=== PATIENT | male | born 1965 ===

== ENCOUNTER 2017-02-21 12:18 | Day surgery (SDC) | payer BC ==
[2017-02-21 12:41] VITALS: BMI 34.0
[2017-02-21 12:57] LABS: BASO # 0.1 K/uL (0.0-0.2); BASO % 1.1 % (0.0-2.0); EOS # 0.3 K/uL (0.0-0.7); EOS % 5.1 % (0.0-4.0); LYMPH # 1.9 K/uL (1.0-4.3); LYMPH % 37.2 % (20.0-40.0); MEAN CELL VOLUME 90.5 fL (80.0-94.0); MEAN CORPUSCULAR HEMOGLOBIN 31.1 pg (27.0-31.0); MEAN CORPUSCULAR HGB CONC 34.4 g/dL (33.0-37.0); MEAN PLATELET VOLUME 7.9 fL (7.2-11.7); MONO # 0.5 K/uL (0.0-0.8); MONO % 10.2 % (0.0-10.0); NEUT # 2.4 K/uL (1.8-7.0); NEUT % 46.4 % (50.0-75.0); RBC 5.19 Mil/uL (4.40-5.90); RED CELL DISTRIBUTION WIDTH 13.6 % (11.5-14.5); WHITE BLOOD COUNT 5.2 K/uL (4.8-10.8)
[2017-02-21 12:59] LABS: HEMOGLOBIN 16.2 g/dL (12.0-18.0)
[2017-02-21 13:31] LABS: BLOOD UREA NITROGEN 13 mg/dL (9-20); CALCIUM 8.2 mg/dl (8.6-10.4); GFR AFRICAN-AMERICAN > 60; GFR NON-AFRICAN AMERICAN > 60
[2017-02-21] MEDS ORDERED: Bupivacaine HCl 0.5% PF (10 ml) Inj ONE (15:14)
[2017-02-21] MEDS ORDERED: Lactated Ringer's 1,000 ML IV ONE ×2 (15:20→17:45)
[2017-02-21] MEDS ORDERED: Propofol 10 mg/ml Inj (20 ML) ONE (15:24)
[2017-02-21] MEDS ORDERED: Midazolam 2 MG/2 ML VIAL ONE (15:24)
[2017-02-21] MEDS: ceFAZolin IV 2 gm in Dextrose 2 GM/50 ML BAG IVPB ONE ×2 (15:30→15:35)
[2017-02-21] MEDS ORDERED: Oxycodone/Acetaminophen 5/325 mg Tab PO PRN (16:47)
[2017-02-21 17:09] VITALS: O2SAT 100
[2017-02-21 18:13] VITALS: BP 138/68; PULSE 67; RESP 18; TEMP 98
--- NOTE | 2017-02-22 03:25 | HP ---
REASON FOR ADMISSION: Right hydrocelectomy. HISTORY OF PRESENT ILLNESS: Mr. Chino is a very pleasant gentleman. He is a 61 years old. He has scrotal discomfort and pain. He has a large right hydrocele, detected by ultrasound. We discussed the options and he would actually like it removed. We discussed drainage. We discussed surgical removal, which is what he is here for. We discussed observation, we discussed no treatment. But he is very uncomfortable with it, as it gets in his way. He does not like the way it looks, and it is just uncomfortable for him when he spends too much time walking and it is a fairly large hydrocele fat. PAST MEDICAL AND SURGICAL HISTORY: Significant. He has underlying . No history of an IL. His previous surgery is noted to be . MEDICATIONS: See the chart. ALLERGIES: NONE. 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 REVIEW OF SYSTEMS: As listed above. No weight loss, chest pain, shortness of breath or the like. The patient has minimal voiding complaints. PHYSICAL EXAMINATION: GENERAL: A well-nourished male, in no apparent distress. HEENT: Sclera nonicteric, noninjected, normocephalic, atraumatic. LUNGS: Clear. HEART: Normal S1 and S2. ABDOMEN: Overall, soft. The incisional scar is noted. He has a normal male phallus, not circumcised, foreskin retracts very easily. His left hemiscrotum within normal limits. May be some fluid, otherwise hemiscrotum has a large hydrocele noted. See the pictures that are included. IMPRESSION: The diagnosis then is a right hydrocele (actually bilateral). PLAN: We discussed the options. We discussed observation versus surgery versus drainage. I did not put a drain, as just draining the water out would not be helpful. Discussing the options to the patient, he was given the offer today for a hydrocelectomy on the right side. I explained to the patient details, risks and benefits including the risks for recurrence. Discussing all of the options, we will plan to proceed: 1. Antibiotic prophylaxis. 2. Hydrocelectomy. Then further plans will follow. I did explain the risk of recurrence. I discussed also that initially there will be some good swelling to be expected. Further plans to follow. Henry Hurtado MD [facility] # [id number]
--- NOTE | 2017-02-22 13:11 | OP ---
PROCEDURE DATE: PREOPERATIVE DIAGNOSIS: Right hydrocele. POSTOPERATIVE DIAGNOSIS: Right hydrocele. PROCEDURE: Right hydrocelectomy. SURGEON: Henry Hurtado MD COMPLICATIONS: No complications. BLOOD LOSS: Less than 10 mL. DRAIN: A [place] drain. FINDINGS: There is about 300 mL to 400 mL of clear yellow fluid. Otherwise, unremarkable hydrocele sac. The testicle itself was within normal limits. Appearance, white testicle. Normal size. It is a simple cyst. There were no complications. At the termination of the procedure, we had the testicle in proper anatomic position. We gave the patient Marcaine for postop analgesia. We provided scrotal support and a [place], which was secured in with sutures. INDICATION: See history and physical. This is a very pleasant gentleman, and he is here for the above procedure. We discussed risks, benefits, and alternatives. DESCRIPTION OF PROCEDURE: After obtaining informed consent, the patient was placed on the table. Routine monitors were placed. Time-out was called to confirm the patient, positioning. The patient was given antibiotic prophylactics. We now made a transverse incision in the portion of the scrotum. We went down slowly, carefully, meticulously until we dissected off the hydrocele sac. We delivered the sac intact. Now, at this point, once we had . We opened up the sac. Drained the fluid, clear yellow fluid about 300 mL to 400 mL. We everted the edges of the sac. We sent a little specimen just to confirm the pathology. We examined the testicle and it looked a nice white color. We now everted the edges and repaired in Lord technique. I actually took the pictures afterwards to demonstrate. We had obliterated the space nicely and not too tight. We examined the testicle. It had good color. We returned it to its anatomical position. We placed the [place] in below. We delivered it through the wound and secured it into place. We now closed the wound. We had injected the cord with Marcaine. We injected the skin with Marcaine. We closed with a mattress suture. We applied scrotal support. The patient tolerated these without complications. Further plans will follow. Henry Hurtado MD
--- NOTE | 2017-02-23 23:13 | CARD ---
APPROVED REPORT EKG Measurement Heart [id number] <Conclusion> Normal sinus rhythm Anterior infarct, age undetermined Abnormal ECG
== END 2017-02-21 18:35 | disposition home or self-care (01) ==
LOC: C.SDS 12:18
PROVIDERS: ATTEND Urology
DX: N43.3 Hydrocele, unspecified (principal); N43.2 Other hydrocele
CPT/HCPCS: 36415; 55040; 80048; 85025; 88302; 93005; J0690; J2250; J2704; J3010; J7120

== ENCOUNTER 2017-06-13 05:42 | Inpatient (IN) | payer BC ==
[2017-06-06 09:11] VITALS: BMI 32.5
[2017-06-13] MEDS ORDERED: Midazolam 2 MG/2 ML VIAL ONE (07:28)
[2017-06-13] MEDS ORDERED: Rocuronium 10 mg/ml (10 ml) ONE (07:28)
[2017-06-13] MEDS ORDERED: Propofol 10 mg/ml Inj (20 ML) ONE ×2 (07:28→08:36)
[2017-06-13] MEDS ORDERED: Succinylcholine Chloride 20 mg/ml Syr (5 ml) IV ONE (07:28)
[2017-06-13] MEDS: ceFAZolin 1 gm in NS 2 GM/200 ML BAG IVPB ONE ×2 (08:15→08:17)
[2017-06-13] MEDS ORDERED: Rocuronium 10 mg/ml (5 ml) ONE (09:44)
--- NOTE | 2017-06-13 11:42 | PCM.SURG1 ---
Surgeon's Initial Post Op Note - Surgeon's Notes Surgeon: Dr. Coronado Skoog Operator: Dr. Rodriguez PGY-3, Martín Mccloud MS3 Type of Anesthesia: General Endo Anesthesia Administered By: Dr. Prieto Pre-Operative Diagnosis: Incisional Hernia Operative Findings: See operative report Post-Operative Diagnosis: Same Operation Performed: 1) Incisional Hernia repair with mesh. 2) Extensive lysis of dense adhesions. 3) Repair of enterotomy & SB resection with anastomosis x 2 Specimen/Specimens Removed: Old mesh, part of small bowel Estimated Blood Loss: EBL {In ML}: 250 Blood Products Given: N/A Drains Used: No Drains Post-Op Condition: Good Date of Surgery/Procedure: 06/13/17 Time of Surgery/Procedure: 11:42
[2017-06-13] MEDS: HYDROmorphone 0.5 mg/0.5 ml ISec IVP PRN ×2 (12:15→12:35)
[2017-06-13] MEDS: cefOXitin IV 1 gm in Dextrose 1 GM/50 ML BAG IVPB SCH ×2 (12:36→19:12)
[2017-06-13] MEDS: metroNIDAZOLE IV 500 mg/100 ml 500 MG/100 ML BAG IVPB SCH ×2 (14:00→21:07)
[2017-06-13] MEDS: Lactated Ringer's 1,000 ML IV SCH ×2 (15:06→20:45)
--- NOTE | 2017-06-13 22:25 | OP ---
PROCEDURE DATE: 06/13/2017 PREOPERATIVE DIAGNOSIS: Incisional hernia, recurrent. PROCEDURE: Repair of incisional hernia with mesh and small bowel resection with anastomosis x3. SURGEON: Crow Coronado Jr., MD COUNT TEAM MEMBER: Dr. Rodriguez. ANESTHESIOLOGIST: Dr. Prieto. INDICATIONS: The patient is an older middle aged man who has history of diverticulitis, repair of an incisional hernia, multiple problems like this in the past. He is since having increasing pain related to hernia, just the left of the umbilicus. OPERATIVE FINDINGS: The previous mesh three times again to the small bowel, three times the small bowel had to be repaired. After the repair had been carried out, we completely irrigated out the abdomen, and we completely changed our gowns etc., and then we repaired. There was no large biological mesh. Instead we repaired with a Ventrio mesh, measuring approximately 8 x 11. The defect itself was approximately 4 inches long. Subsequent to this, we then closed the abdomen with running sutures of Novafil and filled the mesh into place. Blood loss was 250 mL or less, and the operation carried out was repair of recurrent incisional hernia with mesh and small bowel resection with anastomoses x3. The operation was much more difficult than usual that any dense intraabdominal adhesions required resection of some previously placed mesh, resection of small bowel, and dense adhesions which made the operation more difficult and quite long. Operation carried out, repair of recurrent incisional hernia with mesh and small bowel resection with anastomosis x3. The bowel was thoroughly searched before and after we repaired the enterotomies and before resecting the small bowel multiple times and checked again to make sure that there was no other injury. The visible portions of the colon were also checked the same way to make sure that there was no other injury or occult injury to the bowel and none was identified. The abdomen w as washed out again with solution. Crow Coronado Jr., MD
[2017-06-14] MEDS: cefOXitin IV 1 gm in Dextrose 1 GM/50 ML BAG IVPB SCH ×3 (03:30→19:23)
[2017-06-14] MEDS: metroNIDAZOLE IV 500 mg/100 ml 500 MG/100 ML BAG IVPB SCH ×3 (05:30→21:25)
[2017-06-14 08:10] LABS: BASO % 0.6 % (0.0-2.0); EOS # 0.2 K/uL (0.0-0.7); LYMPH % 13.7 % (20.0-40.0); MEAN CELL VOLUME 90.9 fL (80.0-94.0); MEAN CORPUSCULAR HEMOGLOBIN 31.4 pg (27.0-31.0); MEAN CORPUSCULAR HGB CONC 34.5 g/dL (33.0-37.0); MEAN PLATELET VOLUME 8.2 fL (7.2-11.7); MONO # 0.7 K/uL (0.0-0.8); MONO % 10.1 % (0.0-10.0); NEUT # 5.3 K/uL (1.8-7.0); NEUT % 72.6 % (50.0-75.0); NRBC % 0.1 % (0.0-2.0); RBC 4.77 Mil/uL (4.40-5.90); RED CELL DISTRIBUTION WIDTH 13.9 % (11.5-14.5); WHITE BLOOD COUNT 7.3 K/uL (4.8-10.8)
[2017-06-14 08:31] LABS: ALBUMIN 3.3 g/dL (3.5-5.0); ALT/SGPT 47 U/L (21-72); AST/SGOT 26 U/L (17-59); BLOOD UREA NITROGEN 16 mg/dL (9-20); CALCIUM 7.7 mg/dl (8.6-10.4); GFR AFRICAN-AMERICAN > 60; GFR NON-AFRICAN AMERICAN > 60
--- NOTE | 2017-06-14 08:58 | CP.PCM.PN ---
Subjective - Date & Time of Evaluation Date of Evaluation: 06/14/17 Time of Evaluation: 06:40 - Subjective Subjective: General Surgery- Dr. Coronado Patient seen and examined at bedside this AM. No acute events overnight. Denies currnt BM or Flatus. Fernandez w/ good urine output. NGT minimal bilious fluid. Dressing C/D/I. Pain controlled on PERSONNEL COORDINATOR. Objective - Vital Signs/Intake and Output Vital Signs (last 24 hours): Temp Pulse Resp BP Pulse Ox 98.4 F 90 20 126/76 97 06/14/17 08:16 06/14/17 08:16 06/14/17 08:16 06/14/17 08:16 06/14/17 08:16 Intake and Output: 06/14/17 06/14/17 06:59 18:59 Intake Total 1600 Output Total 1330 Balance 270 - Medications Medications: Current Medications Enoxaparin Sodium (Lovenox) 40 mg SC DAILY [facility] Ergocalciferol (Drisdol 50,000 Intl Units Cap) 1 cap PO DAILY [facility] Hydrochlorothiazide (Microzide) 12.5 mg PO DAILY [facility] Hydromorphone/Sodium Chloride (Dilaudid Internet Marketing Consultant) 6 mg IV Q4H PRN; Protocol PRN Reason: Pain, moderate (4-7) Last Admin: 06/14/17 06:30 Dose: 6 mg Cefoxitin Sodium (Mefoxin Iv 1 Gm Duplex) 1 gm in 50 mls @ 50 mls/hr IVPB Q8H [facility] PRN Reason: Protocol Stop: 06/16/17 12:01 Last Admin: 06/14/17 03:30 Dose: 50 mls/hr Metronidazole (Flagyl) 500 mg in 100 mls @ 100 mls/hr IVPB Q8 [facility] PRN Reason: Protocol Stop: 06/16/17 14:01 Last Admin: 06/14/17 05:30 Dose: 100 mls/hr Lactated Ringer's (Lactated Ringer's) 1,000 mls @ 100 mls/hr IV .Q10H [facility] Last Admin: 06/13/17 20:45 Dose: 100 mls/hr Losartan Potassium (Cozaar) 100 mg PO DAILY [facility] Multivitamins (Hexavitamin) 1 tab PO DAILY [facility] Ondansetron HCl (Zofran Inj) 4 mg IVP Q6 PRN PRN Reason: Nausea/Vomiting Pantoprazole Sodium (Protonix Inj) 40 mg IVP DAILY [facility] Last Admin: 06/14/17 02:27 Dose: 40 mg - Labs Labs: 06/14/17 07:56 06/14/17 07:56 - Constitutional Appears: Non-toxic, No Acute Distress - Head Exam Head Exam: ATRAUMATIC - Eye Exam Eye Exam: EOMI - ENT Exam ENT Exam: Mucous Membranes Moist - Respiratory Exam Respiratory Exam: NORMAL BREATHING PATTERN. absent: Accessory Muscle Use, Respiratory Distress - Cardiovascular Exam Cardiovascular Exam: +S1, +S2. absent: Bradycardia, Tachycardia - GI/Abdominal Exam GI & Abdominal Exam: Distended, Soft, Tenderness (appropriately tender around incision). absent: Firm, Guarding, Rigid - Exam Additional comments: fernandez in place w/ clear output - Extremities Exam Extremities Exam: Normal Inspection. absent: Calf Tenderness - Neurological Exam Neurological Exam: Alert, Awake, Oriented x3 - Psychiatric Exam Psychiatric exam: Normal Affect - Skin Skin Exam: Normal Color, Warm Assessment and Plan - Assessment and Plan (Free Text) Assessment: 51M s/p Incisional Hernia repair with mesh, Extensive lysis of dense adhesions , Repair of enterotomy & SB resection with anastomosis x 2, POD#1 Plan: - d/c Fernandez - pain control on PERSONNEL COORDINATOR prn - NGT in place - strict I/O - OOB and ambulate & IC use - NPO - Discussed w/ Dr. Coronado surgical attending PGY1
[2017-06-14] MEDS: Multiple Vitamins Tab PO SCH (09:08)
[2017-06-14] MEDS: Ergocalciferol 50,000 Intl Units Cap PO SCH (09:09)
--- NOTE | 2017-06-14 09:24 | CP.PCM.CON ---
History of Present Illness - History of Present Illness History of Present Illness: CC: pre Op management 51 y/o male HTN, & former smoker. Patient had perforated Diverticulitis on 2011 , Had emergent surgery. He develop prolong ileus and abdominal hernia. For a year was advise c/o surgery for repair of hernia but got busy. Yesterday has surgery, adhelysis and ileostomy. Patient presently on NGT/ no flatus. Review of Systems - Review of Systems Systems not reviewed;Unavailable: Acuity of Condition - Constitutional Constitutional: Fever, Malaise. absent: Headache, Night Sweats, Sleep Apnea, Weight Loss, Weakness - EENT Eyes: absent: Discharge, Sees Flashes, Spots in Vision Ears: absent: Decreased Hearing, Ear Discharge, Dizziness Nose/Mouth/Throat: absent: Nasal Congestion, Sinus Pressure, Bleeding Gums, Dry Mouth, Mouth Pain - Cardiovascular Cardiovascular: absent: Chest Pain, Diaphoresis, Irregular Heart Rhythm, Leg Edema, Leg Ulcers, Orthopnea, Pedal Edema, Slow Heart Rate - Respiratory Respiratory: absent: Cough, Hemoptysis, Dyspnea on Exertion, Change in Mucous Color - Gastrointestinal Gastrointestinal: absent: Coffee Ground Emesis, Constipation, Diarrhea, Heartburn, Loose Stools, Nausea, Vomiting - Genitourinary Genitourinary: absent: Flank Pain, Nocturia, Urinary Incontinence, Urinary Urgency - Musculoskeletal Musculoskeletal: absent: Abnormal Gait, Myalgias, Neck Pain, Numbness, Stiffness , Tingling - Integumentary Integumentary: absent: Rash, Skin Ulcer, Sores, Swelling - Neurological Neurological: absent: Burning Sensations, Confusion, Focal Weakness, Headaches, Radicular Pain - Psychiatric Psychiatric: absent: Anxiety, Behavioral Changes, Depression, Difficulty Concentrating - Endocrine Endocrine: absent: Change in Libido, Fatigue, Palpitations, Polydipsia, Polyphagia, Polyuria Past Patient History - Infectious Disease Hx of Infectious Diseases: None - Past Medical History & Family History Past Medical History?: Yes - Past Social History Smoking Status: Never Smoked - CARDIAC Hx Cardiac Disorders: Yes (abn ekg dr esther oliver notified abn ekg) Hx Hypertension: Yes - PULMONARY Hx Respiratory Disorders: No - NEUROLOGICAL Hx Neurological Disorder: No - HEENT Hx HEENT Problems: Yes (glasses) - RENAL Hx Chronic Kidney Disease: Yes Hx Kidney Stones: Yes - ENDOCRINE/METABOLIC Hx Endocrine Disorders: Yes Hx Hypothyroidism: Yes (no longer needs meds) - HEMATOLOGICAL/ONCOLOGICAL Hx Blood Disorders: No - INTEGUMENTARY Hx Dermatological Problems: No - MUSCULOSKELETAL/RHEUMATOLOGICAL Hx Musculoskeletal Disorders: No Hx Falls: No - GASTROINTESTINAL Hx Gastrointestinal Disorders: Yes Hx Colostomy: Yes (due to ruptured diverticulosis then reversal) Hx Diverticulitis: Yes Hx Gall Bladder Disease: Yes Other/Comment: UMBILICAL HERNIA - GENITOURINARY/GYNECOLOGICAL Hx Genitourinary Disorders: Yes Other/Comment: hydrocelectomy - PSYCHIATRIC Hx Psychophysiologic Disorder: No Hx Substance Use: No - SURGICAL HISTORY Hx Surgeries: Yes Hx Cholecystectomy: Yes Hx Herniorrhaphy: Yes (VENTRAL/INCISIONAL) Other/Comment: lithotripsy - ANESTHESIA Hx Anesthesia: Yes Hx Anesthesia Reactions: No Hx Malignant Hyperthermia: No Has any member of the family had a problem w/ anesthesia?: No Meds Allergies/Adverse Reactions: Allergies Allergy/AdvReac Type Severity Reaction Status Date / Time No Known Allergies Allergy Verified 06/06/17 09:10 - Medications Medications: Current Medications Enoxaparin Sodium (Lovenox) 40 mg SC DAILY [facility] Ergocalciferol (Drisdol 50,000 Intl Units Cap) 1 cap PO DAILY [facility] Last Admin: 06/14/17 09:09 Dose: Not Given Hydromorphone/Sodium Chloride (Dilaudid Icu Nurse) 6 mg IV Q4H PRN; Protocol PRN Reason: Pain, moderate (4-7) Last Admin: 06/14/17 06:30 Dose: 6 mg Cefoxitin Sodium (Mefoxin Iv 1 Gm Duplex) 1 gm in 50 mls @ 50 mls/hr IVPB Q8H [facility] PRN Reason: Protocol Stop: 06/16/17 12:01 Last Admin: 06/14/17 03:30 Dose: 50 mls/hr Metronidazole (Flagyl) 500 mg in 100 mls @ 100 mls/hr IVPB Q8 [facility] PRN Reason: Protocol Stop: 06/16/17 14:01 Last Admin: 06/14/17 05:30 Dose: 100 mls/hr Potassium Chloride/Dextrose/Sod Cl (Potassium Chl 20 Meq In D5-1/2ns) 1,000 mls @ 120 mls/hr IV .Q8H20M [facility] Multivitamins (Hexavitamin) 1 tab PO DAILY [facility] Last Admin: 06/14/17 09:08 Dose: Not Given Nitroglycerin (Nitro-Bid 2% Oint) 0.5 ea TOP Q12 [facility] Ondansetron HCl (Zofran Inj) 4 mg IVP Q6 PRN PRN Reason: Nausea/Vomiting Pantoprazole Sodium (Protonix Inj) 40 mg IVP DAILY [facility] Physical Exam - Constitutional Appears: Well - Head Exam Head Exam: NORMAL INSPECTION - Eye Exam Eye Exam: absent: Normal appearance Pupil Exam: absent: Unequal - ENT Exam ENT Exam: absent: Mucous Membranes Moist - Neck Exam Neck exam: Positive for: Full Rom. Negative for: Lymphadenopathy, Thyromegaly - Respiratory Exam Respiratory Exam: Decreased Breath Sounds. absent: Rales, Rhonchi, Wheezes - Cardiovascular Exam Cardiovascular Exam: REGULAR RHYTHM, +S1, +S2. absent: Gallop, JVD, Systolic Murmur - GI/Abdominal Exam GI & Abdominal Exam: Distended, Soft. absent: Guarding - Extremities Exam Extremities exam: Positive for: full ROM, normal capillary refill. Negative for : calf tenderness, joint swelling, pedal edema Results - Vital Signs Recent Vital Signs: Last Vital Signs Temp 98.4 F 06/14/17 08:16 Pulse 90 06/14/17 08:16 Resp 20 06/14/17 08:16 BP 126/76 06/14/17 08:16 Pulse Ox 97 06/14/17 08:16 - Labs Result Diagrams: 06/14/17 07:56 06/14/17 07:56 Labs: Laboratory Results - last 24 hr 06/14/17 06/14/17 07:56 07:56 WBC 7.3 RBC 4.77 Hgb 15.0 Hct 43.4 MCV 90.9 MCH 31.4 H MCHC 34.5 RDW 13.9 Plt Count 242 MPV 8.2 Neut % (Auto) 72.6 Lymph % (Auto) 13.7 L [place] % (Auto) 10.1 H Eos % (Auto) 3.0 Baso % (Auto) 0.6 Neut # (Auto) 5.3 Lymph # (Auto) 1.0 [place] # (Auto) 0.7 Eos # (Auto) 0.2 Baso # (Auto) 0.0 Sodium 139 Potassium 4.3 Chloride 101 Carbon Dioxide 27 Anion Gap 15 BUN 16 Creatinine 1.1 Est GFR ( Amer) > 60 Est GFR (Non-Af Amer) > 60 Random Glucose 124 H Calcium 7.7 L Total Bilirubin 1.1 AST 26 ALT 47 Alkaline Phosphatase 53 Total Protein 6.5 Albumin 3.3 L Globulin 3.2 Albumin/Globulin Ratio 1.0 Assessment & Plan - Assessment and Plan (Free Text) Assessment: s/p Abdominal Surgery' HTN Cont supportive care Change BP meds topical
[2017-06-14] MEDS: Nitroglycerin 2% Ointment Foilpak UD TOP SCH ×2 (10:00→21:28)
[2017-06-14] MEDS: Enoxaparin 40 mg Syringe SC SCH (10:00)
[2017-06-14] MEDS: Potassium Ch 20mEq in D5-1/2NS 1,000 ML IV SCH ×3 (10:30→20:52)
[2017-06-14] MEDS: Lactated Ringer's 1,000 ML IV SCH (13:51)
[2017-06-15] MEDS: Potassium Ch 20mEq in D5-1/2NS 1,000 ML IV SCH ×4 (02:14→18:43)
[2017-06-15] MEDS: cefOXitin IV 1 gm in Dextrose 1 GM/50 ML BAG IVPB SCH ×3 (03:35→19:45)
[2017-06-15] MEDS: metroNIDAZOLE IV 500 mg/100 ml 500 MG/100 ML BAG IVPB SCH ×3 (05:55→21:33)
[2017-06-15 07:18] LABS: MEAN CELL VOLUME 90.7 fL (80.0-94.0); MEAN CORPUSCULAR HEMOGLOBIN 30.7 pg (27.0-31.0); MEAN CORPUSCULAR HGB CONC 33.9 g/dL (33.0-37.0); MEAN PLATELET VOLUME 8.1 fL (7.2-11.7); RBC 4.17 Mil/uL (4.40-5.90); RED CELL DISTRIBUTION WIDTH 14.2 % (11.5-14.5); WHITE BLOOD COUNT 8.5 K/uL (4.8-10.8)
[2017-06-15 07:20] LABS: BLOOD UREA NITROGEN 13 mg/dL (9-20); CALCIUM 8.2 mg/dl (8.6-10.4); GFR AFRICAN-AMERICAN > 60; GFR NON-AFRICAN AMERICAN > 60
[2017-06-15 07:25] LABS: HEMOGLOBIN 12.8 g/dL (12.0-18.0)
--- NOTE | 2017-06-15 08:35 | CP.PCM.PN ---
Subjective - Date & Time of Evaluation Date of Evaluation: 06/15/17 Time of Evaluation: 08:15 - Subjective Subjective: Pt no flatus; no CP, no SOB, no palpitation Walk a little yesterday Objective - Vital Signs/Intake and Output Vital Signs (last 24 hours): Temp Pulse Resp BP Pulse Ox 97.8 F 87 18 105/65 97 06/15/17 07:45 06/15/17 07:45 06/15/17 07:45 06/15/17 07:45 06/15/17 07:45 Intake and Output: 06/15/17 06/15/17 06:59 18:59 Intake Total 1920 Output Total 1050 Balance 870 - Medications Medications: Current Medications Enoxaparin Sodium (Lovenox) 40 mg SC DAILY [facility] Last Admin: 06/14/17 10:00 Dose: 40 mg Ergocalciferol (Drisdol 50,000 Intl Units Cap) 1 cap PO DAILY [facility] Last Admin: 06/14/17 09:09 Dose: Not Given Hydromorphone/Sodium Chloride (Dilaudid Devil Tender) 6 mg IV Q4H PRN; Protocol PRN Reason: Pain, moderate (4-7) Last Admin: 06/14/17 20:46 Dose: 6 mg Cefoxitin Sodium (Mefoxin Iv 1 Gm Duplex) 1 gm in 50 mls @ 50 mls/hr IVPB Q8H [facility] PRN Reason: Protocol Stop: 06/16/17 12:01 Last Admin: 06/15/17 03:35 Dose: 50 mls/hr Metronidazole (Flagyl) 500 mg in 100 mls @ 100 mls/hr IVPB Q8 [facility] PRN Reason: Protocol Stop: 06/16/17 14:01 Last Admin: 06/15/17 05:55 Dose: 100 mls/hr Potassium Chloride/Dextrose/Sod Cl (Potassium Chl 20 Meq In D5-1/2ns) 1,000 mls @ 120 mls/hr IV .Q8H20M [facility] Last Admin: 06/15/17 02:14 Dose: Not Given Multivitamins (Hexavitamin) 1 tab PO DAILY [facility] Last Admin: 06/14/17 09:08 Dose: Not Given Nitroglycerin (Nitro-Bid 2% Oint) 0.5 ea TOP Q12 [facility] Last Admin: 06/14/17 21:28 Dose: 0.5 ea Ondansetron HCl (Zofran Inj) 4 mg IVP Q6 PRN PRN Reason: Nausea/Vomiting Pantoprazole Sodium (Protonix Inj) 40 mg IVP DAILY [facility] - Labs Labs: 06/15/17 06:56 06/15/17 06:56 - Constitutional Appears: No Acute Distress - Eye Exam Eye Exam: Normal appearance - ENT Exam ENT Exam: Mucous Membranes Moist - Neck Exam Neck Exam: Full ROM. absent: Lymphadenopathy, Tenderness - Respiratory Exam Respiratory Exam: Decreased Breath Sounds. absent: Rales, Rhonchi, Wheezes - Cardiovascular Exam Cardiovascular Exam: REGULAR RHYTHM, +S1, +S2. absent: Gallop, JVD, Murmur - GI/Abdominal Exam GI & Abdominal Exam: Soft, Tenderness. absent: Guarding (no bowel sounds) - Extremities Exam Extremities Exam: Full ROM, Normal Capillary Refill. absent: Calf Tenderness, Joint Swelling, Pedal Edema Assessment and Plan - Assessment and Plan (Free Text) Assessment: s/p Abd surgery HTN Cont supportive care
[2017-06-15] MEDS: Multiple Vitamins Tab PO SCH (09:06)
[2017-06-15] MEDS: Ergocalciferol 50,000 Intl Units Cap PO SCH (09:06)
[2017-06-15] MEDS: Enoxaparin 40 mg Syringe SC SCH (09:13)
[2017-06-15] MEDS: Nitroglycerin 2% Ointment Foilpak UD TOP SCH ×2 (09:13→21:33)
--- NOTE | 2017-06-15 10:51 | CP.PCM.PN ---
Subjective - Date & Time of Evaluation Date of Evaluation: 06/15/17 Time of Evaluation: 10:47 - Subjective Subjective: Surgery: Dr. Coronado Patient doing well today. He reports pain controlled. Patient was OOB today. He denies n/v/f/c. Per nursing NGT put out 100cc overnight. He denies bowel function. Objective - Vital Signs/Intake and Output Vital Signs (last 24 hours): Temp Pulse Resp BP Pulse Ox 97.8 F 87 18 105/65 97 06/15/17 07:45 06/15/17 07:45 06/15/17 07:45 06/15/17 07:45 06/15/17 07:45 Intake and Output: 06/15/17 06/15/17 06:59 18:59 Intake Total 1920 Output Total 1050 Balance 870 - Medications Medications: Current Medications Enoxaparin Sodium (Lovenox) 40 mg SC DAILY [facility] Last Admin: 06/15/17 09:13 Dose: 40 mg Ergocalciferol (Drisdol 50,000 Intl Units Cap) 1 cap PO DAILY [facility] Last Admin: 06/15/17 09:06 Dose: Not Given Hydromorphone/Sodium Chloride (Dilaudid Wire Bender) 6 mg IV Q4H PRN; Protocol PRN Reason: Pain, moderate (4-7) Last Admin: 06/14/17 20:46 Dose: 6 mg Cefoxitin Sodium (Mefoxin Iv 1 Gm Duplex) 1 gm in 50 mls @ 50 mls/hr IVPB Q8H [facility] PRN Reason: Protocol Stop: 06/16/17 12:01 Last Admin: 06/15/17 03:35 Dose: 50 mls/hr Metronidazole (Flagyl) 500 mg in 100 mls @ 100 mls/hr IVPB Q8 [facility] PRN Reason: Protocol Stop: 06/16/17 14:01 Last Admin: 06/15/17 05:55 Dose: 100 mls/hr Potassium Chloride/Dextrose/Sod Cl (Potassium Chl 20 Meq In D5-1/2ns) 1,000 mls @ 120 mls/hr IV .Q8H20M [facility] Last Admin: 06/15/17 10:44 Dose: Not Given Multivitamins (Hexavitamin) 1 tab PO DAILY [facility] Last Admin: 06/15/17 09:06 Dose: Not Given Nitroglycerin (Nitro-Bid 2% Oint) 0.5 ea TOP Q12 [facility] Last Admin: 06/15/17 09:13 Dose: 0.5 ea Ondansetron HCl (Zofran Inj) 4 mg IVP Q6 PRN PRN Reason: Nausea/Vomiting Pantoprazole Sodium (Protonix Inj) 40 mg IVP DAILY [facility] Last Admin: 06/15/17 09:13 Dose: 40 mg - Labs Labs: 06/15/17 06:56 06/15/17 06:56 - Constitutional Appears: Non-toxic, No Acute Distress - Head Exam Head Exam: ATRAUMATIC, NORMOCEPHALIC - Eye Exam Eye Exam: EOMI, Normal appearance - ENT Exam ENT Exam: Mucous Membranes Moist - Respiratory Exam Respiratory Exam: NORMAL BREATHING PATTERN. absent: Respiratory Distress - Cardiovascular Exam Cardiovascular Exam: REGULAR RHYTHM. absent: Tachycardia - GI/Abdominal Exam GI & Abdominal Exam: Soft. absent: Distended, Guarding, Tenderness, Rebound Additional comments: dressing CDI - Extremities Exam Extremities Exam: Normal Inspection. absent: Calf Tenderness - Neurological Exam Neurological Exam: Alert, Awake, Oriented x3 Assessment and Plan - Assessment and Plan (Free Text) Assessment: 51 y/o male s/p incisional hernia repair w/ mesh, SB resection and anastomosis POD2 Plan: -d/c NGT -de-escalate pain medications -OOB -IS use -ok for ice chips -monitor for bowel function -further recs per Dr. Ivonne Ojeda PGY3
--- NOTE | 2017-06-15 11:16 | CP.PCM.PN ---
Subjective - Date & Time of Evaluation Date of Evaluation: 06/15/17 Time of Evaluation: 11:13 - Subjective Subjective: PGY-1 surgery progress note for Dr Coronado. No acute events overnight. Patient denied passing flatus. He is utilizing ice chips. Stated he ambulated yesterday. Stated he is doing okay with the pain. NGT still in place. Objective - Vital Signs/Intake and Output Vital Signs (last 24 hours): Temp Pulse Resp BP Pulse Ox 97.8 F 87 18 105/65 97 06/15/17 07:45 06/15/17 07:45 06/15/17 07:45 06/15/17 07:45 06/15/17 07:45 Intake and Output: 06/15/17 06/15/17 06:59 18:59 Intake Total 1920 Output Total 1050 Balance 870 - Medications Medications: Current Medications Enoxaparin Sodium (Lovenox) 40 mg SC DAILY [facility] Last Admin: 06/15/17 09:13 Dose: 40 mg Ergocalciferol (Drisdol 50,000 Intl Units Cap) 1 cap PO DAILY [facility] Last Admin: 06/15/17 09:06 Dose: Not Given Hydromorphone/Sodium Chloride (Dilaudid Cigar Brander) 6 mg IV Q4H PRN; Protocol PRN Reason: Pain, moderate (4-7) Last Admin: 06/14/17 20:46 Dose: 6 mg Cefoxitin Sodium (Mefoxin Iv 1 Gm Duplex) 1 gm in 50 mls @ 50 mls/hr IVPB Q8H [facility] PRN Reason: Protocol Stop: 06/16/17 12:01 Last Admin: 06/15/17 03:35 Dose: 50 mls/hr Metronidazole (Flagyl) 500 mg in 100 mls @ 100 mls/hr IVPB Q8 [facility] PRN Reason: Protocol Stop: 06/16/17 14:01 Last Admin: 06/15/17 05:55 Dose: 100 mls/hr Potassium Chloride/Dextrose/Sod Cl (Potassium Chl 20 Meq In D5-1/2ns) 1,000 mls @ 120 mls/hr IV .Q8H20M [facility] Last Admin: 06/15/17 10:44 Dose: Not Given Multivitamins (Hexavitamin) 1 tab PO DAILY [facility] Last Admin: 06/15/17 09:06 Dose: Not Given Nitroglycerin (Nitro-Bid 2% Oint) 0.5 ea TOP Q12 [facility] Last Admin: 06/15/17 09:13 Dose: 0.5 ea Ondansetron HCl (Zofran Inj) 4 mg IVP Q6 PRN PRN Reason: Nausea/Vomiting Pantoprazole Sodium (Protonix Inj) 40 mg IVP DAILY [facility] Last Admin: 06/15/17 09:13 Dose: 40 mg - Labs Labs: 06/15/17 06:56 06/15/17 06:56 - Additional Findings Additional findings: - Constitutional Appears: Non-toxic, No Acute Distress - Head Exam Head Exam: ATRAUMATIC, NORMOCEPHALIC - Eye Exam Eye Exam: EOMI, Normal appearance - ENT Exam ENT Exam: Mucous Membranes Moist - Respiratory Exam Respiratory Exam: NORMAL BREATHING PATTERN. absent: Respiratory Distress - Cardiovascular Exam Cardiovascular Exam: REGULAR RHYTHM. absent: Tachycardia - GI/Abdominal Exam GI & Abdominal Exam: Soft. absent: Distended, Guarding, Tenderness, Rebound Additional comments: dressing CDI - Extremities Exam Extremities Exam: Normal Inspection. 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 Coronado
[2017-06-15] MEDS ORDERED: Oxycodone/Acetaminophen 5/325 mg Tab PO PRN ×2 (14:24→16:24)
[2017-06-16] MEDS: cefOXitin IV 1 gm in Dextrose 1 GM/50 ML BAG IVPB SCH ×2 (03:12→12:26)
[2017-06-16] MEDS: metroNIDAZOLE IV 500 mg/100 ml 500 MG/100 ML BAG IVPB SCH ×2 (05:28→13:32)
--- NOTE | 2017-06-16 07:45 | CP.PCM.PN ---
Subjective - Date & Time of Evaluation Date of Evaluation: 06/16/17 Time of Evaluation: 07:43 - Subjective Subjective: PGY-[address] surgery progress note for Dr Coronado. No acute events overnight. Patient denied passing flatus. He is utilizing ice chips. Stated he ambulated yesterday. Stated he is doing okay with the pain. NGT removed yesterday. Objective - Vital Signs/Intake and Output Vital Signs (last 24 hours): Temp Pulse Resp BP Pulse Ox 98.3 F 68 20 118/76 97 06/16/17 04:26 06/16/17 04:26 06/16/17 04:26 06/16/17 04:26 06/15/17 23:35 Intake and Output: 06/16/17 06/16/17 06:59 18:59 Intake Total 720 Balance 720 - Medications Medications: Current Medications Acetaminophen (Tylenol 325mg Tab) 650 mg PO Q6 PRN PRN Reason: Pain, moderate (4-7) Last Admin: 06/15/17 20:11 Dose: 650 mg Enoxaparin Sodium (Lovenox) 40 mg SC DAILY [facility] Last Admin: 06/15/17 09:13 Dose: 40 mg Ergocalciferol (Drisdol 50,000 Intl Units Cap) 1 cap PO DAILY [facility] Last Admin: 06/15/17 09:06 Dose: Not Given Cefoxitin Sodium (Mefoxin Iv 1 Gm Duplex) 1 gm in 50 mls @ 50 mls/hr IVPB Q8H [facility] PRN Reason: Protocol Stop: 06/16/17 12:01 Last Admin: 06/16/17 03:12 Dose: 50 mls/hr Metronidazole (Flagyl) 500 mg in 100 mls @ 100 mls/hr IVPB Q8 [facility] PRN Reason: Protocol Stop: 06/16/17 14:01 Last Admin: 06/16/17 05:28 Dose: 100 mls/hr Potassium Chloride/Dextrose/Sod Cl (Potassium Chl 20 Meq In D5-1/2ns) 1,000 mls @ 120 mls/hr IV .Q8H20M [facility] Last Admin: 06/15/17 18:43 Dose: 120 mls/hr Multivitamins (Hexavitamin) 1 tab PO DAILY [facility] Last Admin: 06/15/17 09:06 Dose: Not Given Nitroglycerin (Nitro-Bid 2% Oint) 0.5 ea TOP Q12 [facility] Last Admin: 06/15/17 21:33 Dose: Not Given Ondansetron HCl (Zofran Inj) 4 mg IVP Q6 PRN PRN Reason: Nausea/Vomiting Pantoprazole Sodium (Protonix Inj) 40 mg IVP DAILY [facility] Last Admin: 06/15/17 09:13 Dose: 40 mg Tramadol HCl (Ultram) 50 mg PO TID PRN PRN Reason: Pain, moderate (4-7) - Labs Labs: 06/15/17 06:56 06/15/17 06:56 - Additional Findings Additional findings: - Constitutional Appears: Non-toxic, No Acute Distress - Head Exam Head Exam: ATRAUMATIC, NORMOCEPHALIC - Eye Exam Eye Exam: EOMI, Normal appearance - ENT Exam ENT Exam: Mucous Membranes Moist - Respiratory Exam Respiratory Exam: NORMAL BREATHING PATTERN. absent: Respiratory Distress - Cardiovascular Exam Cardiovascular Exam: REGULAR RHYTHM. absent: Tachycardia - GI/Abdominal Exam GI & Abdominal Exam: Soft. absent: Distended, Guarding, Tenderness, Rebound Additional comments: dressing CDI - Extremities Exam Extremities Exam: Normal Inspection. absent: Calf Tenderness - Neurological Exam Neurological Exam: Alert, Awake, Oriented x3 Assessment and Plan - Assessment and Plan (Free Text) Assessment: 51 y/o male s/p incisional hernia repair w/ mesh, SB resection and anastomosis POD3 Plan: -NGT discontinued yesterday -on oral pain medications - patient only wants tylenol for pain -dressing replaced today with new island dressing -OOB -IS use -ok for ice chips -monitor for bowel function -further recs per Dr. Coronado
[2017-06-16 08:07] LABS: MEAN CELL VOLUME 91.2 fL (80.0-94.0); MEAN CORPUSCULAR HEMOGLOBIN 31.8 pg (27.0-31.0); MEAN CORPUSCULAR HGB CONC 34.8 g/dL (33.0-37.0); MEAN PLATELET VOLUME 8.2 fL (7.2-11.7); RBC 3.79 Mil/uL (4.40-5.90); RED CELL DISTRIBUTION WIDTH 13.9 % (11.5-14.5); WHITE BLOOD COUNT 5.9 K/uL (4.8-10.8)
[2017-06-16 08:25] LABS: BLOOD UREA NITROGEN 13 mg/dL (9-20); CALCIUM 7.8 mg/dl (8.6-10.4); GFR AFRICAN-AMERICAN > 60; GFR NON-AFRICAN AMERICAN > 60
[2017-06-16] MEDS: Multiple Vitamins Tab PO SCH (09:45)
[2017-06-16] MEDS: Nitroglycerin 2% Ointment Foilpak UD TOP SCH (09:45)
[2017-06-16] MEDS: Enoxaparin 40 mg Syringe SC SCH (09:45)
[2017-06-16] MEDS: Ergocalciferol 50,000 Intl Units Cap PO SCH (09:46)
[2017-06-17 02:09] VITALS: RESP 20
[2017-06-17 07:53] VITALS: BP 131/84; PULSE 65; TEMP 98.4; O2SAT 98
--- NOTE | 2017-06-17 08:07 | CP.PCM.PN ---
Subjective - Date & Time of Evaluation Date of Evaluation: 06/17/17 Time of Evaluation: 07:55 - Subjective Subjective: Pt no complain. No CP, no SOB, no palpitation, no cough (+) Bowel movement yesterday Objective - Vital Signs/Intake and Output Vital Signs (last 24 hours): Temp Pulse Resp BP Pulse Ox 98.4 F 65 20 131/84 98 06/17/17 07:15 06/17/17 07:15 06/17/17 07:15 06/17/17 07:15 06/17/17 07:15 Intake and Output: 06/17/17 06/17/17 06:59 18:59 Intake Total 245 Balance 245 - Medications Medications: Current Medications Acetaminophen (Tylenol 325mg Tab) 650 mg PO Q6 PRN PRN Reason: Pain, moderate (4-7) Last Admin: 06/16/17 12:23 Dose: 650 mg Enoxaparin Sodium (Lovenox) 40 mg SC DAILY [facility] Last Admin: 06/16/17 09:45 Dose: 40 mg Ergocalciferol (Drisdol 50,000 Intl Units Cap) 1 cap PO DAILY [facility] Last Admin: 06/16/17 09:46 Dose: 1 cap Multivitamins (Hexavitamin) 1 tab PO DAILY [facility] Last Admin: 06/16/17 09:45 Dose: 1 tab Ondansetron HCl (Zofran Inj) 4 mg IVP Q6 PRN PRN Reason: Nausea/Vomiting Pantoprazole Sodium (Protonix Inj) 40 mg IVP DAILY [facility] Last Admin: 06/16/17 09:47 Dose: 40 mg Tramadol HCl (Ultram) 50 mg PO TID PRN PRN Reason: Pain, moderate (4-7) - Labs Labs: 06/16/17 07:53 06/16/17 07:53 - Constitutional Appears: No Acute Distress - Eye Exam Eye Exam: Normal appearance - ENT Exam ENT Exam: Mucous Membranes Dry - Neck Exam Neck Exam: Full ROM. absent: Lymphadenopathy, Meningismus - Respiratory Exam Respiratory Exam: Clear to Ausculation Bilateral. absent: Rales, Rhonchi, Wheezes - Cardiovascular Exam Cardiovascular Exam: REGULAR RHYTHM, +S1, +S2, Murmur. absent: Gallop, JVD - GI/Abdominal Exam GI & Abdominal Exam: Soft, Hypoactive Bowel Sounds. absent: Tenderness - Extremities Exam Extremities Exam: Normal Capillary Refill. absent: Calf Tenderness, Joint Swelling, Pedal Edema Assessment and Plan - Assessment and Plan (Free Text) Assessment: s/p abd wall surgery w/ resection HTN Cont meds Can be discharge on medical stand point
--- NOTE | 2017-06-17 09:20 | CP.PCM.DIS ---
Provider - Provider Date of Admission: 06/13/17 11:43 Attending physician: Crow Coronado Jr, MD Time Spent in preparation of Discharge (in minutes): 43 Diagnosis - Discharge Diagnosis (1) Incisional hernia Status: Resolved (2) S/P hernia repair Status: Acute Hospital Course - Lab Results Lab Results: Most Recent Lab Values WBC 5.9 K/uL (4.8-10.8) 06/16/17 07:53 RBC 3.79 Mil/uL (4.40-5.90) L 06/16/17 07:53 Hgb 12.0 g/dL (12.0-18.0) 06/16/17 07:53 Hct 34.5 % (35.0-51.0) L 06/16/17 07:53 MCV 91.2 fL (80.0-94.0) 06/16/17 07:53 MCH 31.8 pg (27.0-31.0) H 06/16/17 07:53 MCHC 34.8 g/dL (33.0-37.0) 06/16/17 07:53 RDW 13.9 % (11.5-14.5) 06/16/17 07:53 Plt Count 195 K/uL (130-400) 06/16/17 07:53 MPV 8.2 fL (7.2-11.7) 06/16/17 07:53 Neut % (Auto) 72.6 % (50.0-75.0) 06/14/17 07:56 Lymph % (Auto) 13.7 % (20.0-40.0) L 06/14/17 07:56 [place] % (Auto) 10.1 % (0.0-10.0) H 06/14/17 07:56 Eos % (Auto) 3.0 % (0.0-4.0) 06/14/17 07:56 Baso % (Auto) 0.6 % (0.0-2.0) 06/14/17 07:56 Neut # (Auto) 5.3 K/uL (1.8-7.0) 06/14/17 07:56 Lymph # (Auto) 1.0 K/uL (1.0-4.3) 06/14/17 07:56 [place] # (Auto) 0.7 K/uL (0.0-0.8) 06/14/17 07:56 Eos # (Auto) 0.2 K/uL (0.0-0.7) 06/14/17 07:56 Baso # (Auto) 0.0 K/uL (0.0-0.2) 06/14/17 07:56 Sodium 139 mmol/L (132-148) 06/16/17 07:53 Potassium 4.2 mmol/L (3.6-5.2) 06/16/17 07:53 Chloride 104 mmol/L (98-107) 06/16/17 07:53 Carbon Dioxide 27 mmol/L (22-30) 06/16/17 07:53 Anion Gap 12 (10-20) 06/16/17 07:53 BUN 13 mg/dL (9-20) 06/16/17 07:53 Creatinine 0.9 mg/dL (0.8-1.5) 06/16/17 07:53 Est GFR ( Amer) > 60 06/16/17 07:53 Est GFR (Non-Af Amer) > 60 06/16/17 07:53 Random Glucose 93 mg/dL (75-110) 06/16/17 07:53 Calcium 7.8 mg/dl (8.6-10.4) L 06/16/17 07:53 Total Bilirubin 1.1 mg/dL (0.2-1.3) 06/14/17 07:56 AST 26 U/L (17-59) 06/14/17 07:56 ALT 47 U/L (21-72) 06/14/17 07:56 Alkaline Phosphatase 53 U/L (38-126) 06/14/17 07:56 Total Protein 6.5 g/dL (6.3-8.3) 06/14/17 07:56 Albumin 3.3 g/dL (3.5-5.0) L 06/14/17 07:56 Globulin 3.2 gm/dL (2.2-3.9) 06/14/17 07:56 Albumin/Globulin Ratio 1.0 (1.0-2.1) 06/14/17 07:56 - Hospital Course Hospital Course: Patient was admitted on 06/13 for an elective incisional hernia repair with mesh , he had an extensive lysis of adhesion and a small bowel resection for repair of enterotomy. Patients early post operative course was unevenfull aside from pain. 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 POD 3 patient passing gas tolerating diet, moved bowels. Patient is now POD4 tolerating diet with pain controlled no need for inpatient care Discharge Exam - Head Exam Head Exam: ATRAUMATIC, NORMOCEPHALIC - Eye Exam Eye Exam: EOMI - Respiratory Exam Respiratory Exam: NORMAL BREATHING PATTERN - Cardiovascular Exam Cardiovascular Exam: +S1, +S2 - GI/Abdominal Exam GI & Abdominal Exam: Soft. absent: Distended, Firm, Guarding Additional comments: Dressing clear dry and intact - Neurological Exam Neurological exam: Alert, Oriented x3 - Psychiatric Exam Psychiatric exam: Normal Affect, Normal Mood - Skin Skin Exam: Dry, Intact Discharge Plan - Follow Up Plan Condition: GOOD Disposition: HOME/ ROUTINE Patient education suggested?: Yes Instructions: Abdominal Hernia (DC), Abdominal Wall Hernias, Open Herniorrhaphy (DC) Additional Instructions: OK to shower when you get home. No lifting over 20lbs for 3 weeks and no lifting over 40 for 6weeks. If you develop any concerning symptgoms such as fever chills chest pain please call Dr. Butler office or go to the ER if you feel like you are in distress. Otherwise take tylenol for pain, follow up with Dr. Coronado in office in 7-10 days at which time he will evaluate and possibly remove your aneudy.
[2017-06-17] MEDS: Ergocalciferol 50,000 Intl Units Cap PO SCH (09:21)
[2017-06-17] MEDS: Enoxaparin 40 mg Syringe SC SCH (09:21)
[2017-06-17] MEDS: Multiple Vitamins Tab PO SCH (09:21)
== END 2017-06-17 11:10 | disposition home or self-care (01) | DRG 330 ==
LOC: C.SDS 05:42 → C.9S 11:43 → C.6T 12:51
PROVIDERS: ADMIT Surgery Vascular Surgery; ATTEND Surgery Vascular Surgery
PROC: 0DT80ZZ Resection of Small Intestine, Open Approach (ICD-10-PCS; 2017-06-13)
PROC: 0DN80ZZ Release Small Intestine, Open Approach (ICD-10-PCS; 2017-06-13)
PROC: 0WUF0JZ Supplement Abdominal Wall with Synthetic Substitute, Open Approach (ICD-10-PCS; principal; 2017-06-13 07:45)
DX: K43.2 Incisional hernia without obstruction or gangrene (principal); K56.7 Ileus, unspecified; K66.0 Peritoneal adhesions (postprocedural) (postinfection); I12.9 Hypertensive chronic kidney disease with stage 1 through stage 4 chronic kidney disease, or unspecified chronic kidney disease; N18.9 Chronic kidney disease, unspecified

== ENCOUNTER 2017-06-21 06:28 | Inpatient (IN) | payer BC ==
[2017-06-21 06:28] VITALS: BMI 32.5
[2017-06-21] MEDS ORDERED: Sodium Chloride 0.9% 1,000 ML IV ONE (07:14)
[2017-06-21] MEDS ORDERED: Sodium Chloride 0.9% 1,000 ML ONE (07:28)
[2017-06-21 07:50] LABS: BASO % 0.6 % (0.0-2.0); EOS # 0.3 K/uL (0.0-0.7); EOS % 3.8 % (0.0-4.0); LYMPH # 1.4 K/uL (1.0-4.3); LYMPH % 18.2 % (20.0-40.0); MEAN CELL VOLUME 89.6 fL (80.0-94.0); MEAN CORPUSCULAR HEMOGLOBIN 31.2 pg (27.0-31.0); MEAN CORPUSCULAR HGB CONC 34.8 g/dL (33.0-37.0); MEAN PLATELET VOLUME 8.2 fL (7.2-11.7); MONO # 0.6 K/uL (0.0-0.8); MONO % 7.7 % (0.0-10.0); NEUT # 5.5 K/uL (1.8-7.0); NEUT % 69.7 % (50.0-75.0); RBC 4.64 Mil/uL (4.40-5.90); RED CELL DISTRIBUTION WIDTH 13.5 % (11.5-14.5); WHITE BLOOD COUNT 7.9 K/uL (4.8-10.8)
[2017-06-21 07:53] LABS: HEMOGLOBIN 14.5 g/dL (12.0-18.0)
[2017-06-21] MEDS ORDERED: Iohexol 240 (50 ml) PO STA (07:56)
[2017-06-21 08:18] LABS: ALBUMIN 3.7 g/dL (3.5-5.0); ALT/SGPT 46 U/L (21-72); AST/SGOT 32 U/L (17-59); BLOOD UREA NITROGEN 23 mg/dL (9-20); CALCIUM 8.6 mg/dl (8.6-10.4); GFR AFRICAN-AMERICAN > 60; GFR NON-AFRICAN AMERICAN > 60; LIPASE 514 U/L (23-300)
[2017-06-21] MEDS ORDERED: Iohexol 240 (50 ml) ONE (08:31)
--- NOTE | 2017-06-21 09:02 | C.PDOC ---
History Of Present Illness 51-year-old male, presents to the emergency department with complaints of abdominal distention, nausea and episodes of non-bloody/non-bilious vomiting that started yesterday. Patient is having normal bowel movements. He is s/p hernia repair and bowel resection on 06/[address] Coronado. Denies fever, chest pain or shortness of breath. PMD Richard Garcia MD. Surgeon Crow Coronado MD. Time Seen by Provider: 06/21/17 07:00 Chief Complaint (Nursing): Abdominal Pain History Per: Patient History/Exam Limitations: no limitations Onset/Duration Of Symptoms: Days Past Medical History Reviewed: Historical Data, Nursing Documentation, Vital Signs Vital Signs: Last Vital Signs Temp 98.3 F 06/21/17 06:42 Pulse 81 06/21/17 06:42 Resp 18 06/21/17 06:42 BP 132/88 06/21/17 06:42 Pulse Ox 96 06/21/17 06:42 - Medical History PMH: Anxiety, Diverticulitis, Gall Bladder Disease, HTN, Hypothyroidism (no longer needs meds), Kidney Stones (PASSED ON OWN), Chronic Kidney Disease Surgical History: Cholecystectomy, Endoscopy - [facility] Procedures LG BOWEL STOMA CLOSURE (12/18/12) OTH LYSIS-PERITONEAL ADHES (12/06/13) OTHER OPEN INCISIONAL HERNIA REPAIR WITH GRAFT OR PROSTHESIS (12/06/13) RELEASE SMALL INTESTINE, OPEN APPROACH (06/13/17) REPAIR OF INTESTINE NEC (12/06/13) RESECTION OF SMALL INTESTINE, OPEN APPROACH (06/13/17) SUPPLEMENT ABDOMINAL WALL WITH SYNTH SUB, OPEN APPROACH (06/13/17) Family History: States: No Known Family Hx - Social History Hx Alcohol Use: No Hx Substance Use: No Review Of Systems Constitutional: Negative for: Fever Cardiovascular: Negative for: Chest Pain Respiratory: Negative for: Shortness of Breath Gastrointestinal: Positive for: Nausea, Vomiting, Abdominal Pain Physical Exam - Physical Exam Appears: Non-toxic, No Acute Distress Skin: Normal Color, Warm, Dry, No Rash Head: Normacephalic Eye(s): bilateral: PERRL Nose: Normal Oral Mucosa: Moist Lips: Normal Appearing Neck: Normal ROM Chest: Symmetrical Cardiovascular: Rhythm Regular, No Murmur Respiratory: Normal Breath Sounds, No Accessory Muscle Use Gastrointestinal/Abdominal: Soft, Tenderness (mild, diffuse), Distention (mild) , No Guarding, No Rebound, Other (Midline surgical wound with aneudy. No erythema.) Extremity: Normal ROM, No Deformity, No Swelling Neurological/Psych: Oriented x3, Normal Speech ED Course And Treatment - Laboratory Results Result Diagrams: 06/21/17 07:42 06/21/17 07:42 O2 Sat by Pulse Oximetry: 96 (RA) Pulse Ox Interpretation: Normal Progress Note: CT Abd/Pel w/ contrast, Bloodwork ordered and reviewed. Patient treated with IVFs. Disposition - Disposition - Scribe Statement The provider has reviewed the documentation as recorded by the Scribe (Pooja Gonzales) All medical record entries made by the Scribe were at my direction and personally dictated by me. I have reviewed the chart and agree that the record accurately reflects my personal performance of the history, physical exam, medical decision making, and the department course for this patient. I have also personally directed, reviewed, and agree with the discharge instructions and disposition.
[2017-06-21] MEDS ORDERED: Iodixanol 320 MG/ML 100 ML BOTTLE IV ONE (09:58)
--- NOTE | 2017-06-21 11:18 | CT ---
PROCEDURE: CT Abdomen and Pelvis with contrast HISTORY: recent surgery, distension, r/o SBO COMPARISON: None. TECHNIQUE: Contrast dose: 100 mL Visipaque 320 Radiation dose: Total exam DLP = 1118.49 mGy-cm. This CT exam was performed using one or more of the following dose reduction techniques: Automated exposure control, adjustment of the mA and/or kV according to patient size, and/or use of iterative reconstruction technique. FINDINGS: LOWER THORAX: Unremarkable. LIVER: Unremarkable. No gross lesion or ductal dilatation. GALLBLADDER AND BILE DUCTS: Status post cholecystectomy PANCREAS: Unremarkable. No gross lesion or ductal dilatation. SPLEEN: Unremarkable. ADRENALS: Unremarkable. No mass. KIDNEYS AND URETERS: Right upper pole cortical cyst, 2.8 centimeters. Right lower pole cortical cyst, 1.6 centimeters. No renal calculus. No hydronephrosis. VASCULATURE: Unremarkable. No aortic aneurysm. BOWEL: Multiple bowel anastomoses are noted involving both large and small bowel. There is no evidence of bowel obstruction. APPENDIX: Normal appendix. PERITONEUM: Minimal fluid and edema within the mesentery of the small bowel. There is a fluid collection along the anterior abdominal wall posterior to the rectus sheath, measuring roughly 2.4 by 17.9 x 22.9 centimeters. This may be in communication with a small para umbilical fluid collection measuring 2.5 x 4.6 by 2.3 centimeters, containing a very small amount of gas. There is no gas seen within the larger fluid collection along the anterior abdominal wall. Postoperative hematoma/ seroma versus abscess. LYMPH NODES: Unremarkable. No enlarged lymph nodes. BLADDER: Unremarkable. REPRODUCTIVE: Normal prostate BONES: No acute fracture. OTHER FINDINGS: None. IMPRESSION: Large fluid collection along the anterior abdominal wall posterior to the rectus sheath. Small paraumbilical fluid collection possibly in communication with the larger collection. Multiple large and small bowel anastomoses. Additional minor findings as above.
[2017-06-21] MEDS ORDERED: Benzocaine/Menthol (Cepacol) Lozenge MT PRN (11:21)
--- NOTE | 2017-06-21 11:21 | CP.PCM.HP ---
History of Present Illness - History of Present Illness History of Present Illness: Pt is a 51 y/o male who is POD#8 s/p ventral hernia repair. He presents to the ED with a 2 day history of nausea and self induced vomiting which he has found relieves his abdominal discomfort. His last episode was last night. These episodes began after he reintroduced solid food into his diet on Tuesday following an incisional hernia at [facility] on 06/13/17. He also complains of a dry cough. He is moving his bowels and has flatus. He denies chest pain, hematemesis, hematochezia, melena, constipation, diarrhea, abdominal pain. PMH: HTN, diverticulitis, hypothyroidism, anxiety, kidney stones, CKD Surg Hx:Incisional hernia 06/13/17 at [facility], right hydrocelectomy in February 2017 at [facility], partial colectomy for diverticulitis in May 2015, cholecyctectomy Home Meds: Telmisartan/Hydrochlorothiazide 1 tab daily PO Social Hx: Denies use of tobacco, alcohol, drugs (indicated prior use of tobacco with cessation earlier this year) FMH: Denies Allgeries: NKDA, shellfish (produces rash) Present on Admission - Present on Admission Any Indicators Present on Admission: No Review of Systems - Review of Systems All systems: reviewed and no additional remarkable complaints except - Constitutional Constitutional: absent: Anorexia, Chills, Fever - Cardiovascular Cardiovascular: absent: Chest Pain, Dyspnea - Respiratory Respiratory: Cough - Gastrointestinal Gastrointestinal: Abdominal Pain, Bloating, Nausea Past Patient History - Infectious Disease Hx of Infectious Diseases: None - Past Medical History & Family History Past Medical History?: Yes - Past Social History Smoking Status: Never Smoked - CARDIAC Hx Hypertension: Yes - PULMONARY Hx Respiratory Disorders: No - NEUROLOGICAL Hx Neurological Disorder: No - HEENT Hx HEENT Problems: No - RENAL Hx Chronic Kidney Disease: Yes Hx Kidney Stones: Yes (PASSED ON OWN) - ENDOCRINE/METABOLIC Hx Hypothyroidism: Yes (no longer needs meds) - HEMATOLOGICAL/ONCOLOGICAL Hx Blood Disorders: No - INTEGUMENTARY Hx Dermatological Problems: No - MUSCULOSKELETAL/RHEUMATOLOGICAL Other/Comment: HX:plantar fasciitis-(RIGHT)NO LONGER A PROBLEM(06/06/17) - GASTROINTESTINAL Hx Diverticulitis: Yes Hx Gall Bladder Disease: Yes - GENITOURINARY/GYNECOLOGICAL Hx Genitourinary Disorders: Yes Other/Comment: hydrocelectomy - PSYCHIATRIC Hx Anxiety: Yes Hx Substance Use: No - SURGICAL HISTORY Hx Cholecystectomy: Yes - ANESTHESIA Hx Anesthesia: Yes Hx Anesthesia Reactions: No Hx Malignant Hyperthermia: No Meds Allergies/Adverse Reactions: Allergies Allergy/AdvReac Type Severity Reaction Status Date / Time No Known Allergies Allergy Verified 06/06/17 09:10 Physical Exam - Constitutional Appears: Non-toxic, No Acute Distress - Head Exam Head Exam: ATRAUMATIC, NORMOCEPHALIC - Eye Exam Eye Exam: EOMI - ENT Exam ENT Exam: Mucous Membranes Moist - Respiratory Exam Respiratory Exam: NORMAL BREATHING PATTERN - Cardiovascular Exam Cardiovascular Exam: +S1, +S2 - GI/Abdominal Exam GI & Abdominal Exam: Normal Bowel Sounds, Soft. absent: Distended, Guarding, Hernia, Rigid, Tenderness Additional comments: Protuberant abdomen, with incision well approximated non tender non erythematous non draining with aneudy in place. - Neurological Exam Neurological exam: Alert, Oriented x3 - Skin Skin Exam: Dry, Intact Results - Vital Signs Recent Vital Signs: Last Vital Signs Temp 98.3 F 06/21/17 06:42 Pulse 81 06/21/17 06:42 Resp 18 06/21/17 06:42 BP 132/88 06/21/17 06:42 Pulse Ox 96 06/21/17 09:27 - Labs Result Diagrams: 06/21/17 07:42 06/21/17 07:42 Labs: Laboratory Results - last 24 hr 06/21/17 06/21/17 07:42 07:42 WBC 7.9 RBC 4.64 Hgb 14.5 D Hct 41.6 MCV 89.6 MCH 31.2 H MCHC 34.8 RDW 13.5 Plt Count 396 D MPV 8.2 Neut % (Auto) 69.7 Lymph % (Auto) 18.2 L [place] % (Auto) 7.7 Eos % (Auto) 3.8 Baso % (Auto) 0.6 Neut # (Auto) 5.5 Lymph # (Auto) 1.4 [place] # (Auto) 0.6 Eos # (Auto) 0.3 Baso # (Auto) 0.0 Sodium 140 Potassium 4.4 Chloride 99 Carbon Dioxide 28 Anion Gap 17 BUN 23 H Creatinine 1.0 Est GFR ( Amer) > 60 Est GFR (Non-Af Amer) > 60 Random Glucose 114 H Calcium 8.6 Total Bilirubin 0.7 AST 32 ALT 46 Alkaline Phosphatase 87 Total Protein 7.4 Albumin 3.7 Globulin 3.7 Albumin/Globulin Ratio 1.0 Lipase 514 H Assessment & Plan - Assessment and Plan (Free Text) Assessment: 51M POD#8 S/P ventral hernia repair with mesh CT showes elva mesh fluid collection zofran for nausea Tylenol / motrin for pain OOB SCD Regular diet 23 hour obsv D/W Dr. Ivonne Aragon PGY2
[2017-06-21 13:55] VITALS: RESP 20
[2017-06-21] MEDS: Dextrose 5%/0.45% NS 1,000 ML IV SCH (15:15)
[2017-06-21] MEDS ORDERED: Lactated Ringer's 1,000 ML IV SCH (15:30)
[2017-06-22] MEDS: Dextrose 5%/0.45% NS 1,000 ML IV SCH ×3 (01:40→21:00)
[2017-06-22 08:13] LABS: AMYLASE 69 U/L (30-110); LIPASE 516 U/L (23-300)
[2017-06-22] MEDS ORDERED: Pneumococcal 23-Valent Vaccine IM ONE (10:00)
--- NOTE | 2017-06-22 13:10 | CP.PCM.PN ---
Subjective - Date & Time of Evaluation Date of Evaluation: 06/22/17 Time of Evaluation: 09:00 - Subjective Subjective: Surgery: Dr. Coronado Patient reports feelings very well however did have one episode of emesis last night. He reports flatus. Denies abdominal pain or nausea. Objective - Vital Signs/Intake and Output Vital Signs (last 24 hours): Temp Pulse Resp BP Pulse Ox 98.2 F 59 L 20 112/60 97 06/22/17 07:49 06/22/17 07:49 06/22/17 07:49 06/22/17 07:49 06/22/17 07:49 - Medications Medications: Current Medications Acetaminophen (Tylenol 325mg Tab) 650 mg PO Q6 PRN PRN Reason: Pain, Mild (1-3) Benzocaine/Menthol (Cepacol Sore Throat) 1 jonathan MT Q2 PRN PRN Reason: Sore Throat Famotidine (Pepcid) 20 mg PO DAILY [facility] Last Admin: 06/22/17 11:03 Dose: 20 mg Dextrose/Sodium Chloride (Dextrose 5%/0.45% Ns 1000 Ml) 1,000 mls @ 100 mls/hr IV .Q10H [facility] Last Admin: 06/22/17 11:06 Dose: Not Given Ibuprofen (Motrin Tab) 600 mg PO Q6 PRN PRN Reason: Pain, moderate (4-7) Ondansetron HCl (Zofran Odt) 4 mg PO Q4 PRN PRN Reason: Nausea/Vomiting Last Admin: 06/22/17 00:02 Dose: 4 mg - Labs Labs: 06/21/17 07:42 06/21/17 07:42 - Constitutional Appears: Non-toxic, No Acute Distress - Head Exam Head Exam: ATRAUMATIC, NORMOCEPHALIC - Eye Exam Eye Exam: EOMI, Normal appearance - ENT Exam ENT Exam: Mucous Membranes Moist - Respiratory Exam Respiratory Exam: NORMAL BREATHING PATTERN. absent: Respiratory Distress - Cardiovascular Exam Cardiovascular Exam: REGULAR RHYTHM. absent: Tachycardia - GI/Abdominal Exam GI & Abdominal Exam: Soft. absent: Distended, Guarding, Tenderness, Rebound - Neurological Exam Neurological Exam: Alert, Awake - Psychiatric Exam Psychiatric exam: Normal Affect, Normal Mood Assessment and Plan - Assessment and Plan (Free Text) Assessment: 51 y/o male s/p VHR POD9 w/ vomiting Plan: -emesis less -will add reflux medication -trial of liquid diet -encourage ambulation -will monitor -further recs per Dr. Ivonne Ojeda PGY3
[2017-06-23] MEDS: Dextrose 5%/0.45% NS 1,000 ML IV SCH (03:41)
[2017-06-23 07:46] VITALS: BP 118/81; PULSE 60; TEMP 98.1; O2SAT 96
--- NOTE | 2017-06-23 09:46 | CP.PCM.DIS ---
Provider - Provider Date of Admission: 06/22/17 13:36 Attending physician: Crow Coronado Jr, MD Time Spent in preparation of Discharge (in minutes): 35 Diagnosis - Discharge Diagnosis (1) Nausea Status: Resolved (2) Vomiting Status: Acute Hospital Course - Lab Results Lab Results: Most Recent Lab Values WBC 7.9 K/uL (4.8-10.8) 06/21/17 07:42 RBC 4.64 Mil/uL (4.40-5.90) 06/21/17 07:42 Hgb 14.5 g/dL (12.0-18.0) D 06/21/17 07:42 Hct 41.6 % (35.0-51.0) 06/21/17 07:42 MCV 89.6 fL (80.0-94.0) 06/21/17 07:42 MCH 31.2 pg (27.0-31.0) H 06/21/17 07:42 MCHC 34.8 g/dL (33.0-37.0) 06/21/17 07:42 RDW 13.5 % (11.5-14.5) 06/21/17 07:42 Plt Count 396 K/uL (130-400) D 06/21/17 07:42 MPV 8.2 fL (7.2-11.7) 06/21/17 07:42 Neut % (Auto) 69.7 % (50.0-75.0) 06/21/17 07:42 Lymph % (Auto) 18.2 % (20.0-40.0) L 06/21/17 07:42 [place] % (Auto) 7.7 % (0.0-10.0) 06/21/17 07:42 Eos % (Auto) 3.8 % (0.0-4.0) 06/21/17 07:42 Baso % (Auto) 0.6 % (0.0-2.0) 06/21/17 07:42 Neut # (Auto) 5.5 K/uL (1.8-7.0) 06/21/17 07:42 Lymph # (Auto) 1.4 K/uL (1.0-4.3) 06/21/17 07:42 [place] # (Auto) 0.6 K/uL (0.0-0.8) 06/21/17 07:42 Eos # (Auto) 0.3 K/uL (0.0-0.7) 06/21/17 07:42 Baso # (Auto) 0.0 K/uL (0.0-0.2) 06/21/17 07:42 Sodium 140 mmol/L (132-148) 06/21/17 07:42 Potassium 4.4 mmol/L (3.6-5.2) 06/21/17 07:42 Chloride 99 mmol/L (98-107) 06/21/17 07:42 Carbon Dioxide 28 mmol/L (22-30) 06/21/17 07:42 Anion Gap 17 (10-20) 06/21/17 07:42 BUN 23 mg/dL (9-20) H 06/21/17 07:42 Creatinine 1.0 mg/dL (0.8-1.5) 06/21/17 07:42 Est GFR ( Amer) > 60 06/21/17 07:42 Est GFR (Non-Af Amer) > 60 06/21/17 07:42 Random Glucose 114 mg/dL (75-110) H 06/21/17 07:42 Calcium 8.6 mg/dl (8.6-10.4) 06/21/17 07:42 Total Bilirubin 0.7 mg/dL (0.2-1.3) 06/21/17 07:42 AST 32 U/L (17-59) 06/21/17 07:42 ALT 46 U/L (21-72) 06/21/17 07:42 Alkaline Phosphatase 87 U/L (38-126) 06/21/17 07:42 Total Protein 7.4 g/dL (6.3-8.3) 06/21/17 07:42 Albumin 3.7 g/dL (3.5-5.0) 06/21/17 07:42 Globulin 3.7 gm/dL (2.2-3.9) 06/21/17 07:42 Albumin/Globulin Ratio 1.0 (1.0-2.1) 06/21/17 07:42 Amylase 69 U/L (30-110) 06/22/17 07:43 Lipase 516 U/L (23-300) H 06/22/17 07:43 - Hospital Course Hospital Course: This 51M presented on POD8 a day after he was discharged due to nausea and vomiting. He was admitted for nausea that improved with self induced emesis. He was admitted made npo with IVF. His diet was gradually advanced. He is now tolerating diet and ambulating and no longer needs inpatient care. Discharge Exam - Head Exam Head Exam: ATRAUMATIC, NORMOCEPHALIC - Eye Exam Eye Exam: EOMI, Normal appearance - Respiratory Exam Respiratory Exam: NORMAL BREATHING PATTERN - Cardiovascular Exam Cardiovascular Exam: +S1, +S2 - GI/Abdominal Exam Additional comments: Meghna in place incision well approximated none tender non erythematous non draining - Neurological Exam Neurological exam: Alert, Oriented x3 - Psychiatric Exam Psychiatric exam: Normal Affect, Normal Mood - Skin Skin Exam: Dry, Intact Discharge Plan - Discharge Medications Prescriptions: Famotidine [Pepcid] 20 mg PO DAILY #30 tab - Follow Up Plan Condition: GOOD Disposition: HOME/ ROUTINE Patient education suggested?: Yes Instructions: Nausea and Vomiting, Adult (DC), Famotidine Referrals: Crow Coronado Jr., MD [Staff Provider] -
== END 2017-06-23 12:50 | disposition home or self-care (01) | DRG 392 ==
LOC: C.ER 06:28 → C.9E 11:17 → C.3T 13:12 → OBSVTOIN 06-22 13:36
PROVIDERS: ADMIT Surgery Vascular Surgery; ATTEND Surgery Vascular Surgery
DX: R11.2 Nausea with vomiting, unspecified (principal); I12.9 Hypertensive chronic kidney disease with stage 1 through stage 4 chronic kidney disease, or unspecified chronic kidney disease; N18.9 Chronic kidney disease, unspecified; Z90.49 Acquired absence of other specified parts of digestive tract; F41.9 Anxiety disorder, unspecified; Z98.890 Other specified postprocedural states

== ENCOUNTER 2017-07-05 15:03 | Inpatient (IN) | payer BC ==
[2017-07-05 15:04] VITALS: BMI 32.5
--- NOTE | 2017-07-05 15:13 | C.PDOC ---
History Of Present Illness WORSENING ABD PAIN, SUBJ FEVER SINCE 06/13 1) Incisional Hernia repair with mesh. 2) Extensive lysis of dense adhesions. 3) Repair of enterotomy & SB resection with anastomosis x [address] MATOS. S/P OUTPT CT 07/05 +INTRAABD ABSCESS. CO PAIN TO SITE, GEN ABD BLOATING/DISTENTION, NV. NO PRIOR ABX SINCE SURGERY. EXAM MILD DIST NONTOXIC HEENT ANICTERIC ABD DISTENDED DIFF TEND ALONG INCISION SITE. SKIN HEALING POST OP WOUND MID ABD NO CELLULITIS, DC REMAINDER NEG Time Seen by Provider: 07/05/17 15:11 History Per: Patient History/Exam Limitations: no limitations Current Symptoms Are (Timing): Still Present Location Of Pain/Discomfort: Diffuse Associated Symptoms: Nausea, Vomiting Past Medical History Reviewed: Historical Data, Nursing Documentation, Vital Signs Vital Signs: Last Vital Signs Temp 99.5 F 07/05/17 15:06 Pulse 85 07/05/17 15:06 Resp 16 07/05/17 15:06 BP 112/77 07/05/17 15:06 Pulse Ox 99 07/05/17 15:41 - Medical History PMH: Anxiety, Diverticulitis, Gall Bladder Disease, HTN, Hypothyroidism (no longer needs meds), Kidney Stones (PASSED ON OWN), Chronic Kidney Disease Surgical History: Cholecystectomy, Endoscopy - [facility] Procedures LG BOWEL STOMA CLOSURE (12/18/12) OTH LYSIS-PERITONEAL ADHES (12/06/13) OTHER OPEN INCISIONAL HERNIA REPAIR WITH GRAFT OR PROSTHESIS (12/06/13) RELEASE SMALL INTESTINE, OPEN APPROACH (06/13/17) REPAIR OF INTESTINE NEC (12/06/13) RESECTION OF SMALL INTESTINE, OPEN APPROACH (06/13/17) SUPPLEMENT ABDOMINAL WALL WITH SYNTH SUB, OPEN APPROACH (06/13/17) Family History: States: No Known Family Hx - Social History Hx Alcohol Use: No Hx Substance Use: No Review Of Systems Except As Marked, All Systems Reviewed And Found Negative. Constitutional: Negative for: Fever, Chills Cardiovascular: Negative for: Chest Pain Respiratory: Negative for: Shortness of Breath Gastrointestinal: Positive for: Nausea, Vomiting, Abdominal Pain Musculoskeletal: Negative for: Back Pain Skin: Negative for: Rash Physical Exam - Physical Exam Appears: Non-toxic, In Acute Distress (mild) Skin: Warm, Dry, No Jaundice, Other (healing post-op wound to mid abdomen, no cellulitis) Head: Atraumatic, Normacephalic Eye(s): bilateral: Normal Inspection Oral Mucosa: Moist Neck: Normal ROM, Supple Chest: Symmetrical Cardiovascular: Rhythm Regular Respiratory: Normal Breath Sounds, No Rales, No Rhonchi, No Wheezing Gastrointestinal/Abdominal: Tenderness (diffuse tenderness along incision site) , Distention Back: Normal Inspection Extremity: Normal ROM, No Pedal Edema Neurological/Psych: Oriented x3 ED Course And Treatment - Laboratory Results Result Diagrams: 07/05/17 15:39 07/05/17 15:39 ECG: Interpreted By Me ECG Rhythm: Sinus Rhythm ECG Interpretation: Normal Rate From EC O2 Sat by Pulse Oximetry: 99 (RA) Pulse Ox Interpretation: Normal - Physician Consult Information Time Consulting Physician Contacted: 15:15 Physician Contacted: Crow Matos Jr. Outcome Of Conversation: WILL ADMIT Disposition Counseled Patient/Family Regarding: Studies Performed, Diagnosis, Need For Followup - Disposition Disposition: HOSPITALIZED Disposition Time: 15:15 Condition: STABLE - POA Present On Arrival: None - Clinical Impression Clinical Impression: Intra-abdominal abscess - Scribe Statement The provider has reviewed the documentation as recorded by the Scribe (Zina Clark) Provider Attestation: All medical record entries made by the Scribe were at my direction and personally dictated by me. I have reviewed the chart and agree that the record accurately reflects my personal performance of the history, physical exam, medical decision making, and the department course for this patient. I have also personally directed, reviewed, and agree with the discharge instructions and disposition.
[2017-07-05] MEDS ORDERED: Sodium Chloride 0.9% 1,000 ML IV ONE (15:30)
[2017-07-05] MEDS ORDERED: Piperacillin/Tazobact 3.375 gm 100 ML IVPB ONE (15:41)
[2017-07-05 15:43] LABS: BASO % 0.6 % (0.0-2.0); EOS # 0.1 K/uL (0.0-0.7); EOS % 1.2 % (0.0-4.0); LYMPH # 0.8 K/uL (1.0-4.3); LYMPH % 10.8 % (20.0-40.0); MEAN CELL VOLUME 88.3 fL (80.0-94.0); MEAN CORPUSCULAR HEMOGLOBIN 30.6 pg (27.0-31.0); MEAN CORPUSCULAR HGB CONC 34.7 g/dL (33.0-37.0); MEAN PLATELET VOLUME 8.1 fL (7.2-11.7); MONO # 0.6 K/uL (0.0-0.8); MONO % 8.3 % (0.0-10.0); NEUT % 79.1 % (50.0-75.0); NRBC % 0.1 % (0.0-2.0); RBC 3.87 Mil/uL (4.40-5.90); RED CELL DISTRIBUTION WIDTH 13.7 % (11.5-14.5); WHITE BLOOD COUNT 7.6 K/uL (4.8-10.8)
[2017-07-05 15:47] LABS: HEMOGLOBIN 11.8 g/dL (12.0-18.0)
--- NOTE | 2017-07-05 15:48 | RAD ---
PROCEDURE: CHEST RADIOGRAPH, 1 VIEW HISTORY: MED CLEAR COMPARISON: None available. FINDINGS: LUNGS: The lungs are well inflated and clear. PLEURA: No pneumothorax or pleural fluid seen. CARDIOVASCULAR: Normal. OSSEOUS STRUCTURES: No significant abnormalities. VISUALIZED UPPER ABDOMEN: Normal. OTHER FINDINGS: None. IMPRESSION: No active pulmonary disease.
[2017-07-05 15:54] LABS: INR 1.5; PROTHROMBIN TIME 16.1 SECONDS (9.7-12.2)
[2017-07-05 15:57] LABS: ALBUMIN 3.7 g/dL (3.5-5.0); ALT/SGPT 32 U/L (21-72); AST/SGOT 31 U/L (17-59); BLOOD UREA NITROGEN 12 mg/dL (9-20); CALCIUM 8.4 mg/dl (8.6-10.4); GFR AFRICAN-AMERICAN > 60; GFR NON-AFRICAN AMERICAN > 60
[2017-07-05] MEDS ORDERED: Vancomycin 1 gm/NS 200 ml 1 GM/200 ML BAG IVPB ONE (16:00)
--- NOTE | 2017-07-05 16:43 | CP.PCM.HP ---
History of Present Illness - History of Present Illness History of Present Illness: Surgery H&P- Dr. Coronado 51M s/p Ventral hernia repair was seen in clinic today and presents to the ED with multiple subjective fevers, periumbilical abdominal pain, nausea. Workup shows intra-abdominal abscess on CT scan. He has been unable to eat solid foods. Patient was initially admitted for incisional hernia repair on 06/13/17. Denies current: vomiting, diarrhea, chest pain, shortness of breath PMH: HTN, diverticulitis, hypothyroidism, anxiety, kidney stones, CKD Surg Hx:Incisional hernia 06/13/17 at [facility], right hydrocelectomy in February 2017 at [facility], partial colectomy for diverticulitis in May 2015, cholecyctectomy Home Meds: Telmisartan/Hydrochlorothiazide 1 tab daily PO Social Hx: Denies use of tobacco, alcohol, drugs (indicated prior use of tobacco with cessation earlier this year) FMH: Denies Allgeries: NKDA, shellfish (produces rash) 14pt review of systems negative except those mentioned above Present on Admission - Present on Admission Any Indicators Present on Admission: No Review of Systems - Review of Systems All systems: reviewed and no additional remarkable complaints except - Constitutional Constitutional: As Per HPI Past Patient History - Infectious Disease Hx of Infectious Diseases: None - Past Medical History & Family History Past Medical History?: Yes - Past Social History Smoking Status: Former Smoker - CARDIAC Hx Hypertension: Yes - PULMONARY Hx Respiratory Disorders: No - NEUROLOGICAL Hx Neurological Disorder: No - HEENT Hx HEENT Problems: No - RENAL Hx Chronic Kidney Disease: Yes Hx Kidney Stones: Yes (PASSED ON OWN) - ENDOCRINE/METABOLIC Hx Hypothyroidism: Yes (no longer needs meds) - HEMATOLOGICAL/ONCOLOGICAL Hx Blood Disorders: No - INTEGUMENTARY Hx Dermatological Problems: No - MUSCULOSKELETAL/RHEUMATOLOGICAL Hx Falls: No - GASTROINTESTINAL Hx Diverticulitis: Yes Hx Gall Bladder Disease: Yes - GENITOURINARY/GYNECOLOGICAL Hx Genitourinary Disorders: Yes Other/Comment: hydrocelectomy - PSYCHIATRIC Hx Anxiety: Yes Hx Substance Use: No - SURGICAL HISTORY Hx Cholecystectomy: Yes - ANESTHESIA Hx Anesthesia: Yes Hx Anesthesia Reactions: No Hx Malignant Hyperthermia: No Meds Allergies/Adverse Reactions: Allergies Allergy/AdvReac Type Severity Reaction Status Date / Time No Known Allergies Allergy Verified 06/21/17 11:59 Physical Exam - Constitutional Appears: Non-toxic, No Acute Distress - Head Exam Head Exam: ATRAUMATIC - Eye Exam Eye Exam: EOMI. absent: Scleral icterus - ENT Exam ENT Exam: Mucous Membranes Moist - Respiratory Exam Respiratory Exam: NORMAL BREATHING PATTERN. absent: Accessory Muscle Use, Respiratory Distress - Cardiovascular Exam Cardiovascular Exam: +S1, +S2. absent: Bradycardia, Tachycardia - GI/Abdominal Exam GI & Abdominal Exam: Distended, Guarding (voluntary guarding), Soft. absent: Firm, Hernia Additional comments: abd distended midline incision well healed abd elva-umbilical mild-discoloration - Extremities Exam Extremities exam: Positive for: normal inspection. Negative for: calf tenderness - Neurological Exam Neurological exam: Alert, Oriented x3 - Skin Skin Exam: Intact, Warm Results - Vital Signs Recent Vital Signs: Last Vital Signs Temp 99.5 F 07/05/17 15:06 Pulse 85 07/05/17 15:06 Resp 16 07/05/17 15:06 BP 112/77 07/05/17 15:06 Pulse Ox 99 07/05/17 15:41 - Labs Result Diagrams: 07/05/17 15:39 07/05/17 15:39 Labs: Laboratory Results - last 24 hr 07/05/17 07/05/17 07/05/17 15:39 15:39 15:39 WBC 7.6 RBC 3.87 L Hgb 11.8 L D Hct 34.2 L MCV 88.3 MCH 30.6 MCHC 34.7 RDW 13.7 Plt Count 269 D MPV 8.1 Neut % (Auto) 79.1 H Lymph % (Auto) 10.8 L [place] % (Auto) 8.3 Eos % (Auto) 1.2 Baso % (Auto) 0.6 Neut # (Auto) 6.0 Lymph # (Auto) 0.8 L [place] # (Auto) 0.6 Eos # (Auto) 0.1 Baso # (Auto) 0.0 PT 16.1 H INR 1.5 APTT 29 Sodium 133 Potassium 4.1 Chloride 98 Carbon Dioxide 26 Anion Gap 14 BUN 12 Creatinine 1.0 Est GFR ( Amer) > 60 Est GFR (Non-Af Amer) > 60 Random Glucose 106 Calcium 8.4 L Total Bilirubin 1.2 AST 31 ALT 32 Alkaline Phosphatase 160 H D Total Protein 7.7 Albumin 3.7 Globulin 3.9 Albumin/Globulin Ratio 1.0 Assessment & Plan - Assessment and Plan (Free Text) Assessment: 51M s/p ventral hernia repair with mesh on 06/13/17; w/ intra-abdominal abscess vs fluid collection Plan: - IVAbx - IVF - NPO @ [facility] - plan for OR tomorrow AM - pain control & anti-emetic PRN - strict I/O - d/w Dr. Coronado surgical attending PGY1
[2017-07-05 17:44] LABS: SQUAMOUS EPITHIAL < 1 /hpf (0-5); URINE BILIRUBIN NEGATIVE (NEGATIVE); URINE BLOOD NEGATIVE (NEGATIVE); URINE CLARITY Clear (Clear); URINE COLOR Amber (YELLOW); URINE GLUCOSE (UA) NORMAL (Normal); URINE LEUKOCYTE ESTERASE NEG Leu/uL (Negative); URINE PROTEIN 1+ mg/dL (NEGATIVE)
[2017-07-05] MEDS ORDERED: HYDROmorphone 1 mg/ml ISec IVP STA (17:49)
[2017-07-05] MEDS ORDERED: Piperacillin/Tazobact 3.375 GM in Sodium Chloride 0.9% 100 ML IVPB ONE (18:00)
[2017-07-05] MEDS: HYDROmorphone 0.5 mg/0.5 ml ISec IVP PRN ×2 (19:22→23:44)
[2017-07-06] MEDS ORDERED: Piperacill/Tazo 3.375gm in Dex 3.375 GM/50 ML BAG IVPB SCH
[2017-07-06] MEDS: Piperacillin/Tazobact 3.375 GM in Sodium Chloride 0.9% 100 ML IVPB SCH ×4 (00:11→19:27)
[2017-07-06] MEDS: HYDROmorphone 0.5 mg/0.5 ml ISec IVP PRN ×8 (03:43→20:00)
[2017-07-06] MEDS: Vancomycin 1 gm/NS 200 ml 1 GM/200 ML BAG IVPB SCH ×2 (03:44→16:59)
[2017-07-06 08:00] LABS: BASO % 0.5 % (0.0-2.0); EOS # 0.3 K/uL (0.0-0.7); EOS % 4.9 % (0.0-4.0); HEMOGLOBIN 10.7 g/dL (12.0-18.0); LYMPH # 0.9 K/uL (1.0-4.3); LYMPH % 15.4 % (20.0-40.0); MEAN CELL VOLUME 88.5 fL (80.0-94.0); MEAN CORPUSCULAR HEMOGLOBIN 30.6 pg (27.0-31.0); MEAN CORPUSCULAR HGB CONC 34.6 g/dL (33.0-37.0); MEAN PLATELET VOLUME 7.8 fL (7.2-11.7); MONO # 0.5 K/uL (0.0-0.8); MONO % 9.2 % (0.0-10.0); NEUT # 4.1 K/uL (1.8-7.0); NRBC % 0.1 % (0.0-2.0); RBC 3.51 Mil/uL (4.40-5.90); RED CELL DISTRIBUTION WIDTH 13.8 % (11.5-14.5); WHITE BLOOD COUNT 5.9 K/uL (4.8-10.8)
[2017-07-06 08:13] LABS: ALB/GLOB RATIO 0.8 (1.0-2.1); ALBUMIN 2.8 g/dL (3.5-5.0); ALT/SGPT 36 U/L (21-72); AST/SGOT 22 U/L (17-59); BLOOD UREA NITROGEN 14 mg/dL (9-20); CALCIUM 8.3 mg/dl (8.6-10.4); GFR AFRICAN-AMERICAN > 60; GFR NON-AFRICAN AMERICAN > 60
--- NOTE | 2017-07-06 08:43 | CP.PCM.CON ---
History of Present Illness - History of Present Illness History of Present Illness: CC: Fever Patient had surgery on 05/2017. He felt feverish 2nf d day post operatively and went to ER on . A cT showed ? seroma or abscess. Patient h noted pain and continued to have feverish feeling. He had repeat CT and noted increase in size. Patient readmiitted. Review of Systems - Review of Systems Systems not reviewed;Unavailable: Acuity of Condition - Constitutional Constitutional: absent: Headache, Night Sweats, Sleep Apnea - EENT Eyes: absent: Change in Vision, Irritation, Sees Flashes Nose/Mouth/Throat: absent: Nasal Congestion, Bleeding Gums, Dysphagia, Hoarsness - Cardiovascular Cardiovascular: absent: Chest Pain, Diaphoresis, Leg Edema, Leg Ulcers, Palpitations - Respiratory Respiratory: absent: Cough, Pain on Inspiration, Chest Congestion, Excessive Mucous Production - Gastrointestinal Gastrointestinal: Abdominal Pain. absent: Diarrhea, Excessive Flatus, Hematochezia, Melena, Nausea, Vomiting - Musculoskeletal Musculoskeletal: absent: Abnormal Gait, Limited Range of Motion, Myalgias Past Patient History - Infectious Disease Hx of Infectious Diseases: None - Past Medical History & Family History Past Medical History?: Yes - Past Social History Smoking Status: Former Smoker - CARDIAC Hx Hypertension: Yes - PULMONARY Hx Respiratory Disorders: No - NEUROLOGICAL Hx Neurological Disorder: No - HEENT Hx HEENT Problems: No - RENAL Hx Chronic Kidney Disease: Yes Hx Kidney Stones: Yes (PASSED ON OWN) - ENDOCRINE/METABOLIC Hx Hypothyroidism: Yes (no longer needs meds) - HEMATOLOGICAL/ONCOLOGICAL Hx Blood Disorders: No - INTEGUMENTARY Hx Dermatological Problems: No - MUSCULOSKELETAL/RHEUMATOLOGICAL Hx Falls: No - GASTROINTESTINAL Hx Diverticulitis: Yes Hx Gall Bladder Disease: Yes - GENITOURINARY/GYNECOLOGICAL Hx Genitourinary Disorders: Yes Other/Comment: hydrocelectomy - PSYCHIATRIC Hx Substance Use: No - SURGICAL HISTORY Hx Cholecystectomy: Yes Other/Comment: incisional hernia repair,lysis of dense adhesions,repair of enterotomy SB resection w/ anastomosis x2 - ANESTHESIA Hx Anesthesia: Yes Hx Anesthesia Reactions: No Hx Malignant Hyperthermia: No Meds Allergies/Adverse Reactions: Allergies Allergy/AdvReac Type Severity Reaction Status Date / Time No Known Allergies Allergy Verified 06/21/17 11:59 - Medications Medications: Current Medications Acetaminophen (Tylenol 325mg Tab) 650 mg PO Q6 PRN PRN Reason: Fever >100.4 F Heparin Sodium (Porcine) (Heparin) 5,000 units SC Q8 [facility] Last Admin: 07/06/17 06:00 Dose: Not Given Hydrochlorothiazide (Microzide) 12.5 mg PO DAILY [facility] Hydromorphone HCl (Dilaudid) 0.5 mg IVP Q4H PRN PRN Reason: Pain, moderate (4-7) Last Admin: 07/06/17 07:56 Dose: 0.5 mg Vancomycin/Sodium Chloride (Vancomycin 1 Gm/Ns 200 Ml) 1 gm in 200 mls @ 133 mls/hr IVPB Q12H JUJU PRN Reason: Protocol Stop: 07/11/17 04:01 Last Admin: 07/06/17 03:44 Dose: 133 mls/hr Piperacillin Sod/Tazobactam (Sod 3.375 gm/ Sodium Chloride) 100 mls @ 100 mls/ hr IVPB Q6H JUJU PRN Reason: Protocol Last Admin: 07/06/17 05:39 Dose: 100 mls/hr Losartan Potassium (Cozaar) 100 mg PO DAILY [facility] Ondansetron HCl (Zofran Inj) 4 mg IVP Q6 PRN PRN Reason: Nausea/Vomiting Pneumococcal Polyvalent Vaccine (Pneumovax 23 Vaccine) 0.5 ml IM .ONCE ONE Stop: 07/06/17 10:01 Physical Exam - Constitutional Appears: Well - Eye Exam Eye Exam: absent: Normal appearance - ENT Exam ENT Exam: absent: Mucous Membranes Moist - Neck Exam Neck exam: Positive for: Full Rom. Negative for: Lymphadenopathy, Normal Inspection - Respiratory Exam Respiratory Exam: Decreased Breath Sounds, Clear to Auscultation Bilateral. absent: Rales, Rhonchi, Wheezes - Cardiovascular Exam Cardiovascular Exam: Gallop, REGULAR RHYTHM, +S1, +S2, Systolic Murmur. absent : Diastolic murmur, JVD - GI/Abdominal Exam GI & Abdominal Exam: Soft. absent: Mass - Extremities Exam Extremities exam: Positive for: full ROM, normal capillary refill. Negative for : calf tenderness, joint swelling, pedal edema Results - Vital Signs Recent Vital Signs: Last Vital Signs Temp 99.5 F 07/05/17 23:09 Pulse 75 07/05/17 23:09 Resp 20 07/05/17 23:09 BP 109/71 07/05/17 23:09 Pulse Ox 97 07/05/17 23:09 - Labs Result Diagrams: 07/06/17 07:49 07/06/17 07:49 Labs: Laboratory Results - last 24 hr 07/05/17 07/05/17 07/05/17 15:39 15:39 15:39 WBC 7.6 RBC 3.87 L Hgb 11.8 L D Hct 34.2 L MCV 88.3 MCH 30.6 MCHC 34.7 RDW 13.7 Plt Count 269 D MPV 8.1 Neut % (Auto) 79.1 H Lymph % (Auto) 10.8 L [place] % (Auto) 8.3 Eos % (Auto) 1.2 Baso % (Auto) 0.6 Neut # (Auto) 6.0 Lymph # (Auto) 0.8 L [place] # (Auto) 0.6 Eos # (Auto) 0.1 Baso # (Auto) 0.0 PT 16.1 H INR 1.5 APTT 29 Sodium 133 Potassium 4.1 Chloride 98 Carbon Dioxide 26 Anion Gap 14 BUN 12 Creatinine 1.0 Est GFR ( Amer) > 60 Est GFR (Non-Af Amer) > 60 Random Glucose 106 Calcium 8.4 L Total Bilirubin 1.2 AST 31 ALT 32 Alkaline Phosphatase 160 H D Total Protein 7.7 Albumin 3.7 Globulin 3.9 Albumin/Globulin Ratio 1.0 Urine Color Urine Clarity Urine pH Ur Specific [place] Urine Protein Urine Glucose (UA) Urine Ketones Urine Blood Urine Nitrate Urine Bilirubin Urine Urobilinogen Ur Leukocyte Esterase Urine WBC (Auto) Urine RBC (Auto) Ur Squamous Epith Cells Blood Type Antibody Screen 07/05/17 07/05/17 07/06/17 15:39 17:36 07:49 WBC 5.9 RBC 3.51 L Hgb 10.7 L Hct 31.0 L MCV 88.5 MCH 30.6 MCHC 34.6 RDW 13.8 Plt Count 253 MPV 7.8 Neut % (Auto) 70.0 Lymph % (Auto) 15.4 L [place] % (Auto) 9.2 Eos % (Auto) 4.9 H Baso % (Auto) 0.5 Neut # (Auto) 4.1 Lymph # (Auto) 0.9 L [place] # (Auto) 0.5 Eos # (Auto) 0.3 Baso # (Auto) 0.0 PT INR APTT Sodium Potassium Chloride Carbon Dioxide Anion Gap BUN Creatinine Est GFR ( Amer) Est GFR (Non-Af Amer) Random Glucose Calcium Total Bilirubin AST ALT Alkaline Phosphatase Total Protein Albumin Globulin Albumin/Globulin Ratio Urine Color [place] Urine Clarity Clear Urine pH 5.0 Ur Specific [place] 1.024 Urine Protein 1+ H Urine Glucose (UA) Normal Urine Ketones Negative Urine Blood Negative Urine Nitrate Negative Urine Bilirubin Negative Urine Urobilinogen 4.0 Ur Leukocyte Esterase Neg Urine WBC (Auto) 1 Urine RBC (Auto) < 1 Ur Squamous Epith Cells < 1 Blood Type A POSITIVE Antibody Screen Negative 07/06/17 07:49 WBC RBC Hgb Hct MCV MCH MCHC RDW Plt Count MPV Neut % (Auto) Lymph % (Auto) [place] % (Auto) Eos % (Auto) Baso % (Auto) Neut # (Auto) Lymph # (Auto) [place] # (Auto) Eos # (Auto) Baso # (Auto) PT INR APTT Sodium 138 Potassium 4.5 Chloride 103 Carbon Dioxide 29 Anion Gap 10 BUN 14 Creatinine 1.0 Est GFR ( Amer) > 60 Est GFR (Non-Af Amer) > 60 Random Glucose 110 Calcium 8.3 L Total Bilirubin 0.7 AST 22 ALT 36 Alkaline Phosphatase 132 H Total Protein 6.1 L Albumin 2.8 L D Globulin 3.3 Albumin/Globulin Ratio 0.8 L Urine Color Urine Clarity Urine pH Ur Specific [place] Urine Protein Urine Glucose (UA) Urine Ketones Urine Blood Urine Nitrate Urine Bilirubin Urine Urobilinogen Ur Leukocyte Esterase Urine WBC (Auto) Urine RBC (Auto) Ur Squamous Epith Cells Blood Type Antibody Screen - EKG Data EKG Interpreted by: Myself EKG shows normal: Sinus rhythm Rate: Normal Assessment & Plan - Assessment and Plan (Free Text) Assessment: Intraabo Abscess; HTN On IV antibiotic/ and for drainage procedure
[2017-07-06] MEDS ORDERED: Pneumococcal 23-Valent Vaccine IM ONE (10:00)
[2017-07-06] MEDS: Nitroglycerin 0.1 mg/hr Top Patch TD SCH (10:15)
[2017-07-06] MEDS ORDERED: Propofol 10 mg/ml Inj (20 ML) ONE (10:59)
[2017-07-06] MEDS ORDERED: Midazolam 2 MG/2 ML VIAL ONE (11:00)
[2017-07-06] MEDS ORDERED: Rocuronium 10 mg/ml (5 ml) ONE (11:45)
[2017-07-06] MEDS ORDERED: Morphine Monoject Barrel PCA 1mg/ml IV PRN (12:21)
--- NOTE | 2017-07-06 13:07 | PCM.SURG1 ---
Surgeon's Initial Post Op Note - Surgeon's Notes Surgeon: Dr. Coronado Chief Power Dispatcher: Dr. Brock PGY2, PGY1, Aj OMS3 Type of Anesthesia: General Endo Pre-Operative Diagnosis: Infected Mesh. abdominal abscess Operative Findings: Abdominal abscess, 500cc purulent abdominal fluid. Mesh adhered to posterior abdominal wall. Post-Operative Diagnosis: as above Operation Performed: Exploratory laparotomy; removal of infected mesh, evacuation of abodminal abscess Specimen/Specimens Removed: infected mesh; peritoneal fluid culture x2 Estimated Blood Loss: EBL {In ML}: 100 Blood Products Given: N/A Drains Used: No Drains Post-Op Condition: Fair Date of Surgery/Procedure: 07/06/17 Time of Surgery/Procedure: 13:08
--- NOTE | 2017-07-06 14:35 | CARD ---
APPROVED REPORT EKG Measurement Heart [id number] <Conclusion> Normal sinus rhythm Possible Anterior infarct, age undetermined Abnormal ECG
[2017-07-06] MEDS: Lactated Ringer's 1,000 ML IV SCH ×2 (14:37→20:05)
--- NOTE | 2017-07-06 16:28 | CP.PCM.CON ---
History of Present Illness - History of Present Illness History of Present Illness: 51M s/p Ventral hernia repair presents to the ED with multiple subjective fevers , periumbilical abdominal pain, nausea. Workup shows intra-abdominal abscess on CT scan. He has been unable to eat solid foods. Patient was initially admitted for incisional hernia repair on 06/13/17. went to OR for drainage / revision IV antibiotics in progress PMH: HTN, diverticulitis, hypothyroidism, anxiety, kidney stones, CKD Surg Hx:Incisional hernia 06/13/17 at [facility], right hydrocelectomy in February 2017 at [facility], partial colectomy for diverticulitis in May 2015, cholecyctectomy Home Meds: Telmisartan/Hydrochlorothiazide 1 tab daily PO Social Hx: Denies use of tobacco, alcohol, drugs (indicated prior use of tobacco with cessation earlier this year) FMH: Denies Allgeries: NKDA, shellfish (produces rash) Review of Systems - Review of Systems Systems not reviewed;Unavailable: Acuity of Condition - Constitutional Constitutional: absent: Headache, Night Sweats, Sleep Apnea - EENT Eyes: absent: Change in Vision, Irritation, Sees Flashes Nose/Mouth/Throat: absent: Nasal Congestion, Bleeding Gums, Dysphagia, Hoarsness - Cardiovascular Cardiovascular: absent: Chest Pain, Diaphoresis, Leg Edema, Leg Ulcers, Palpitations - Respiratory Respiratory: absent: Cough, Pain on Inspiration, Chest Congestion, Excessive Mucous Production - Gastrointestinal Gastrointestinal: Abdominal Pain. absent: Diarrhea, Excessive Flatus, Hematochezia, Melena, Nausea, Vomiting - Musculoskeletal Musculoskeletal: absent: Abnormal Gait, Limited Range of Motion, Myalgias Past Patient History - Infectious Disease Hx of Infectious Diseases: None - Past Medical History & Family History Past Medical History?: Yes - Past Social History Smoking Status: Former Smoker - CARDIAC Hx Hypertension: Yes - PULMONARY Hx Respiratory Disorders: No - NEUROLOGICAL Hx Neurological Disorder: No - HEENT Hx HEENT Problems: No - RENAL Hx Chronic Kidney Disease: Yes Hx Kidney Stones: Yes (PASSED ON OWN) - ENDOCRINE/METABOLIC Hx Hypothyroidism: Yes (no longer needs meds) - HEMATOLOGICAL/ONCOLOGICAL Hx Blood Disorders: No - INTEGUMENTARY Hx Dermatological Problems: No - MUSCULOSKELETAL/RHEUMATOLOGICAL Hx Falls: No - GASTROINTESTINAL Hx Diverticulitis: Yes Hx Gall Bladder Disease: Yes - GENITOURINARY/GYNECOLOGICAL Hx Genitourinary Disorders: Yes Other/Comment: hydrocelectomy - PSYCHIATRIC Hx Substance Use: No - SURGICAL HISTORY Hx Cholecystectomy: Yes Other/Comment: incisional hernia repair,lysis of dense adhesions,repair of enterotomy SB resection w/ anastomosis x2 - ANESTHESIA Hx Anesthesia: Yes Hx Anesthesia Reactions: No Hx Malignant Hyperthermia: No Meds Allergies/Adverse Reactions: Allergies Allergy/AdvReac Type Severity Reaction Status Date / Time No Known Allergies Allergy Verified 06/21/17 11:59 - Medications Medications: Current Medications Acetaminophen (Tylenol 325mg Tab) 650 mg PO Q6 PRN PRN Reason: Fever >100.4 F Heparin Sodium (Porcine) (Heparin) 5,000 units SC Q8 [facility] Last Admin: 07/06/17 06:00 Dose: Not Given Hydromorphone HCl (Dilaudid) 0.5 mg IVP Q4H PRN PRN Reason: Pain, moderate (4-7) Last Admin: 07/06/17 14:44 Dose: 0.5 mg Hydromorphone/Sodium Chloride (Dilaudid Delivery Consultant) 6 mg IV Q4H PRN; Protocol PRN Reason: Pain, moderate (4-7) Vancomycin/Sodium Chloride (Vancomycin 1 Gm/Ns 200 Ml) 1 gm in 200 mls @ 133 mls/hr IVPB Q12H [facility] PRN Reason: Protocol Stop: 07/11/17 04:01 Last Admin: 07/06/17 03:44 Dose: 133 mls/hr Piperacillin Sod/Tazobactam (Sod 3.375 gm/ Sodium Chloride) 100 mls @ 100 mls/ hr IVPB Q6H [facility] PRN Reason: Protocol Last Admin: 07/06/17 11:54 Dose: Not Given Acetaminophen (Ofirmev) 100 mls @ 400 mls/hr IV Q6 [facility] Stop: 07/07/17 18:14 Last Admin: 07/06/17 15:41 Dose: 400 mls/hr Lactated Ringer's (Lactated Ringer's) 1,000 mls @ 150 mls/hr IV .Q6H40M [facility] Last Admin: 07/06/17 14:37 Dose: 150 mls/hr Nitroglycerin (Nitro-Dur 0.1 Mg/Hr Patch) 1 patch TD DAILY [facility] Last Admin: 07/06/17 10:15 Dose: Not Given Ondansetron HCl (Zofran Inj) 4 mg IVP Q6 PRN PRN Reason: Nausea/Vomiting Pantoprazole Sodium (Protonix Inj) 40 mg IVP DAILY [facility] Physical Exam - Constitutional Appears: Chronically Ill - Head Exam Head Exam: NORMOCEPHALIC - Eye Exam Eye Exam: PERRL - ENT Exam ENT Exam: Mucous Membranes Dry - Neck Exam Neck exam: Negative for: Lymphadenopathy - Respiratory Exam Respiratory Exam: Decreased Breath Sounds - Cardiovascular Exam Cardiovascular Exam: REGULAR RHYTHM - GI/Abdominal Exam GI & Abdominal Exam: Diminished Bowel Sounds, Guarding, Tenderness - Rectal Exam Rectal Exam: Deferred - Exam Exam: NORMAL INSPECTION - Extremities Exam Extremities exam: Negative for: pedal edema - Back Exam Back exam: absent: CVA tenderness (L), CVA tenderness (R) - Neurological Exam Neurological exam: Alert, CN II-XII Intact, Oriented x3, Reflexes Normal - Psychiatric Exam Psychiatric exam: Depressed - Skin Skin Exam: Dry Results - Vital Signs Recent Vital Signs: Last Vital Signs Temp 98.9 F 07/06/17 14:00 Pulse 74 07/06/17 14:00 Resp 10 L 07/06/17 14:00 BP 105/62 07/06/17 14:00 Pulse Ox 100 07/06/17 14:00 - Labs Result Diagrams: 07/07/17 06:28 07/07/17 06:28 Labs: Laboratory Results - last 24 hr 07/05/17 07/05/17 07/06/17 15:39 17:36 07:49 WBC 5.9 RBC 3.51 L Hgb 10.7 L Hct 31.0 L MCV 88.5 MCH 30.6 MCHC 34.6 RDW 13.8 Plt Count 253 MPV 7.8 Neut % (Auto) 70.0 Lymph % (Auto) 15.4 L [place] % (Auto) 9.2 Eos % (Auto) 4.9 H Baso % (Auto) 0.5 Neut # (Auto) 4.1 Lymph # (Auto) 0.9 L [place] # (Auto) 0.5 Eos # (Auto) 0.3 Baso # (Auto) 0.0 Sodium Potassium Chloride Carbon Dioxide Anion Gap BUN Creatinine Est GFR ( Amer) Est GFR (Non-Af Amer) Random Glucose Calcium Total Bilirubin AST ALT Alkaline Phosphatase Total Protein Albumin Globulin Albumin/Globulin Ratio Urine Color Caty Urine Clarity Clear Urine pH 5.0 Ur Specific [place] 1.024 Urine Protein 1+ H Urine Glucose (UA) Normal Urine Ketones Negative Urine Blood Negative Urine Nitrate Negative Urine Bilirubin Negative Urine Urobilinogen 4.0 Ur Leukocyte Esterase Neg Urine WBC (Auto) 1 Urine RBC (Auto) < 1 Ur Squamous Epith Cells < 1 Blood Type A POSITIVE Antibody Screen Negative 07/06/17 07:49 WBC RBC Hgb Hct MCV MCH MCHC RDW Plt Count MPV Neut % (Auto) Lymph % (Auto) [place] % (Auto) Eos % (Auto) Baso % (Auto) Neut # (Auto) Lymph # (Auto) [place] # (Auto) Eos # (Auto) Baso # (Auto) Sodium 138 Potassium 4.5 Chloride 103 Carbon Dioxide 29 Anion Gap 10 BUN 14 Creatinine 1.0 Est GFR ( Amer) > 60 Est GFR (Non-Af Amer) > 60 Random Glucose 110 Calcium 8.3 L Total Bilirubin 0.7 AST 22 ALT 36 Alkaline Phosphatase 132 H Total Protein 6.1 L Albumin 2.8 L D Globulin 3.3 Albumin/Globulin Ratio 0.8 L Urine Color Urine Clarity Urine pH Ur Specific [place] Urine Protein Urine Glucose (UA) Urine Ketones Urine Blood Urine Nitrate Urine Bilirubin Urine Urobilinogen Ur Leukocyte Esterase Urine WBC (Auto) Urine RBC (Auto) Ur Squamous Epith Cells Blood Type Antibody Screen Assessment & Plan (1) Intra-abdominal abscess Status: Acute (2) S/P hernia repair Status: Acute - Assessment and Plan (Free Text) Assessment: await OR cultures will review imaging cont iv antibiotics and wound care
--- NOTE | 2017-07-06 17:05 | CP.PCM.CON ---
<IshaJolantanikkie - Last Filed: 07/06/17 18:29> History of Present Illness - History of Present Illness History of Present Illness: 51M s/p Ventral hernia repair presented to the ED with multiple subjective fevers, periumbilical abdominal pain, nausea. Workup shows intra-abdominal abscess on CT scan. He has been unable to eat solid foods. Patient was initially admitted for incisional hernia repair on 06/13/17. Patient is s/p Exploratory laparotomy; removal of infected mesh, and evacuation of abdominal abscess. Admitted to ICU for close monitoring ROS POSITIVES: Abdominal Pain at surgical Site NEGATIVES: Fever, chills, chest pain, SOB, nausea, vomiting, changes in bowel habits, urinary symptoms. PMH: HTN, diverticulitis, hypothyroidism, anxiety, kidney stones, CKD Surg Hx: Incisional hernia 06/13/17 at [facility], right hydrocelectomy in February 2017 at [facility], partial colectomy for diverticulitis in May 2015, cholecyctectomy Home Meds: Telmisartan/Hydrochlorothiazide 1 tab daily PO Social Hx: Denies use of tobacco, alcohol, drugs (indicated prior use of tobacco with cessation earlier this year) FMH: Denies Allergies: NKDA, shellfish (produces rash) Review of Systems - Review of Systems All systems: reviewed and no additional remarkable complaints except (As per HPI ) Review of Systems: As per HPI Past Patient History - Infectious Disease Hx of Infectious Diseases: None - Past Medical History & Family History Past Medical History?: Yes - Past Social History Smoking Status: Former Smoker - CARDIAC Hx Hypertension: Yes - PULMONARY Hx Respiratory Disorders: No - NEUROLOGICAL Hx Neurological Disorder: No - HEENT Hx HEENT Problems: No - RENAL Hx Chronic Kidney Disease: Yes Hx Kidney Stones: Yes (PASSED ON OWN) - ENDOCRINE/METABOLIC Hx Hypothyroidism: Yes (no longer needs meds) - HEMATOLOGICAL/ONCOLOGICAL Hx Blood Disorders: No - INTEGUMENTARY Hx Dermatological Problems: No - MUSCULOSKELETAL/RHEUMATOLOGICAL Hx Falls: No - GASTROINTESTINAL Hx Diverticulitis: Yes Hx Gall Bladder Disease: Yes - GENITOURINARY/GYNECOLOGICAL Hx Genitourinary Disorders: Yes Other/Comment: hydrocelectomy - PSYCHIATRIC Hx Substance Use: No - SURGICAL HISTORY Hx Cholecystectomy: Yes Other/Comment: incisional hernia repair,lysis of dense adhesions,repair of enterotomy SB resection w/ anastomosis x2 - ANESTHESIA Hx Anesthesia: Yes Hx Anesthesia Reactions: No Hx Malignant Hyperthermia: No Meds Allergies/Adverse Reactions: Allergies Allergy/AdvReac Type Severity Reaction Status Date / Time No Known Allergies Allergy Verified 06/21/17 11:59 - Medications Medications: Current Medications Acetaminophen (Tylenol 325mg Tab) 650 mg PO Q6 PRN PRN Reason: Fever >100.4 F Heparin Sodium (Porcine) (Heparin) 5,000 units SC Q8 [facility] Last Admin: 07/06/17 06:00 Dose: Not Given Hydromorphone HCl (Dilaudid) 0.5 mg IVP Q4H PRN PRN Reason: Pain, moderate (4-7) Last Admin: 07/06/17 14:44 Dose: 0.5 mg Hydromorphone/Sodium Chloride (Dilaudid Hydroelectric Mechanic) 6 mg IV Q4H PRN; Protocol PRN Reason: Pain, moderate (4-7) Last Admin: 07/06/17 16:47 Dose: 6 mg Vancomycin/Sodium Chloride (Vancomycin 1 Gm/Ns 200 Ml) 1 gm in 200 mls @ 133 mls/hr IVPB Q12H [facility] PRN Reason: Protocol Stop: 07/11/17 04:01 Last Admin: 07/06/17 16:59 Dose: 133 mls/hr Piperacillin Sod/Tazobactam (Sod 3.375 gm/ Sodium Chloride) 100 mls @ 100 mls/ hr IVPB Q6H [facility] PRN Reason: Protocol Last Admin: 07/06/17 11:54 Dose: Not Given Acetaminophen (Ofirmev) 100 mls @ 400 mls/hr IV Q6 [facility] Stop: 07/07/17 18:14 Last Admin: 07/06/17 15:41 Dose: 400 mls/hr Lactated Ringer's (Lactated Ringer's) 1,000 mls @ 150 mls/hr IV .Q6H40M [facility] Last Admin: 07/06/17 14:37 Dose: 150 mls/hr Nitroglycerin (Nitro-Dur 0.1 Mg/Hr Patch) 1 patch TD DAILY [facility] Last Admin: 07/06/17 10:15 Dose: Not Given Ondansetron HCl (Zofran Inj) 4 mg IVP Q6 PRN PRN Reason: Nausea/Vomiting Pantoprazole Sodium (Protonix Inj) 40 mg IVP DAILY [facility] Physical Exam - Constitutional Appears: Well, Non-toxic, No Acute Distress - Head Exam Head Exam: ATRAUMATIC, NORMAL INSPECTION, NORMOCEPHALIC - Eye Exam Eye Exam: Normal appearance - ENT Exam ENT Exam: Mucous Membranes Moist Additional comments: NG Tube - Respiratory Exam Respiratory Exam: Clear to Auscultation Bilateral, NORMAL BREATHING PATTERN - Cardiovascular Exam Cardiovascular Exam: RRR, +S1, +S2 - GI/Abdominal Exam GI & Abdominal Exam: Hypoactive Bowel Sounds, Soft, Tenderness (Surgical Site ) . absent: Distended, Firm Additional comments: Abdominal Dressing. Dressing Clean, dry, and intact. - Extremities Exam Extremities exam: Negative for: pedal edema - Neurological Exam Neurological exam: Alert, Oriented x3 - Psychiatric Exam Psychiatric exam: Normal Affect, Normal Mood - Skin Skin Exam: Dry, Intact, Normal Color, Warm Results - Vital Signs Recent Vital Signs: Last Vital Signs Temp 98.9 F 07/06/17 14:00 Pulse 74 07/06/17 14:00 Resp 10 L 07/06/17 14:00 BP 105/62 07/06/17 14:00 Pulse Ox 100 07/06/17 14:00 - Labs Result Diagrams: 07/06/17 07:49 07/06/17 07:49 Labs: Laboratory Results - last 24 hr 07/05/17 07/06/17 07/06/17 17:36 07:49 07:49 WBC 5.9 RBC 3.51 L Hgb 10.7 L Hct 31.0 L MCV 88.5 MCH 30.6 MCHC 34.6 RDW 13.8 Plt Count 253 MPV 7.8 Neut % (Auto) 70.0 Lymph % (Auto) 15.4 L [place] % (Auto) 9.2 Eos % (Auto) 4.9 H Baso % (Auto) 0.5 Neut # (Auto) 4.1 Lymph # (Auto) 0.9 L [place] # (Auto) 0.5 Eos # (Auto) 0.3 Baso # (Auto) 0.0 Sodium 138 Potassium 4.5 Chloride 103 Carbon Dioxide 29 Anion Gap 10 BUN 14 Creatinine 1.0 Est GFR ( Amer) > 60 Est GFR (Non-Af Amer) > 60 Random Glucose 110 Calcium 8.3 L Total Bilirubin 0.7 AST 22 ALT 36 Alkaline Phosphatase 132 H Total Protein 6.1 L Albumin 2.8 L D Globulin 3.3 Albumin/Globulin Ratio 0.8 L Urine Color Caty Urine Clarity Clear Urine pH 5.0 Ur Specific [place] 1.024 Urine Protein 1+ H Urine Glucose (UA) Normal Urine Ketones Negative Urine Blood Negative Urine Nitrate Negative Urine Bilirubin Negative Urine Urobilinogen 4.0 Ur Leukocyte Esterase Neg Urine WBC (Auto) 1 Urine RBC (Auto) < 1 Ur Squamous Epith Cells < 1 Assessment & Plan - Assessment and Plan (Free Text) Assessment: 51M with PMHx of HTN, diverticulitis, hypothyroidism, anxiety, kidney stones, and CKD s/p Ventral hernia repair, presented to the ED with multiple subjective fevers, periumbilical abdominal pain, nausea. Workup shows intra-abdominal abscess on CT scan. He has been unable to eat solid foods. Patient was initially admitted for incisional hernia repair on 06/13/17. Patient is s/p Exploratory laparotomy; removal of infected mesh, and evacuation of abdominal abscess. Admitted to ICU for close monitoring Plan: Neuro GCS: 15 Sedation: None Cardio: A: Hx of HTN Patient is normotensive Hold Home Anti-Hypertensives Nitroglycerin Patch daily Pulm: A: No Acute Issues Incentive Spirometry Q1 GI A: S/P Abdominal Surgery POD#0 Zofran PRN Dialudid 0.5 PRN Renal/Uro A: CKD, Hx of Nephrolithiais. GFR >60, Cr. 1.0 ID A: Intraabdominal Abcess (evacuated) Afebrile, No Leukocytosis Cont. Vanc/Zosyn per Surgery PRN Tylenol ID Consulted, Recs Appreciated F/U Cultures Proph Protonix SCD's Heparin Diet: NPO Fluids: LR @ 150 Patient seen and discussed with ICU Attending Merry Vieira, PGY-1 <Bill Stratton S - Last Filed: 07/06/17 19:04> Meds - Medications Medications: Current Medications Acetaminophen (Tylenol 325mg Tab) 650 mg PO Q6 PRN PRN Reason: Fever >100.4 F Heparin Sodium (Porcine) (Heparin) 5,000 units SC Q8 [facility] Last Admin: 07/06/17 14:00 Dose: Not Given Hydromorphone HCl (Dilaudid) 0.5 mg IVP Q4H PRN PRN Reason: Pain, moderate (4-7) Last Admin: 07/06/17 14:44 Dose: 0.5 mg Vancomycin/Sodium Chloride (Vancomycin 1 Gm/Ns 200 Ml) 1 gm in 200 mls @ 133 mls/hr IVPB Q12H [facility] PRN Reason: Protocol Stop: 07/11/17 04:01 Last Admin: 07/06/17 16:59 Dose: 133 mls/hr Piperacillin Sod/Tazobactam (Sod 3.375 gm/ Sodium Chloride) 100 mls @ 100 mls/ hr IVPB Q6H [facility] PRN Reason: Protocol Last Admin: 07/06/17 11:54 Dose: Not Given Acetaminophen (Ofirmev) 100 mls @ 400 mls/hr IV Q6 [facility] Stop: 07/07/17 18:14 Last Admin: 07/06/17 15:41 Dose: 400 mls/hr Lactated Ringer's (Lactated Ringer's) 1,000 mls @ 150 mls/hr IV .Q6H40M [facility] Last Admin: 07/06/17 14:37 Dose: 150 mls/hr Nitroglycerin (Nitro-Dur 0.1 Mg/Hr Patch) 1 patch TD DAILY [facility] Last Admin: 07/06/17 10:15 Dose: Not Given Ondansetron HCl (Zofran Inj) 4 mg IVP Q6 PRN PRN Reason: Nausea/Vomiting Pantoprazole Sodium (Protonix Inj) 40 mg IVP DAILY [facility] Results - Vital Signs Recent Vital Signs: Last Vital Signs Temp 98.2 F 07/06/17 17:00 Pulse 86 07/06/17 18:20 Resp 16 07/06/17 18:20 BP 114/75 07/06/17 18:20 Pulse Ox 98 07/06/17 18:20 - Labs Result Diagrams: 07/06/17 07:49 07/06/17 07:49 Labs: Laboratory Results - last 24 hr 07/06/17 07/06/17 07:49 07:49 WBC 5.9 RBC 3.51 L Hgb 10.7 L Hct 31.0 L MCV 88.5 MCH 30.6 MCHC 34.6 RDW 13.8 Plt Count 253 MPV 7.8 Neut % (Auto) 70.0 Lymph % (Auto) 15.4 L [place] % (Auto) 9.2 Eos % (Auto) 4.9 H Baso % (Auto) 0.5 Neut # (Auto) 4.1 Lymph # (Auto) 0.9 L [place] # (Auto) 0.5 Eos # (Auto) 0.3 Baso # (Auto) 0.0 Sodium 138 Potassium 4.5 Chloride 103 Carbon Dioxide 29 Anion Gap 10 BUN 14 Creatinine 1.0 Est GFR ( Amer) > 60 Est GFR (Non-Af Amer) > 60 Random Glucose 110 Calcium 8.3 L Total Bilirubin 0.7 AST 22 ALT 36 Alkaline Phosphatase 132 H Total Protein 6.1 L Albumin 2.8 L D Globulin 3.3 Albumin/Globulin Ratio 0.8 L Attending/Attestation - Attestation I have personally seen and examined this patient.: Yes I have fully participated in the care of the patient.: Yes I have reviewed all pertinent clinical information: Yes Notes (Text): 07/06/17 19:03 patient seen and examined in the intensive care unit. 51-year-old male status post exploratory laparotomy; removal of infected mesh, evacuation of abodminal abscess IV fluids ICU observation overnight Hemodynamically stable
--- NOTE | 2017-07-06 23:10 | OP ---
PROCEDURE DATE: 07/06/2017 PREOPERATIVE DIAGNOSIS: Intraabdominal abscess, infected mesh. PROCEDURE CARRIED OUT: Exploratory laparotomy, removal of infected mesh, drainage of intraabdominal abscess. SURGEON: Crow Coronado Jr., MD PROMOTIONS SPECIALIST: Dr. Yifan Brock and Dr. Vega ANESTHESIOLOGIST: Ana Savage CRNA DESCRIPTION OF PROCEDURE: The patient is a middle-aged man with history of multiple abdominal surgeries who recently had recurrent abdominal hernia and underwent repair. At that time, there were multiple enterotomies. The mesh was placed. Subsequently, the patient developed a mesh infection which was seen on a CAT scan done yesterday. OPERATIVE FINDINGS: There was foul smelling pus, but there was no evidence of enterocutaneous or entero-abscess fistula. The entire small bowel was not emphasized, not run because of the numerous intraabdominal adhesions. Nonetheless, we were able to remove the mesh entirely, and after we removed the mesh entirely, we carefully inspected the bowel. There was a large fluid collection underneath here which was fermenting and this was cultured, but there was no evidence of any communication with the bowel. After this have been all done, we irrigated that with an antiseptic solution and then closed with retention sutures and Prolene sutures on the midline fascia. Skin was approximated, but not completely closed. Blood loss was 50 mL. Operation carried out exploratory laparotomy, removal of infected mesh (the entire mesh was removed). There may be segments. There were portions that were highly incorporated that could not be removed but the entire mesh as we could see was removed. Specimen was infected mesh. FINDINGS: Extensive submesh abscess, but there was no evidence of any bowel communication to the abscess or any leak internally. Crow Coronado Jr., MD cc: Dr. Garcia.
[2017-07-07] MEDS: Lactated Ringer's 1,000 ML IV SCH ×5 (00:02→21:16)
[2017-07-07] MEDS: Piperacillin/Tazobact 3.375 GM in Sodium Chloride 0.9% 100 ML IVPB SCH ×4 (00:04→17:58)
[2017-07-07] MEDS: HYDROmorphone 0.5 mg/0.5 ml ISec IVP PRN ×5 (00:06→21:13)
[2017-07-07] MEDS: Vancomycin 1 gm/NS 200 ml 1 GM/200 ML BAG IVPB SCH ×2 (04:00→16:51)
[2017-07-07 06:43] LABS: BASO % 0.4 % (0.0-2.0); EOS # 0.2 K/uL (0.0-0.7); EOS % 3.3 % (0.0-4.0); HEMOGLOBIN 10.9 g/dL (12.0-18.0); LYMPH # 0.6 K/uL (1.0-4.3); LYMPH % 12.2 % (20.0-40.0); MEAN CELL VOLUME 89.8 fL (80.0-94.0); MEAN CORPUSCULAR HEMOGLOBIN 30.5 pg (27.0-31.0); MEAN CORPUSCULAR HGB CONC 33.9 g/dL (33.0-37.0); MEAN PLATELET VOLUME 7.9 fL (7.2-11.7); MONO # 0.4 K/uL (0.0-0.8); MONO % 8.6 % (0.0-10.0); NEUT # 3.9 K/uL (1.8-7.0); NEUT % 75.5 % (50.0-75.0); RBC 3.59 Mil/uL (4.40-5.90); RED CELL DISTRIBUTION WIDTH 14.1 % (11.5-14.5); WHITE BLOOD COUNT 5.2 K/uL (4.8-10.8)
[2017-07-07 06:58] LABS: BLOOD UREA NITROGEN 10 mg/dL (9-20); CALCIUM 8.1 mg/dl (8.6-10.4); GFR AFRICAN-AMERICAN > 60; GFR NON-AFRICAN AMERICAN > 60
--- NOTE | 2017-07-07 07:44 | CP.PCM.PN ---
Subjective - Date & Time of Evaluation Date of Evaluation: 07/07/17 Time of Evaluation: 07:41 - Subjective Subjective: Surgery: Dr. Coronado Patient doing well. Some pain to abdomen controlled with medication. urine output adequate overnight, per nursing. Rebecca carrillo this am. No acute events overnight. Objective - Vital Signs/Intake and Output Vital Signs (last 24 hours): Temp Pulse Resp BP Pulse Ox 99.9 F H 74 16 96/61 L 100 07/07/17 00:00 07/07/17 06:38 07/07/17 06:38 07/07/17 06:38 07/07/17 06:38 Intake and Output: 07/07/17 07/07/17 06:59 18:59 Intake Total 1897 210 Output Total 745 50 Balance 1152 160 - Medications Medications: Current Medications Acetaminophen (Tylenol 325mg Tab) 650 mg PO Q6 PRN PRN Reason: Fever >100.4 F Heparin Sodium (Porcine) (Heparin) 5,000 units SC Q8 [facility] Last Admin: 07/07/17 05:22 Dose: 5,000 units Hydromorphone HCl (Dilaudid) 0.5 mg IVP Q4H PRN PRN Reason: Pain, moderate (4-7) Last Admin: 07/07/17 05:23 Dose: 0.5 mg Vancomycin/Sodium Chloride (Vancomycin 1 Gm/Ns 200 Ml) 1 gm in 200 mls @ 133 mls/hr IVPB Q12H [facility] PRN Reason: Protocol Stop: 07/11/17 04:01 Last Admin: 07/07/17 04:00 Dose: 133 mls/hr Piperacillin Sod/Tazobactam (Sod 3.375 gm/ Sodium Chloride) 100 mls @ 100 mls/ hr IVPB Q6H [facility] PRN Reason: Protocol Last Admin: 07/07/17 05:21 Dose: 100 mls/hr Acetaminophen (Ofirmev) 100 mls @ 400 mls/hr IV Q6 [facility] Stop: 07/07/17 18:14 Last Admin: 07/07/17 05:26 Dose: 400 mls/hr Lactated Ringer's (Lactated Ringer's) 1,000 mls @ 150 mls/hr IV .Q6H40M [facility] Last Admin: 07/07/17 02:35 Dose: Not Given Nitroglycerin (Nitro-Dur 0.1 Mg/Hr Patch) 1 patch TD DAILY [facility] Last Admin: 07/06/17 10:15 Dose: Not Given Ondansetron HCl (Zofran Inj) 4 mg IVP Q6 PRN PRN Reason: Nausea/Vomiting Pantoprazole Sodium (Protonix Inj) 40 mg IVP DAILY [facility] - Labs Labs: 07/07/17 06:28 07/07/17 06:28 PT 16.1 SECONDS (9.7-12.2) H 07/05/17 15:39 INR 1.5 07/05/17 15:39 APTT 29 SECONDS (21-34) 07/05/17 15:39 - Constitutional Appears: Non-toxic, No Acute Distress - Head Exam Head Exam: ATRAUMATIC, NORMOCEPHALIC - Eye Exam Eye Exam: EOMI, Normal appearance - ENT Exam ENT Exam: Mucous Membranes Moist Additional comments: NGT on LCWS - Respiratory Exam Respiratory Exam: NORMAL BREATHING PATTERN. absent: Respiratory Distress - Cardiovascular Exam Cardiovascular Exam: REGULAR RHYTHM. absent: Tachycardia - GI/Abdominal Exam GI & Abdominal Exam: Soft, Tenderness (elva-incisional appropriate ). absent: Guarding, Rebound - Extremities Exam Extremities Exam: Normal Inspection. absent: Calf Tenderness - Neurological Exam Neurological Exam: Alert, Awake, Oriented x3 - Psychiatric Exam Psychiatric exam: Normal Affect, Normal Mood - Skin Skin Exam: Dry, Normal Color, Warm Assessment and Plan - Assessment and Plan (Free Text) Assessment: 51 y/o male s/p ex lap w/ removal of infected mesh POD1 Plan: -NGT on LCWS -cont pain medications -rebecca carrillo -OOB to chair today -cont abx -monitor for bowel function -possible transfer out of ICU today -further recs per Dr. Ivonne Ojeda PGY3
--- NOTE | 2017-07-07 09:26 | CP.PCM.PN ---
Subjective - Date & Time of Evaluation Date of Evaluation: 07/07/17 Time of Evaluation: 09:25 - Subjective Subjective: findings reviewed with patient need for ngt until bwowl activity culture report noted Objective - Vital Signs/Intake and Output Vital Signs (last 24 hours): Temp Pulse Resp BP Pulse Ox 99.9 F H 74 14 98/63 L 99 07/07/17 00:00 07/07/17 07:00 07/07/17 07:00 07/07/17 07:38 07/07/17 07:00 Intake and Output: 07/07/17 07/07/17 06:59 18:59 Intake Total 1897 210 Output Total 745 400 Balance 1152 -190 - Medications Medications: Current Medications Acetaminophen (Tylenol 325mg Tab) 650 mg PO Q6 PRN PRN Reason: Fever >100.4 F Heparin Sodium (Porcine) (Heparin) 5,000 units SC Q8 [facility] Last Admin: 07/07/17 05:22 Dose: 5,000 units Hydromorphone HCl (Dilaudid) 0.5 mg IVP Q4H PRN PRN Reason: Pain, moderate (4-7) Last Admin: 07/07/17 05:23 Dose: 0.5 mg Vancomycin/Sodium Chloride (Vancomycin 1 Gm/Ns 200 Ml) 1 gm in 200 mls @ 133 mls/hr IVPB Q12H [facility] PRN Reason: Protocol Stop: 07/11/17 04:01 Last Admin: 07/07/17 04:00 Dose: 133 mls/hr Piperacillin Sod/Tazobactam (Sod 3.375 gm/ Sodium Chloride) 100 mls @ 100 mls/ hr IVPB Q6H [facility] PRN Reason: Protocol Last Admin: 07/07/17 05:21 Dose: 100 mls/hr Acetaminophen (Ofirmev) 100 mls @ 400 mls/hr IV Q6 [facility] Stop: 07/07/17 18:14 Last Admin: 07/07/17 05:26 Dose: 400 mls/hr Lactated Ringer's (Lactated Ringer's) 1,000 mls @ 150 mls/hr IV .Q6H40M [facility] Last Admin: 07/07/17 02:35 Dose: Not Given Nitroglycerin (Nitro-Dur 0.1 Mg/Hr Patch) 1 patch TD DAILY [facility] Last Admin: 07/06/17 10:15 Dose: Not Given Ondansetron HCl (Zofran Inj) 4 mg IVP Q6 PRN PRN Reason: Nausea/Vomiting Pantoprazole Sodium (Protonix Inj) 40 mg IVP DAILY [facility] - Labs Labs: 07/07/17 06:28 07/07/17 06:28 PT 16.1 SECONDS (9.7-12.2) H 07/05/17 15:39 INR 1.5 07/05/17 15:39 APTT 29 SECONDS (21-34) 07/05/17 15:39
[2017-07-07] MEDS: Nitroglycerin 0.1 mg/hr Top Patch TD SCH ×2 (11:20→11:32)
--- NOTE | 2017-07-07 16:29 | CP.PCM.PN ---
Subjective - Date & Time of Evaluation Date of Evaluation: 07/07/17 Time of Evaluation: 16:27 - Subjective Subjective: S: Feels lousy. NGT tube noted. No fever. Abdominal pain beter. Objective - Vital Signs/Intake and Output Vital Signs (last 24 hours): Temp Pulse Resp BP Pulse Ox 98.9 F 84 16 119/73 96 07/07/17 15:00 07/07/17 15:00 07/07/17 15:00 07/07/17 15:00 07/07/17 15:00 Intake and Output: 07/07/17 07/07/17 06:59 18:59 Intake Total 1897 1260 Output Total 745 780 Balance 1152 480 - Medications Medications: Current Medications Acetaminophen (Tylenol 325mg Tab) 650 mg PO Q6 PRN PRN Reason: Fever >100.4 F Heparin Sodium (Porcine) (Heparin) 5,000 units SC Q8 [facility] Last Admin: 07/07/17 16:03 Dose: 5,000 units Hydromorphone HCl (Dilaudid) 0.5 mg IVP Q4H PRN PRN Reason: Pain, moderate (4-7) Last Admin: 07/07/17 16:02 Dose: 0.5 mg Vancomycin/Sodium Chloride (Vancomycin 1 Gm/Ns 200 Ml) 1 gm in 200 mls @ 133 mls/hr IVPB Q12H [facility] PRN Reason: Protocol Stop: 07/11/17 04:01 Last Admin: 07/07/17 04:00 Dose: 133 mls/hr Piperacillin Sod/Tazobactam (Sod 3.375 gm/ Sodium Chloride) 100 mls @ 100 mls/ hr IVPB Q6H [facility] PRN Reason: Protocol Last Admin: 07/07/17 11:21 Dose: 100 mls/hr Lactated Ringer's (Lactated Ringer's) 1,000 mls @ 150 mls/hr IV .Q6H40M [facility] Last Admin: 07/07/17 16:08 Dose: Not Given Nitroglycerin (Nitro-Dur 0.1 Mg/Hr Patch) 1 patch TD DAILY [facility] Last Admin: 07/07/17 11:32 Dose: Not Given Ondansetron HCl (Zofran Inj) 4 mg IVP Q6 PRN PRN Reason: Nausea/Vomiting Pantoprazole Sodium (Protonix Inj) 40 mg IVP DAILY [facility] Last Admin: 07/07/17 11:19 Dose: 40 mg - Labs Labs: 07/07/17 06:28 07/07/17 06:28 PT 16.1 SECONDS (9.7-12.2) H 07/05/17 15:39 INR 1.5 07/05/17 15:39 APTT 29 SECONDS (21-34) 07/05/17 15:39 - Constitutional Appears: No Acute Distress - Head Exam Head Exam: NORMAL INSPECTION - Eye Exam Eye Exam: Normal appearance - ENT Exam ENT Exam: Normal Exam - Neck Exam Neck Exam: Normal Inspection - Respiratory Exam Respiratory Exam: NORMAL BREATHING PATTERN - Cardiovascular Exam Cardiovascular Exam: REGULAR RHYTHM - GI/Abdominal Exam GI & Abdominal Exam: Firm (operative dressing noted) - Rectal Exam Rectal Exam: Deferred - Extremities Exam Extremities Exam: Normal Inspection Assessment and Plan (1) Intra-abdominal abscess Status: Acute (2) HTN (hypertension) Status: Chronic - Assessment and Plan (Free Text) Assessment: A/p: Continue medications and post -op care
--- NOTE | 2017-07-07 19:33 | CP.PCM.PN ---
Subjective - Date & Time of Evaluation Date of Evaluation: 07/07/17 Time of Evaluation: 08:00 - Subjective Subjective: cultures + for Gram neg rods await ID abnd sensi cont iv rx Objective - Vital Signs/Intake and Output Vital Signs (last 24 hours): Temp Pulse Resp BP Pulse Ox 99.3 F 90 20 113/75 95 07/07/17 15:00 07/07/17 15:00 07/07/17 15:00 07/07/17 15:00 07/07/17 15:00 Intake and Output: 07/07/17 07/08/17 18:59 06:59 Intake Total 1260 Output Total 780 Balance 480 - Medications Medications: Current Medications Acetaminophen (Tylenol 325mg Tab) 650 mg PO Q6 PRN PRN Reason: Fever >100.4 F Heparin Sodium (Porcine) (Heparin) 5,000 units SC Q8 [facility] Last Admin: 07/07/17 16:03 Dose: 5,000 units Hydromorphone HCl (Dilaudid) 0.5 mg IVP Q4H PRN PRN Reason: Pain, moderate (4-7) Last Admin: 07/07/17 16:02 Dose: 0.5 mg Vancomycin/Sodium Chloride (Vancomycin 1 Gm/Ns 200 Ml) 1 gm in 200 mls @ 133 mls/hr IVPB Q12H [facility] PRN Reason: Protocol Stop: 07/11/17 04:01 Last Admin: 07/07/17 16:51 Dose: 133 mls/hr Piperacillin Sod/Tazobactam (Sod 3.375 gm/ Sodium Chloride) 100 mls @ 100 mls/ hr IVPB Q6H [facility] PRN Reason: Protocol Last Admin: 07/07/17 17:58 Dose: 100 mls/hr Lactated Ringer's (Lactated Ringer's) 1,000 mls @ 150 mls/hr IV .Q6H40M [facility] Last Admin: 07/07/17 16:08 Dose: Not Given Nitroglycerin (Nitro-Dur 0.1 Mg/Hr Patch) 1 patch TD DAILY [facility] Last Admin: 07/07/17 11:32 Dose: Not Given Ondansetron HCl (Zofran Inj) 4 mg IVP Q6 PRN PRN Reason: Nausea/Vomiting Pantoprazole Sodium (Protonix Inj) 40 mg IVP DAILY [facility] Last Admin: 07/07/17 11:19 Dose: 40 mg - Labs Labs: 07/07/17 06:28 07/07/17 06:28 PT 16.1 SECONDS (9.7-12.2) H 07/05/17 15:39 INR 1.5 07/05/17 15:39 APTT 29 SECONDS (21-34) 07/05/17 15:39 - Constitutional Appears: Well - Head Exam Head Exam: ATRAUMATIC, NORMAL INSPECTION, NORMOCEPHALIC - Eye Exam Eye Exam: EOMI, Normal appearance, PERRL Pupil Exam: NORMAL ACCOMODATION, PERRL - ENT Exam ENT Exam: Mucous Membranes Moist, Normal Exam - Neck Exam Neck Exam: Full ROM, Normal Inspection. absent: Lymphadenopathy - Respiratory Exam Respiratory Exam: Clear to Ausculation Bilateral, NORMAL BREATHING PATTERN - Cardiovascular Exam Cardiovascular Exam: REGULAR RHYTHM, +S1, +S2. absent: Murmur - GI/Abdominal Exam GI & Abdominal Exam: Distended, Tenderness, Diminished Bowel Sounds - Rectal Exam Rectal Exam: NORMAL INSPECTION - Exam Exam: Circumcision, NORMAL INSPECTION - Extremities Exam Extremities Exam: Full ROM, Normal Capillary Refill, Normal Inspection. absent : Joint Swelling, Pedal Edema - Back Exam Back Exam: NORMAL INSPECTION - Neurological Exam Neurological Exam: Alert, Awake, CN II-XII Intact, Normal Gait, Oriented x3 - Psychiatric Exam Psychiatric exam: Normal Affect, Normal Mood - Skin Skin Exam: Dry, Intact, Normal Color, Warm Assessment and Plan (1) Intra-abdominal abscess Status: Acute (2) S/P hernia repair Status: Acute - Assessment and Plan (Free Text) Assessment: cultures + for Gram neg rods await ID abnd sensi cont iv rx
[2017-07-08] MEDS: Piperacillin/Tazobact 3.375 GM in Sodium Chloride 0.9% 100 ML IVPB SCH ×3 (00:39→12:23)
[2017-07-08] MEDS: HYDROmorphone 0.5 mg/0.5 ml ISec IVP PRN ×5 (01:38→19:28)
[2017-07-08] MEDS: Lactated Ringer's 1,000 ML IV SCH ×5 (04:14→23:07)
[2017-07-08] MEDS: Vancomycin 1 gm/NS 200 ml 1 GM/200 ML BAG IVPB SCH ×2 (04:14→16:03)
[2017-07-08 07:37] LABS: BASO % 0.5 % (0.0-2.0); EOS # 0.4 K/uL (0.0-0.7); EOS % 8.5 % (0.0-4.0); HEMOGLOBIN 10.4 g/dL (12.0-18.0); LYMPH # 0.7 K/uL (1.0-4.3); MEAN CELL VOLUME 88.6 fL (80.0-94.0); MEAN CORPUSCULAR HEMOGLOBIN 30.9 pg (27.0-31.0); MEAN CORPUSCULAR HGB CONC 34.9 g/dL (33.0-37.0); MONO # 0.4 K/uL (0.0-0.8); NEUT # 3.5 K/uL (1.8-7.0); RBC 3.37 Mil/uL (4.40-5.90); WHITE BLOOD COUNT 5.1 K/uL (4.8-10.8)
[2017-07-08 07:46] LABS: BLOOD UREA NITROGEN 13 mg/dL (9-20); CALCIUM 8.1 mg/dl (8.6-10.4); GFR AFRICAN-AMERICAN > 60; GFR NON-AFRICAN AMERICAN > 60
--- NOTE | 2017-07-08 07:59 | CP.PCM.PN ---
Subjective - Date & Time of Evaluation Date of Evaluation: 07/08/17 Time of Evaluation: 06:30 - Subjective Subjective: General Surgery- Dr. Hernandez (Covering for Dr. Coronado) Patient seen and examined at bedside this AM. Had a fever of 101.6 last night, resolved after Tylenol. c/o bisltering around dressing. Abd appropriately tender around incision. NGT to suction 880cc bilious fluid Objective - Vital Signs/Intake and Output Vital Signs (last 24 hours): Temp Pulse Resp BP Pulse Ox 98.4 F 87 20 116/78 94 L 07/07/17 23:42 07/07/17 23:42 07/07/17 23:42 07/07/17 23:42 07/07/17 23:42 Intake and Output: 07/08/17 07/08/17 06:59 18:59 Intake Total 1200 Output Total 450 Balance 750 - Medications Medications: Current Medications Acetaminophen (Tylenol 325mg Tab) 650 mg PO Q6 PRN PRN Reason: Fever >100.4 F Last Admin: 07/07/17 21:41 Dose: 650 mg Heparin Sodium (Porcine) (Heparin) 5,000 units SC Q8 [facility] Last Admin: 07/08/17 06:21 Dose: 5,000 units Hydromorphone HCl (Dilaudid) 0.5 mg IVP Q4H PRN PRN Reason: Pain, moderate (4-7) Last Admin: 07/08/17 06:19 Dose: 0.5 mg Vancomycin/Sodium Chloride (Vancomycin 1 Gm/Ns 200 Ml) 1 gm in 200 mls @ 133 mls/hr IVPB Q12H [facility] PRN Reason: Protocol Stop: 07/11/17 04:01 Last Admin: 07/08/17 04:14 Dose: 133 mls/hr Piperacillin Sod/Tazobactam (Sod 3.375 gm/ Sodium Chloride) 100 mls @ 100 mls/ hr IVPB Q6H [facility] PRN Reason: Protocol Last Admin: 07/08/17 06:22 Dose: 100 mls/hr Lactated Ringer's (Lactated Ringer's) 1,000 mls @ 150 mls/hr IV .Q6H40M [facility] Last Admin: 07/08/17 07:15 Dose: Not Given Nitroglycerin (Nitro-Dur 0.1 Mg/Hr Patch) 1 patch TD DAILY [facility] Last Admin: 07/07/17 11:32 Dose: Not Given Ondansetron HCl (Zofran Inj) 4 mg IVP Q6 PRN PRN Reason: Nausea/Vomiting Pantoprazole Sodium (Protonix Inj) 40 mg IVP DAILY [facility] Last Admin: 07/07/17 11:19 Dose: 40 mg Zolpidem Tartrate (Ambien) 5 mg PO HS PRN PRN Reason: Insomnia - Labs Labs: 07/08/17 07:11 07/08/17 07:11 PT 16.1 SECONDS (9.7-12.2) H 07/05/17 15:39 INR 1.5 07/05/17 15:39 APTT 29 SECONDS (21-34) 07/05/17 15:39 - Constitutional Appears: Non-toxic, No Acute Distress - Head Exam Head Exam: ATRAUMATIC - Eye Exam Eye Exam: EOMI - Respiratory Exam Respiratory Exam: NORMAL BREATHING PATTERN. absent: Accessory Muscle Use, Respiratory Distress - Cardiovascular Exam Cardiovascular Exam: +S1, +S2. absent: Bradycardia, Tachycardia - GI/Abdominal Exam GI & Abdominal Exam: Distended, Soft, Tenderness (appropriately tender around incision). absent: Guarding, Rigid - Extremities Exam Extremities Exam: absent: Calf Tenderness - Neurological Exam Neurological Exam: Alert, Awake, Oriented x3 - Psychiatric Exam Psychiatric exam: Normal Affect - Skin Skin Exam: Intact, Warm Assessment and Plan - Assessment and Plan (Free Text) Assessment: 51M s/p removal of infected mesh POD#2 Plan: - clamp NGT - ice chips for dry mouth PRN - bacitracin for blisters - c/w IV Abx - reinforce dressing PRN - will d/w surgical attending PGY1
[2017-07-08] MEDS ORDERED: Bacitracin 500 Units/gm Oint Foilpak UD TOP ONE ×2 (08:03→11:00)
--- NOTE | 2017-07-08 08:14 | CP.PCM.PN ---
Subjective - Date & Time of Evaluation Date of Evaluation: 07/08/17 Time of Evaluation: 08:01 - Subjective Subjective: Pt feels week; no CP, no cough, no n/v; (+) draining coffee ground drainage Objective - Vital Signs/Intake and Output Vital Signs (last 24 hours): Temp Pulse Resp BP Pulse Ox 98.4 F 87 20 116/78 94 L 07/07/17 23:42 07/07/17 23:42 07/07/17 23:42 07/07/17 23:42 07/07/17 23:42 Intake and Output: 07/08/17 07/08/17 06:59 18:59 Intake Total 1200 Output Total 450 Balance 750 - Medications Medications: Current Medications Acetaminophen (Tylenol 325mg Tab) 650 mg PO Q6 PRN PRN Reason: Fever >100.4 F Last Admin: 07/07/17 21:41 Dose: 650 mg Heparin Sodium (Porcine) (Heparin) 5,000 units SC Q8 [facility] Last Admin: 07/08/17 06:21 Dose: 5,000 units Hydromorphone HCl (Dilaudid) 0.5 mg IVP Q4H PRN PRN Reason: Pain, moderate (4-7) Last Admin: 07/08/17 06:19 Dose: 0.5 mg Vancomycin/Sodium Chloride (Vancomycin 1 Gm/Ns 200 Ml) 1 gm in 200 mls @ 133 mls/hr IVPB Q12H [facility] PRN Reason: Protocol Stop: 07/11/17 04:01 Last Admin: 07/08/17 04:14 Dose: 133 mls/hr Piperacillin Sod/Tazobactam (Sod 3.375 gm/ Sodium Chloride) 100 mls @ 100 mls/ hr IVPB Q6H [facility] PRN Reason: Protocol Last Admin: 07/08/17 06:22 Dose: 100 mls/hr Lactated Ringer's (Lactated Ringer's) 1,000 mls @ 150 mls/hr IV .Q6H40M [facility] Last Admin: 07/08/17 07:15 Dose: Not Given Nitroglycerin (Nitro-Dur 0.1 Mg/Hr Patch) 1 patch TD DAILY [facility] Last Admin: 07/07/17 11:32 Dose: Not Given Ondansetron HCl (Zofran Inj) 4 mg IVP Q6 PRN PRN Reason: Nausea/Vomiting Pantoprazole Sodium (Protonix Inj) 40 mg IVP DAILY [facility] Last Admin: 07/07/17 11:19 Dose: 40 mg Zolpidem Tartrate (Ambien) 5 mg PO HS PRN PRN Reason: Insomnia - Labs Labs: 07/08/17 07:11 07/08/17 07:11 PT 16.1 SECONDS (9.7-12.2) H 07/05/17 15:39 INR 1.5 07/05/17 15:39 APTT 29 SECONDS (21-34) 07/05/17 15:39 - Constitutional Appears: No Acute Distress - Eye Exam Eye Exam: Normal appearance - ENT Exam ENT Exam: Mucous Membranes Moist - Neck Exam Neck Exam: Full ROM. absent: Lymphadenopathy, Thyromegaly - Respiratory Exam Respiratory Exam: Decreased Breath Sounds. absent: Rales, Rhonchi, Wheezes - Cardiovascular Exam Cardiovascular Exam: +S1, +S2. absent: Gallop, REGULAR RHYTHM - GI/Abdominal Exam GI & Abdominal Exam: Soft. absent: Tenderness, Normal Bowel Sounds - Extremities Exam Extremities Exam: Normal Capillary Refill. absent: Calf Tenderness, Joint Swelling Assessment and Plan - Assessment and Plan (Free Text) Assessment: Abd wall abscess s/p Surgery HTN Cont meds/
[2017-07-08] MEDS: Nitroglycerin 0.1 mg/hr Top Patch TD SCH (11:04)
--- NOTE | 2017-07-08 17:04 | CP.PCM.PN ---
Subjective - Date & Time of Evaluation Date of Evaluation: 07/08/17 Time of Evaluation: 09:00 - Subjective Subjective: cultures noted merrem added to vanco cont wound care Objective - Vital Signs/Intake and Output Vital Signs (last 24 hours): Temp Pulse Resp BP Pulse Ox 99.4 F 83 20 133/78 95 07/08/17 15:00 07/08/17 15:00 07/08/17 15:00 07/08/17 15:00 07/08/17 15:00 Intake and Output: 07/08/17 07/08/17 06:59 18:59 Intake Total 1200 1860 Output Total 450 950 Balance 750 910 - Medications Medications: Current Medications Acetaminophen (Tylenol 325mg Tab) 650 mg PO Q6 PRN PRN Reason: Fever >100.4 F Last Admin: 07/07/17 21:41 Dose: 650 mg Heparin Sodium (Porcine) (Heparin) 5,000 units SC Q8 [facility] Last Admin: 07/08/17 13:58 Dose: 5,000 units Hydromorphone HCl (Dilaudid) 0.5 mg IVP Q4H PRN PRN Reason: Pain, moderate (4-7) Last Admin: 07/08/17 15:05 Dose: 0.5 mg Vancomycin/Sodium Chloride (Vancomycin 1 Gm/Ns 200 Ml) 1 gm in 200 mls @ 133 mls/hr IVPB Q12H [facility] PRN Reason: Protocol Stop: 07/11/17 04:01 Last Admin: 07/08/17 16:03 Dose: 133 mls/hr Lactated Ringer's (Lactated Ringer's) 1,000 mls @ 150 mls/hr IV .Q6H40M [facility] Last Admin: 07/08/17 15:08 Dose: 150 mls/hr Nitroglycerin (Nitro-Dur 0.1 Mg/Hr Patch) 1 patch TD DAILY [facility] Last Admin: 07/08/17 11:04 Dose: 1 patch Ondansetron HCl (Zofran Inj) 4 mg IVP Q6 PRN PRN Reason: Nausea/Vomiting Pantoprazole Sodium (Protonix Inj) 40 mg IVP DAILY [facility] Last Admin: 07/08/17 11:03 Dose: 40 mg Zolpidem Tartrate (Ambien) 5 mg PO HS PRN PRN Reason: Insomnia - Labs Labs: 07/08/17 07:11 07/08/17 07:11 PT 16.1 SECONDS (9.7-12.2) H 07/05/17 15:39 INR 1.5 07/05/17 15:39 APTT 29 SECONDS (21-34) 07/05/17 15:39 Assessment and Plan (1) Intra-abdominal abscess Status: Acute (2) S/P hernia repair Status: Acute
[2017-07-09] MEDS: HYDROmorphone 0.5 mg/0.5 ml ISec IVP PRN ×2 (00:18→04:23)
[2017-07-09] MEDS: Lactated Ringer's 1,000 ML IV SCH ×2 (01:15→04:22)
[2017-07-09] MEDS: Vancomycin 1 gm/NS 200 ml 1 GM/200 ML BAG IVPB SCH (04:23)
[2017-07-09] MEDS ORDERED: DiphenhydrAMINE 50 mg/ml Inj IVP STA (07:37)
--- NOTE | 2017-07-09 07:43 | CP.PCM.PN ---
Subjective - Date & Time of Evaluation Date of Evaluation: 07/09/17 Time of Evaluation: 07:41 - Subjective Subjective: General surgery progress note for Dr. Hernandez covering for Dr. Snehal Grossman, PGY-1 Pt S & E at bedside at 0705 Pt reports NGT was dislodged overnight while turning in bed. Denies N & V, F & C, tolerating CLD. Is currently OOBTC. Reports insomnia overnight, flatus. Desiring to get some sleep. Objective - Vital Signs/Intake and Output Vital Signs (last 24 hours): Temp Pulse Resp BP Pulse Ox 98.6 F 77 20 136/89 96 07/08/17 23:55 07/08/17 23:55 07/08/17 23:55 07/08/17 23:55 07/08/17 23:55 - Medications Medications: Current Medications Acetaminophen (Tylenol 325mg Tab) 650 mg PO Q6 PRN PRN Reason: Fever >100.4 F Last Admin: 07/08/17 21:53 Dose: 650 mg Heparin Sodium (Porcine) (Heparin) 5,000 units SC Q8 [facility] Last Admin: 07/09/17 06:39 Dose: 5,000 units Hydromorphone HCl (Dilaudid) 0.5 mg IVP Q4H PRN PRN Reason: Pain, moderate (4-7) Last Admin: 07/09/17 04:23 Dose: 0.5 mg Vancomycin/Sodium Chloride (Vancomycin 1 Gm/Ns 200 Ml) 1 gm in 200 mls @ 133 mls/hr IVPB Q12H [facility] PRN Reason: Protocol Stop: 07/11/17 04:01 Last Admin: 07/09/17 04:23 Dose: 133 mls/hr Lactated Ringer's (Lactated Ringer's) 1,000 mls @ 150 mls/hr IV .Q6H40M [facility] Last Admin: 07/09/17 04:22 Dose: 150 mls/hr Meropenem 1 gm/ Sodium (Chloride) 100 mls @ 100 mls/hr IVPB Q8H [facility] PRN Reason: Protocol Nitroglycerin (Nitro-Dur 0.1 Mg/Hr Patch) 1 patch TD DAILY [facility] Last Admin: 07/08/17 11:04 Dose: 1 patch Ondansetron HCl (Zofran Inj) 4 mg IVP Q6 PRN PRN Reason: Nausea/Vomiting Pantoprazole Sodium (Protonix Inj) 40 mg IVP DAILY [facility] Last Admin: 07/08/17 11:03 Dose: 40 mg Zolpidem Tartrate (Ambien) 5 mg PO HS [facility] - Labs Labs: 07/08/17 07:11 07/08/17 07:11 PT 16.1 SECONDS (9.7-12.2) H 07/05/17 15:39 INR 1.5 07/05/17 15:39 APTT 29 SECONDS (21-34) 07/05/17 15:39 - Constitutional Appears: Non-toxic, No Acute Distress - Head Exam Head Exam: ATRAUMATIC, NORMAL INSPECTION, NORMOCEPHALIC - Eye Exam Eye Exam: EOMI, Normal appearance - ENT Exam ENT Exam: Mucous Membranes Moist, Normal Exam - Neck Exam Neck Exam: Full ROM, Normal Inspection - Respiratory Exam Respiratory Exam: NORMAL BREATHING PATTERN - Cardiovascular Exam Cardiovascular Exam: REGULAR RHYTHM, +S1, +S2 - GI/Abdominal Exam GI & Abdominal Exam: Soft, Tenderness (around surgical incision site- dressing in place - moderate amount of dried sanguinous strike through, especially on distal aspect). absent: Distended, Firm, Guarding, Rigid, Hernia - Extremities Exam Extremities Exam: Normal Inspection. absent: Pedal Edema - Neurological Exam Neurological Exam: Alert, Awake, CN II-XII Intact, Oriented x3 - Psychiatric Exam Psychiatric exam: Normal Affect, Normal Mood - Skin Skin Exam: Dry, Intact, Normal Color, Warm Assessment and Plan - Assessment and Plan (Free Text) Assessment: 51M POD#3 s/p removal of infected mesh Plan: NGT out- no need to re-insert FLD today Benadryl x 1 Ambien [facility] OOBTC Ambulate Encourage IS use when awake Will change dressing today Will DW attending Ngoc, PGY-1
[2017-07-09] MEDS: Nitroglycerin 0.1 mg/hr Top Patch TD SCH (09:46)
[2017-07-09] MEDS: Meropenem 1 GM in Sodium Chloride 0.9% 100 ML IVPB SCH (18:11)
[2017-07-10] MEDS: Meropenem 1 GM in Sodium Chloride 0.9% 100 ML IVPB SCH ×3 (02:38→18:31)
--- NOTE | 2017-07-10 07:43 | CP.PCM.PN ---
Subjective - Date & Time of Evaluation Date of Evaluation: 07/10/17 Time of Evaluation: 07:39 - Subjective Subjective: Surgery: Dr. Hernandez Patient states pain is controlled. He is having difficulty sleeping. Tolerating diet. +BM. Denies fever, n/v. Objective - Vital Signs/Intake and Output Vital Signs (last 24 hours): Temp Pulse Resp BP Pulse Ox 99.2 F 80 20 149/85 95 07/09/17 23:55 07/09/17 23:55 07/09/17 23:55 07/09/17 23:55 07/09/17 23:55 Intake and Output: 07/10/17 07/10/17 06:59 18:59 Intake Total 300 Output Total 500 Balance -200 - Medications Medications: Current Medications Acetaminophen (Tylenol 325mg Tab) 650 mg PO Q6 PRN PRN Reason: Fever >100.4 F Last Admin: 07/08/17 21:53 Dose: 650 mg Famotidine (Pepcid) 20 mg PO DAILY [facility] Last Admin: 07/09/17 09:43 Dose: 20 mg Heparin Sodium (Porcine) (Heparin) 5,000 units SC Q8 [facility] Last Admin: 07/10/17 05:58 Dose: 5,000 units Meropenem 1 gm/ Sodium (Chloride) 100 mls @ 100 mls/hr IVPB Q8H [facility] PRN Reason: Protocol Last Admin: 07/10/17 02:38 Dose: 100 mls/hr Vancomycin HCl 1,000 mg/ (Sodium Chloride) 250 mls @ 166.6 mls/hr IVPB Q12H [facility] PRN Reason: Protocol Ibuprofen (Motrin Tab) 600 mg PO TID PRN PRN Reason: Pain, moderate (4-7) Nitroglycerin (Nitro-Dur 0.1 Mg/Hr Patch) 1 patch TD DAILY [facility] Last Admin: 07/09/17 09:46 Dose: 1 patch Ondansetron HCl (Zofran Inj) 4 mg IVP Q6 PRN PRN Reason: Nausea/Vomiting Zolpidem Tartrate (Ambien) 5 mg PO HS [facility] Last Admin: 07/09/17 22:00 Dose: Not Given - Labs Labs: 07/08/17 07:11 07/08/17 07:11 PT 16.1 SECONDS (9.7-12.2) H 07/05/17 15:39 INR 1.5 07/05/17 15:39 APTT 29 SECONDS (21-34) 07/05/17 15:39 - Constitutional Appears: Non-toxic, No Acute Distress - Head Exam Head Exam: ATRAUMATIC, NORMOCEPHALIC - Eye Exam Eye Exam: EOMI, Normal appearance - ENT Exam ENT Exam: Mucous Membranes Moist - Respiratory Exam Respiratory Exam: NORMAL BREATHING PATTERN. absent: Respiratory Distress - Cardiovascular Exam Cardiovascular Exam: REGULAR RHYTHM. absent: Tachycardia - GI/Abdominal Exam GI & Abdominal Exam: Soft, Tenderness (elva-incisional which is appropriate ). absent: Distended, Guarding, Rebound Assessment and Plan - Assessment and Plan (Free Text) Assessment: 51 y/o male s/p VHR revision 2/2 infected mesh POD4 Plan: -Vanco Merrem per ID -d/c toradol -motrin/tylenol for pain -oob -advance to reg diet this am -IS use -complete full course of IV abx prior to d/c home -further recs per Dr. Hernandez covering for Dr. Ivonne Ojeda PGY3
[2017-07-10 07:58] LABS: BASO % 0.8 % (0.0-2.0); EOS # 0.6 K/uL (0.0-0.7); EOS % 11.8 % (0.0-4.0); HEMOGLOBIN 10.4 g/dL (12.0-18.0); MEAN CELL VOLUME 88.7 fL (80.0-94.0); MEAN CORPUSCULAR HGB CONC 33.9 g/dL (33.0-37.0); MEAN PLATELET VOLUME 7.6 fL (7.2-11.7); MONO # 0.5 K/uL (0.0-0.8); MONO % 10.3 % (0.0-10.0); NEUT # 2.8 K/uL (1.8-7.0); NEUT % 57.1 % (50.0-75.0); NRBC % 0.1 % (0.0-2.0); RBC 3.48 Mil/uL (4.40-5.90); RED CELL DISTRIBUTION WIDTH 14.1 % (11.5-14.5); WHITE BLOOD COUNT 4.9 K/uL (4.8-10.8)
[2017-07-10 08:20] LABS: BLOOD UREA NITROGEN 10 mg/dL (9-20); CALCIUM 7.9 mg/dl (8.6-10.4); GFR AFRICAN-AMERICAN > 60; GFR NON-AFRICAN AMERICAN > 60
[2017-07-10] MEDS: Vancomycin 1 gm/NS 200 ml 1 GM/200 ML BAG IVPB SCH ×2 (08:29→20:18)
[2017-07-10] MEDS: Nitroglycerin 0.1 mg/hr Top Patch TD SCH (09:58)
[2017-07-10 17:18] VITALS: RESP 20
--- NOTE | 2017-07-10 17:48 | CP.PCM.PN ---
Subjective - Date & Time of Evaluation Date of Evaluation: 07/10/17 Time of Evaluation: 08:00 - Subjective Subjective: afeb oob to chair Objective - Vital Signs/Intake and Output Vital Signs (last 24 hours): Temp Pulse Resp BP Pulse Ox 98.4 F 65 20 127/67 97 07/10/17 15:10 07/10/17 15:10 07/10/17 15:10 07/10/17 15:10 07/10/17 15:10 Intake and Output: 07/10/17 07/10/17 06:59 18:59 Intake Total 300 Output Total 500 Balance -200 - Medications Medications: Current Medications Acetaminophen (Tylenol 325mg Tab) 650 mg PO Q6 PRN PRN Reason: Fever >100.4 F Last Admin: 07/08/17 21:53 Dose: 650 mg Diphenhydramine HCl (Benadryl) 25 mg PO Q6 PRN PRN Reason: Insomnia Famotidine (Pepcid) 20 mg PO DAILY [facility] Last Admin: 07/10/17 09:58 Dose: 20 mg Heparin Sodium (Porcine) (Heparin) 5,000 units SC Q8 [facility] Last Admin: 07/10/17 14:15 Dose: Not Given Meropenem 1 gm/ Sodium (Chloride) 100 mls @ 100 mls/hr IVPB Q8H [facility] PRN Reason: Protocol Last Admin: 07/10/17 09:59 Dose: 100 mls/hr Vancomycin/Sodium Chloride (Vancomycin 1 Gm/Ns 200 Ml) 1 gm in 200 mls @ 166.6 mls/hr IVPB Q12H [facility] PRN Reason: Protocol Stop: 07/15/17 08:01 Last Admin: 07/10/17 08:29 Dose: 166.6 mls/hr Ibuprofen (Motrin Tab) 600 mg PO TID PRN PRN Reason: Pain, moderate (4-7) Last Admin: 07/10/17 13:50 Dose: 600 mg Nitroglycerin (Nitro-Dur 0.1 Mg/Hr Patch) 1 patch TD DAILY [facility] Last Admin: 07/10/17 09:58 Dose: 1 patch Ondansetron HCl (Zofran Inj) 4 mg IVP Q6 PRN PRN Reason: Nausea/Vomiting Zolpidem Tartrate (Ambien) 5 mg PO HS [facility] Last Admin: 07/09/17 22:00 Dose: Not Given - Labs Labs: 07/10/17 07:45 07/10/17 08:01 PT 16.1 SECONDS (9.7-12.2) H 07/05/17 15:39 INR 1.5 07/05/17 15:39 APTT 29 SECONDS (21-34) 07/05/17 15:39 - Constitutional Appears: Non-toxic, Chronically Ill - Head Exam Head Exam: ATRAUMATIC, NORMAL INSPECTION, NORMOCEPHALIC - Eye Exam Eye Exam: EOMI, Normal appearance, PERRL Pupil Exam: NORMAL ACCOMODATION, PERRL - ENT Exam ENT Exam: Mucous Membranes Moist, Normal Exam - Neck Exam Neck Exam: Full ROM, Normal Inspection. absent: Lymphadenopathy - Respiratory Exam Respiratory Exam: Clear to Ausculation Bilateral, NORMAL BREATHING PATTERN - Cardiovascular Exam Cardiovascular Exam: REGULAR RHYTHM, +S1, +S2. absent: Murmur - GI/Abdominal Exam GI & Abdominal Exam: Soft, Tenderness, Hypoactive Bowel Sounds Additional comments: midline incision - Rectal Exam Rectal Exam: NORMAL INSPECTION - Exam Exam: Circumcision, NORMAL INSPECTION - Extremities Exam Extremities Exam: Full ROM, Normal Capillary Refill, Normal Inspection. absent : Joint Swelling, Pedal Edema - Back Exam Back Exam: NORMAL INSPECTION - Neurological Exam Neurological Exam: Alert, Awake, CN II-XII Intact, Normal Gait, Oriented x3 - Psychiatric Exam Psychiatric exam: Normal Affect, Normal Mood - Skin Skin Exam: Dry, Intact, Normal Color, Warm Assessment and Plan (1) Intra-abdominal abscess Status: Acute (2) S/P hernia repair Status: Acute - Assessment and Plan (Free Text) Assessment: recurrent mesh infections cont iv then po rx follow up with surg
[2017-07-11] MEDS: Meropenem 1 GM in Sodium Chloride 0.9% 100 ML IVPB SCH ×3 (02:36→18:10)
[2017-07-11 07:08] LABS: EOS # 0.5 K/uL (0.0-0.7); EOS % 9.5 % (0.0-4.0); HEMOGLOBIN 10.6 g/dL (12.0-18.0); LYMPH # 1.1 K/uL (1.0-4.3); LYMPH % 22.1 % (20.0-40.0); MEAN CELL VOLUME 87.7 fL (80.0-94.0); MEAN CORPUSCULAR HEMOGLOBIN 29.9 pg (27.0-31.0); MEAN PLATELET VOLUME 7.6 fL (7.2-11.7); MONO # 0.5 K/uL (0.0-0.8); NEUT # 2.8 K/uL (1.8-7.0); NEUT % 57.4 % (50.0-75.0); NRBC % 0.2 % (0.0-2.0); RBC 3.56 Mil/uL (4.40-5.90); RED CELL DISTRIBUTION WIDTH 14.1 % (11.5-14.5); WHITE BLOOD COUNT 4.9 K/uL (4.8-10.8)
[2017-07-11] MEDS: Vancomycin 1 gm/NS 200 ml 1 GM/200 ML BAG IVPB SCH ×2 (08:02→19:15)
[2017-07-11 08:03] LABS: BLOOD UREA NITROGEN 13 mg/dL (9-20); GFR AFRICAN-AMERICAN > 60; GFR NON-AFRICAN AMERICAN > 60
--- NOTE | 2017-07-11 09:21 | CP.PCM.PN ---
Subjective - Date & Time of Evaluation Date of Evaluation: 07/11/17 Time of Evaluation: 09:18 - Subjective Subjective: General Surgery Progress Note for Dr. Hernandez This 51M was seen and evaluated this AM at bedside. Yesterday he had drainage from the distal aspect of his wound. The skin was opened at the lower aspect and drainage was encouraged. Otherwise no acute events overnight. Patient is passing gas and moving his bowels. He is ambulating, denies chest pain or SOB. He is tolerating his liquid diet. Objective - Vital Signs/Intake and Output Vital Signs (last 24 hours): Temp Pulse Resp BP Pulse Ox 98.0 F 61 20 138/86 98 07/11/17 07:25 07/11/17 07:25 07/11/17 07:25 07/11/17 07:25 07/11/17 07:25 Intake and Output: 07/11/17 07/11/17 06:59 18:59 Intake Total 340 Output Total 100 Balance 240 - Medications Medications: Current Medications Acetaminophen (Tylenol 325mg Tab) 650 mg PO Q6 PRN PRN Reason: Fever >100.4 F Last Admin: 07/08/17 21:53 Dose: 650 mg Diphenhydramine HCl (Benadryl) 25 mg PO Q6 PRN PRN Reason: Insomnia Famotidine (Pepcid) 20 mg PO DAILY [facility] Last Admin: 07/10/17 09:58 Dose: 20 mg Meropenem 1 gm/ Sodium (Chloride) 100 mls @ 100 mls/hr IVPB Q8H [facility] PRN Reason: Protocol Last Admin: 07/11/17 02:36 Dose: 100 mls/hr Vancomycin/Sodium Chloride (Vancomycin 1 Gm/Ns 200 Ml) 1 gm in 200 mls @ 166.6 mls/hr IVPB Q12H [facility] PRN Reason: Protocol Stop: 07/15/17 08:01 Last Admin: 07/11/17 08:02 Dose: 166.6 mls/hr Ibuprofen (Motrin Tab) 600 mg PO TID PRN PRN Reason: Pain, moderate (4-7) Last Admin: 07/10/17 13:50 Dose: 600 mg Nitroglycerin (Nitro-Dur 0.1 Mg/Hr Patch) 1 patch TD DAILY [facility] Last Admin: 07/10/17 09:58 Dose: 1 patch Ondansetron HCl (Zofran Inj) 4 mg IVP Q6 PRN PRN Reason: Nausea/Vomiting Zolpidem Tartrate (Ambien) 5 mg PO HS [facility] Last Admin: 07/10/17 22:01 Dose: 5 mg - Labs Labs: 07/11/17 07:01 07/11/17 07:01 PT 16.1 SECONDS (9.7-12.2) H 07/05/17 15:39 INR 1.5 07/05/17 15:39 APTT 29 SECONDS (21-34) 07/05/17 15:39 - Constitutional Appears: Non-toxic, No Acute Distress - Head Exam Head Exam: ATRAUMATIC, NORMOCEPHALIC - Eye Exam Eye Exam: EOMI - ENT Exam ENT Exam: Mucous Membranes Moist - Respiratory Exam Respiratory Exam: NORMAL BREATHING PATTERN - Cardiovascular Exam Cardiovascular Exam: +S1, +S2 - GI/Abdominal Exam GI & Abdominal Exam: Soft. absent: Distended, Firm, Guarding, Rigid, Tenderness Additional comments: Dressing with significant serosanguinous drainage changed this AM. - Neurological Exam Neurological Exam: Alert, Awake - Psychiatric Exam Psychiatric exam: Normal Affect, Normal Mood - Skin Skin Exam: Dry, Intact Assessment and Plan - Assessment and Plan (Free Text) Assessment: 51M POD#5 s/p removal of infected mesh from ventral hernia repair Vital signs stable No Leukocytosis Tolerating Liquids Ambulating Plan: Advance diet to regular Continue ABX Continue DVT PPX Monitor Wound output dressing changes PRN D/W Dr. David Aragon PGY2
[2017-07-11] MEDS: Nitroglycerin 0.1 mg/hr Top Patch TD SCH (10:02)
--- NOTE | 2017-07-11 10:59 | CP.PCM.PN ---
Subjective - Date & Time of Evaluation Date of Evaluation: 07/11/17 Time of Evaluation: 10:37 - Subjective Subjective: Pt feels well; no CP,no SOB, no cough, no diuarrhea, no n/v Objective - Vital Signs/Intake and Output Vital Signs (last 24 hours): Temp Pulse Resp BP Pulse Ox 98.0 F 61 20 138/86 98 07/11/17 07:25 07/11/17 07:25 07/11/17 07:25 07/11/17 07:25 07/11/17 07:25 Intake and Output: 07/11/17 07/11/17 06:59 18:59 Intake Total 340 Output Total 100 Balance 240 - Medications Medications: Current Medications Acetaminophen (Tylenol 325mg Tab) 650 mg PO Q6 PRN PRN Reason: Fever >100.4 F Last Admin: 07/08/17 21:53 Dose: 650 mg Diphenhydramine HCl (Benadryl) 25 mg PO Q6 PRN PRN Reason: Insomnia Famotidine (Pepcid) 20 mg PO DAILY [facility] Last Admin: 07/11/17 10:02 Dose: 20 mg Meropenem 1 gm/ Sodium (Chloride) 100 mls @ 100 mls/hr IVPB Q8H [facility] PRN Reason: Protocol Last Admin: 07/11/17 10:02 Dose: 100 mls/hr Vancomycin/Sodium Chloride (Vancomycin 1 Gm/Ns 200 Ml) 1 gm in 200 mls @ 166.6 mls/hr IVPB Q12H [facility] PRN Reason: Protocol Stop: 07/15/17 08:01 Last Admin: 07/11/17 08:02 Dose: 166.6 mls/hr Ibuprofen (Motrin Tab) 600 mg PO TID PRN PRN Reason: Pain, moderate (4-7) Last Admin: 07/10/17 13:50 Dose: 600 mg Nitroglycerin (Nitro-Dur 0.1 Mg/Hr Patch) 1 patch TD DAILY [facility] Last Admin: 07/11/17 10:02 Dose: 1 patch Ondansetron HCl (Zofran Inj) 4 mg IVP Q6 PRN PRN Reason: Nausea/Vomiting Zolpidem Tartrate (Ambien) 5 mg PO [facility] Last Admin: 07/10/17 22:01 Dose: 5 mg - Labs Labs: 07/11/17 07:01 05/28/18 07:01 PT 16.1 SECONDS (9.7-12.2) H 07/05/17 15:39 INR 1.5 07/05/17 15:39 APTT 29 SECONDS (21-34) 07/05/17 15:39 - Constitutional Appears: No Acute Distress - Eye Exam Eye Exam: Normal appearance - ENT Exam ENT Exam: Mucous Membranes Moist - Neck Exam Neck Exam: Full ROM. absent: Normal Inspection, Thyromegaly - Respiratory Exam Respiratory Exam: Decreased Breath Sounds. absent: Rales, Rhonchi, Wheezes - Cardiovascular Exam Cardiovascular Exam: REGULAR RHYTHM, +S1, +S2. absent: Gallop, Murmur - GI/Abdominal Exam GI & Abdominal Exam: Soft, Tenderness, Normal Bowel Sounds - Extremities Exam Extremities Exam: Full ROM, Normal Capillary Refill. absent: Calf Tenderness, Joint Swelling, Pedal Edema Assessment and Plan - Assessment and Plan (Free Text) Plan: abdominal wall Abscess s/p surgery HTN Cont meds/ care
[2017-07-12] MEDS: Meropenem 1 GM in Sodium Chloride 0.9% 100 ML IVPB SCH ×2 (02:14→10:18)
--- NOTE | 2017-07-12 08:19 | CP.PCM.PN ---
Subjective - Date & Time of Evaluation Date of Evaluation: 07/12/17 Time of Evaluation: 06:40 - Subjective Subjective: Surgery- Dr. Hernandez (Covering for Dr. Coronado) Patient seen and examined at bedside this AM. No acute events overnight. Dressing last changed yesterday at 1600 w/ serous drainage. Wound draining on the inferior aspect of incision. Denies, fevers, chills, chest pain, shortness of breath, nausea vomiting, diarrhea Objective - Vital Signs/Intake and Output Vital Signs (last 24 hours): Temp Pulse Resp BP Pulse Ox 98.2 F 63 20 144/87 98 07/12/17 07:35 07/12/17 07:35 07/12/17 07:35 07/12/17 07:35 07/12/17 07:35 Intake and Output: 07/12/17 07/12/17 06:59 18:59 Intake Total 350 Balance 350 - Medications Medications: Current Medications Acetaminophen (Tylenol 325mg Tab) 650 mg PO Q6 PRN PRN Reason: Fever >100.4 F Last Admin: 07/08/17 21:53 Dose: 650 mg Diphenhydramine HCl (Benadryl) 25 mg PO Q6 PRN PRN Reason: Insomnia Famotidine (Pepcid) 20 mg PO DAILY [facility] Last Admin: 07/11/17 10:02 Dose: 20 mg Heparin Sodium (Porcine) (Heparin) 5,000 units SC Q12 [facility] Last Admin: 07/11/17 22:04 Dose: 5,000 units Meropenem 1 gm/ Sodium (Chloride) 100 mls @ 100 mls/hr IVPB Q8H [facility] PRN Reason: Protocol Last Admin: 07/12/17 02:14 Dose: 100 mls/hr Vancomycin/Sodium Chloride (Vancomycin 1 Gm/Ns 200 Ml) 1 gm in 200 mls @ 166.6 mls/hr IVPB Q12H [facility] PRN Reason: Protocol Stop: 07/15/17 08:01 Last Admin: 07/11/17 19:15 Dose: 166.6 mls/hr Ibuprofen (Motrin Tab) 600 mg PO TID PRN PRN Reason: Pain, moderate (4-7) Last Admin: 07/10/17 13:50 Dose: 600 mg Nitroglycerin (Nitro-Dur 0.1 Mg/Hr Patch) 1 patch TD DAILY [facility] Last Admin: 07/11/17 10:02 Dose: 1 patch Ondansetron HCl (Zofran Inj) 4 mg IVP Q6 PRN PRN Reason: Nausea/Vomiting Zolpidem Tartrate (Ambien) 5 mg PO HS [facility] Last Admin: 07/11/17 22:04 Dose: 5 mg - Labs Labs: 07/11/17 07:01 07/11/17 07:01 PT 16.1 SECONDS (9.7-12.2) H 07/05/17 15:39 INR 1.5 07/05/17 15:39 APTT 29 SECONDS (21-34) 07/05/17 15:39 - Constitutional Appears: Non-toxic, No Acute Distress - Head Exam Head Exam: ATRAUMATIC - Eye Exam Eye Exam: EOMI. absent: Scleral icterus - ENT Exam ENT Exam: Mucous Membranes Moist - Respiratory Exam Respiratory Exam: NORMAL BREATHING PATTERN. absent: Accessory Muscle Use, Respiratory Distress - Cardiovascular Exam Cardiovascular Exam: +S1, +S2. absent: Bradycardia, Tachycardia - Extremities Exam Extremities Exam: Normal Inspection. absent: Calf Tenderness - Neurological Exam Neurological Exam: Alert, Awake, Oriented x3 - Psychiatric Exam Psychiatric exam: Normal Affect - Skin Skin Exam: Intact, Warm Assessment and Plan - Assessment and Plan (Free Text) Assessment: 51M s/p removal of infected mesh POD6 Plan: - continue ABx - dressing change PRN - monitor incision - encourage OOB and IC use - pain control & Anti-emetic PRN - regular diet - discussed w/ Dr. Hernandez Surgical attending PGY1
[2017-07-12] MEDS: Vancomycin 1 gm/NS 200 ml 1 GM/200 ML BAG IVPB SCH (08:38)
--- NOTE | 2017-07-12 08:50 | CP.PCM.PN ---
Subjective - Date & Time of Evaluation Date of Evaluation: 07/12/17 Time of Evaluation: 08:25 - Subjective Subjective: Pt feels weel except has a lot of drainage in his wound; mpore "liquidy/ not pussy". No CP, no SOB, no edema, no cough, no duarrhea, no n/v; no urinary complain Appetite is good Objective - Vital Signs/Intake and Output Vital Signs (last 24 hours): Temp Pulse Resp BP Pulse Ox 98.2 F 63 20 144/87 98 07/12/17 07:35 07/12/17 07:35 07/12/17 07:35 07/12/17 07:35 07/12/17 07:35 Intake and Output: 07/12/17 07/12/17 06:59 18:59 Intake Total 350 Balance 350 - Medications Medications: Current Medications Acetaminophen (Tylenol 325mg Tab) 650 mg PO Q6 PRN PRN Reason: Fever >100.4 F Last Admin: 07/08/17 21:53 Dose: 650 mg Diphenhydramine HCl (Benadryl) 25 mg PO Q6 PRN PRN Reason: Insomnia Famotidine (Pepcid) 20 mg PO DAILY [facility] Last Admin: 07/11/17 10:02 Dose: 20 mg Heparin Sodium (Porcine) (Heparin) 5,000 units SC Q12 [facility] Last Admin: 07/11/17 22:04 Dose: 5,000 units Meropenem 1 gm/ Sodium (Chloride) 100 mls @ 100 mls/hr IVPB Q8H [facility] PRN Reason: Protocol Last Admin: 07/12/17 02:14 Dose: 100 mls/hr Vancomycin/Sodium Chloride (Vancomycin 1 Gm/Ns 200 Ml) 1 gm in 200 mls @ 166.6 mls/hr IVPB Q12H [facility] PRN Reason: Protocol Stop: 07/15/17 08:01 Last Admin: 07/12/17 08:38 Dose: 166.6 mls/hr Ibuprofen (Motrin Tab) 600 mg PO TID PRN PRN Reason: Pain, moderate (4-7) Last Admin: 07/10/17 13:50 Dose: 600 mg Lisinopril (Zestril) 10 mg PO DAILY [facility] Ondansetron HCl (Zofran Inj) 4 mg IVP Q6 PRN PRN Reason: Nausea/Vomiting Zolpidem Tartrate (Ambien) 5 mg PO HS [facility] Last Admin: 07/11/17 22:04 Dose: 5 mg - Labs Labs: 07/11/17 07:01 07/11/17 07:01 PT 16.1 SECONDS (9.7-12.2) H 07/05/17 15:39 INR 1.5 07/05/17 15:39 APTT 29 SECONDS (21-34) 07/05/17 15:39 - Constitutional Appears: No Acute Distress - Eye Exam Eye Exam: Normal appearance - ENT Exam ENT Exam: Mucous Membranes Moist - Neck Exam Neck Exam: Full ROM. absent: Lymphadenopathy, Normal Inspection - Respiratory Exam Respiratory Exam: Decreased Breath Sounds. absent: Rales, Rhonchi, Wheezes - Cardiovascular Exam Cardiovascular Exam: +S1, +S2. absent: Gallop, REGULAR RHYTHM, Murmur - GI/Abdominal Exam GI & Abdominal Exam: Soft. absent: Tenderness - Extremities Exam Extremities Exam: Full ROM, Normal Capillary Refill. absent: Calf Tenderness, Joint Swelling, Pedal Edema Assessment and Plan - Assessment and Plan (Free Text) Plan: Abd Wall abscess s/p removal of mesh HTN Cont wound care On IV antibiotic c/o ID Change ack to p.o. meds
--- NOTE | 2017-07-12 11:04 | CP.PCM.PN ---
Subjective - Date & Time of Evaluation Date of Evaluation: 07/12/17 Time of Evaluation: 08:00 - Subjective Subjective: WOUND HEALING WELL RETENTION SUTURES IN PLACE FOR SWITCH TO PO RX FOLLOW UP IN CLINIC Objective - Vital Signs/Intake and Output Vital Signs (last 24 hours): Temp Pulse Resp BP Pulse Ox 98.2 F 63 20 144/87 98 07/12/17 07:35 07/12/17 07:35 07/12/17 07:35 07/12/17 07:35 07/12/17 07:35 Intake and Output: 07/12/17 07/12/17 06:59 18:59 Intake Total 350 Balance 350 - Medications Medications: Current Medications Acetaminophen (Tylenol 325mg Tab) 650 mg PO Q6 PRN PRN Reason: Fever >100.4 F Last Admin: 07/08/17 21:53 Dose: 650 mg Diphenhydramine HCl (Benadryl) 25 mg PO Q6 PRN PRN Reason: Insomnia Famotidine (Pepcid) 20 mg PO DAILY [facility] Last Admin: 07/12/17 10:19 Dose: 20 mg Ferrous Sulfate (Feosol) 325 mg PO DAILY [facility] Last Admin: 07/12/17 10:19 Dose: 325 mg Heparin Sodium (Porcine) (Heparin) 5,000 units SC Q12 [facility] Last Admin: 07/12/17 10:19 Dose: 5,000 units Meropenem 1 gm/ Sodium (Chloride) 100 mls @ 100 mls/hr IVPB Q8H [facility] PRN Reason: Protocol Last Admin: 07/12/17 10:18 Dose: 100 mls/hr Vancomycin/Sodium Chloride (Vancomycin 1 Gm/Ns 200 Ml) 1 gm in 200 mls @ 166.6 mls/hr IVPB Q12H [facility] PRN Reason: Protocol Stop: 07/15/17 08:01 Last Admin: 07/12/17 08:38 Dose: 166.6 mls/hr Ibuprofen (Motrin Tab) 600 mg PO TID PRN PRN Reason: Pain, moderate (4-7) Last Admin: 07/10/17 13:50 Dose: 600 mg Lisinopril (Zestril) 10 mg PO DAILY [facility] Last Admin: 07/12/17 10:19 Dose: 10 mg Ondansetron HCl (Zofran Inj) 4 mg IVP Q6 PRN PRN Reason: Nausea/Vomiting Zolpidem Tartrate (Ambien) 5 mg PO HS [facility] Last Admin: 07/11/17 22:04 Dose: 5 mg - Labs Labs: 07/11/17 07:01 07/11/17 07:01 PT 16.1 SECONDS (9.7-12.2) H 07/05/17 15:39 INR 1.5 07/05/17 15:39 APTT 29 SECONDS (21-34) 07/05/17 15:39 Assessment and Plan (1) Intra-abdominal abscess Status: Acute (2) S/P hernia repair Status: Acute
[2017-07-12 16:04] VITALS: BP 119/63; PULSE 60; TEMP 98; O2SAT 97
== END 2017-07-12 16:40 | disposition home or self-care (01) | DRG 907 ==
LOC: C.ER 15:03 → C.9E 15:19 → C.3T 16:43 → C.9S 07-06 13:23 → C.9I 07-06 14:21 → C.6T 07-07 15:50
PROVIDERS: ADMIT Surgery Vascular Surgery; ATTEND Surgery Vascular Surgery
PROC: 0W9G0ZZ Drainage of Peritoneal Cavity, Open Approach (ICD-10-PCS; 2017-07-06)
PROC: 0WPF0JZ Removal of Synthetic Substitute from Abdominal Wall, Open Approach (ICD-10-PCS; principal; 2017-07-06 11:15)
DX: T85.79XA Infection and inflammatory reaction due to other internal prosthetic devices, implants and grafts, initial encounter (principal); K65.1 Peritoneal abscess; Y83.2 Surgical operation with anastomosis, bypass or graft as the cause of abnormal reaction of the patient, or of later complication, without mention of misadventure at the time of the procedure; N18.9 Chronic kidney disease, unspecified; K66.0 Peritoneal adhesions (postprocedural) (postinfection); I12.9 Hypertensive chronic kidney disease with stage 1 through stage 4 chronic kidney disease, or unspecified chronic kidney disease; E03.9 Hypothyroidism, unspecified; G47.00 Insomnia, unspecified; Z87.442 Personal history of urinary calculi; Z87.891 Personal history of nicotine dependence; Z90.49 Acquired absence of other specified parts of digestive tract

== ENCOUNTER 2017-07-18 13:16 | Inpatient (IN) | payer BC ==
[2017-07-18 13:17] VITALS: BMI 32.5
[2017-07-18] MEDS ORDERED: Iohexol 240 (50 ml) PO STA (13:57)
--- NOTE | 2017-07-18 14:00 | C.PDOC ---
History Of Present Illness 51 year old male sent to the ER by Dr. Coronado for admission after patient began have purulent drainage from his surgical site on abdomen. Patient had hernia repair and bowel resection on 06/[address] Coronado. Denies fever or chills. Time Seen by Provider: 07/18/17 13:41 Chief Complaint (Nursing): Abnormal Skin Integrity History Per: Patient History/Exam Limitations: no limitations Onset/Duration Of Symptoms: Days Current Symptoms Are (Timing): Still Present Location Of Injury: Anterior: Abdomen Quality Of Symptoms: Draining Recent travel outside of the [place]: No Past Medical History Reviewed: Historical Data, Nursing Documentation, Vital Signs Vital Signs: Last Vital Signs Temp 97.7 F 07/18/17 16:24 Pulse 72 07/18/17 16:24 Resp 18 07/18/17 16:24 BP 120/79 07/18/17 16:24 Pulse Ox 99 07/18/17 16:24 - Medical History PMH: Anxiety, Diverticulitis, Gall Bladder Disease, HTN, Hypothyroidism (no longer needs meds), Kidney Stones (PASSED ON OWN), Chronic Kidney Disease Surgical History: Cholecystectomy, Endoscopy - [facility] Procedures DRAINAGE OF PERITONEAL CAVITY, OPEN APPROACH (07/05/17) LG BOWEL STOMA CLOSURE (12/18/12) OTH LYSIS-PERITONEAL ADHES (12/06/13) OTHER OPEN INCISIONAL HERNIA REPAIR WITH GRAFT OR PROSTHESIS (12/06/13) RELEASE SMALL INTESTINE, OPEN APPROACH (06/13/17) REMOVAL OF SYNTHETIC SUBSTITUTE FROM ABD WALL, OPEN APPROACH (07/05/17) REPAIR OF INTESTINE NEC (12/06/13) RESECTION OF SMALL INTESTINE, OPEN APPROACH (06/13/17) SUPPLEMENT ABDOMINAL WALL WITH SYNTH SUB, OPEN APPROACH (06/13/17) Family History: States: Unknown Family Hx - Social History Hx Alcohol Use: No Hx Substance Use: No - Immunization History Hx Tetanus Toxoid Vaccination: No Hx Influenza Vaccination: No Hx Pneumococcal Vaccination: No Review Of Systems Constitutional: Negative for: Fever, Chills Cardiovascular: Negative for: Chest Pain, Palpitations Respiratory: Negative for: Cough, Shortness of Breath Gastrointestinal: Positive for: Other (Drainage from surgical site). Negative for: Nausea, Vomiting Physical Exam - Physical Exam Appears: Non-toxic Skin: Warm, Dry Head: Atraumatic, Normacephalic Eye(s): bilateral: Normal Inspection, EOMI Oral Mucosa: Moist Chest: Symmetrical, No Tenderness Cardiovascular: Rhythm Regular Respiratory: Normal Breath Sounds, No Rales, No Rhonchi, No Wheezing Gastrointestinal/Abdominal: Soft, Tenderness, Other (Large stapled ventral wound with sutures intact; purulent drainage and surrounding mild erythema) Extremity: Bilateral: Atraumatic, Normal ROM Neurological/Psych: Oriented x3, Normal Speech ED Course And Treatment - Laboratory Results Result Diagrams: 07/18/17 14:17 07/18/17 14:17 Lab Interpretation: No Acute Changes O2 Sat by Pulse Oximetry: 100 (Room air) Pulse Ox Interpretation: Normal - CT Scan/US abd/pelvis Other Rad Studies (CT/US): Read By Radiologist, Radiology Report Reviewed CT/US Interpretation: Accession No. : [id number]. Patient Name / ID : RUSTAM SPRING / [id number]. Exam Date : 07/18/2017 15:54:41 ( Approved ). Study Comment : Sex / Age : M / 51Y. Creator : Julio Benson MD. Dictator : State [employer] Deputy Director : Artistic Associate : Julio Benson MD. Approver2 : Report Date : 07/18/2017 16:57:32. My Comment : . PROCEDURE: CT scan abdomen pelvis dated 07/18/2017. HISTORY: Abdominal pain and infected wound, s.p hernia repair. COMPARISON: Comparison made with CT scan 07/05/2017. TECHNIQUE: Contiguous axial images of the abdomen and pelvis performed following oral contrast material. Additional 2D sagittal and coronal reformats generated. Radiation dose: Total exam DLP = 904.99 mGy-cm. This CT exam was performed using one or more of the following dose reduction techniques: Automated exposure control, adjustment of the mA and/or kV according to patient size, and/or use of iterative reconstruction technique. . FINDINGS: LOWER THORAX: Lung bases clear. No infiltrate effusion or basilar pneumothorax. There is small hiatal hernia. LIVER: Liver is mildly enlarged measuring nearly 20 cm in CC dimension. No obvious hepatic mass collection or calcification. GALLBLADDER AND BILE DUCTS: Cholecystectomy. PANCREAS: Pancreas appears grossly unremarkable without masses collections or calcifications. SPLEEN: Spleen mildly enlarged measuring over 14 cm in AP dimension. ADRENALS: There are no adrenal lesions e. KIDNEYS AND URETERS: Small cysts upper and anterior lower pole right kidney again noted. BLADDER: Grossly unremarkable. Urinary bladder appears incompletely distended which presumably accounts slight thick-walled appearance. Muscular hypertrophy may contribute. REPRODUCTIVE: Unremarkable. APPENDIX: Not identified. BOWEL: Evaluation of the bowel is limited due to incomplete opacification. The stomach is distended with the liquid contrast material and air. There are a few mildly distended thick-walled loops of small bowel within the mid anterior upper and mid abdomen which, 1 of which exhibits peripheral suture material consistent with anastomosis. . There may be some adherence of a few of these loops of small bowel to the posterior margin anterior abdominal wall related to recent postsurgical sequela/ scarring granulation tissue. No evidence of acute mechanical small bowel obstruction at this time. Apparent postoperative anastomotic changes at the level of the cecum, distal transverse colon and sigmoid colon. Clinic correlation surgical history. Diverticulosis without radiographic evidence acute diverticulitis. PERITONEUM: Interval decrease in size previously noted large anterior peritoneal abscess collection containing bubbles of air. LYMPH NODES: Unremarkable. No enlarged lymph nodes. VASCULATURE: Unremarkable. No aortic aneurysm. BONES: No fracture or destructive lesion. OTHER FINDINGS: None. IMPRESSION: Interval decrease in size large anterior peritoneal collection consistent with improving abscess. The central portion of this some residual collection contains heterogeneous material and bubbles of air of small bowel. Several loops of small bowel may be adherent to the posterior margin of this large improving abscess. Medical Decision Making Medical Decision Making: Impression: 51 year old male with infected surgical wound Plan: * CT abd/pel * Blood work * Urinalysis * Cultures * Admission Case discussed with Dr. Coronado who will admit patient to his services, requests ID consult DR Freeman Disposition - Disposition Disposition: HOSPITALIZED Disposition Time: 13:55 Condition: STABLE - POA Present On Arrival: None - Clinical Impression Clinical Impression: S/P hernia repair, Postoperative wound abscess - PA / COUNTY DIRECTOR / Resident Statement MD/DO has reviewed & agrees with the documentation as recorded. - Scribe Statement The provider has reviewed the documentation as recorded by the Jesus Alberto Dugan All medical record entries made by the Jesus Alberto were at my direction and personally dictated by me. I have reviewed the chart and agree that the record accurately reflects my personal performance of the history, physical exam, medical decision making, and the department course for this patient. I have also personally directed, reviewed, and agree with the discharge instructions and disposition. Decision To Admit - Pt Status Changed To: Hospital Disposition Of: Inpatient - Admit Certification Admit to Inpatient:: After my assessment, the patient will require hospitalization for at least two midnights. This is because of the severity of symptoms shown, intensity of services needed, and/or the medical risk in this patient being treated as an outpatient. - InPatient: Physician Admission Certification: I certify that this patient requires 2 or more midnights of care for the following reason:: Patient with postoperative wound infection, s.p hernia repair. patient will need ID and surgical intervention - . Bed Request Type: Regular Admitting Physician: Crow Coronado Jr. Patient Diagnosis: S/P hernia repair, Postoperative wound abscess
[2017-07-18 14:21] LABS: BASO # 0.1 K/uL (0.0-0.2); BASO % 1.2 % (0.0-2.0); EOS # 0.2 K/uL (0.0-0.7); EOS % 3.2 % (0.0-4.0); HEMOGLOBIN 12.4 g/dL (12.0-18.0); LYMPH # 1.8 K/uL (1.0-4.3); LYMPH % 26.8 % (20.0-40.0); MEAN CELL VOLUME 86.7 fL (80.0-94.0); MEAN CORPUSCULAR HEMOGLOBIN 29.1 pg (27.0-31.0); MEAN CORPUSCULAR HGB CONC 33.6 g/dL (33.0-37.0); MEAN PLATELET VOLUME 7.5 fL (7.2-11.7); MONO # 0.8 K/uL (0.0-0.8); MONO % 11.7 % (0.0-10.0); NEUT # 3.7 K/uL (1.8-7.0); NEUT % 57.1 % (50.0-75.0); NRBC % 0.1 % (0.0-2.0); RBC 4.26 Mil/uL (4.40-5.90); RED CELL DISTRIBUTION WIDTH 14.6 % (11.5-14.5); WHITE BLOOD COUNT 6.6 K/uL (4.8-10.8)
[2017-07-18 14:30] LABS: INR 1.3; PROTHROMBIN TIME 13.7 SECONDS (9.7-12.2)
[2017-07-18] MEDS ORDERED: Iohexol 240 (50 ml) ONE (14:31)
[2017-07-18 14:35] LABS: ALB/GLOB RATIO 0.8 (1.0-2.1); ALBUMIN 3.6 g/dL (3.5-5.0); ALT/SGPT 16 U/L (21-72); AST/SGOT 19 U/L (17-59); BLOOD UREA NITROGEN 20 mg/dL (9-20); CALCIUM 9.1 mg/dl (8.6-10.4); GFR AFRICAN-AMERICAN > 60; GFR NON-AFRICAN AMERICAN > 60
--- NOTE | 2017-07-18 15:36 | CP.PCM.HP ---
History of Present Illness - History of Present Illness History of Present Illness: H&P for Dr. Coronado This is 51M s/p Ventral hernia repair on 06/13 who was readmitted for an infected mesh on 07/06 he was taken to the OR and the MES was removed and retention sutures were placed. Since that time he complains of drainage from his abdominal wound that is foul smelling and purulen. He denies any fevers at home however complains of general malaise and periodic chills. Denies current: vomiting, diarrhea, chest pain, shortness of breath PMH: HTN, diverticulitis, hypothyroidism, anxiety, kidney stones, CKD Surg Hx:Infected mesh removal, Incisional hernia 06/13/17 at [facility], right hydrocelectomy in February 2017 at [facility], partial colectomy for diverticulitis in May 2015, cholecyctectomy Home Meds: Telmisartan/Hydrochlorothiazide 1 tab daily PO Social Hx: Denies use of tobacco, alcohol, drugs (indicated prior use of tobacco with cessation earlier this year) FMH: Denies Allgeries: NKDA, shellfish (produces rash) Present on Admission - Present on Admission Any Indicators Present on Admission: No Review of Systems - Review of Systems All systems: reviewed and no additional remarkable complaints except - Constitutional Constitutional: Chills. absent: Anorexia - Cardiovascular Cardiovascular: absent: Chest Pain, Dyspnea - Respiratory Respiratory: absent: Dyspnea, Chest Congestion - Gastrointestinal Gastrointestinal: absent: Abdominal Pain, Melena, Nausea - Integumentary Additional comments: Pus draining from midline wound Past Patient History - Infectious Disease Hx of Infectious Diseases: None - Past Medical History & Family History Past Medical History?: Yes - Past Social History Smoking Status: Former Smoker - CARDIAC Hx Hypertension: Yes - PULMONARY Hx Respiratory Disorders: No - NEUROLOGICAL Hx Neurological Disorder: No - HEENT Hx HEENT Problems: No - RENAL Hx Chronic Kidney Disease: Yes Hx Kidney Stones: Yes (PASSED ON OWN) - ENDOCRINE/METABOLIC Hx Hypothyroidism: Yes (no longer needs meds) - HEMATOLOGICAL/ONCOLOGICAL Hx Blood Disorders: No - INTEGUMENTARY Hx Dermatological Problems: No - MUSCULOSKELETAL/RHEUMATOLOGICAL Hx Falls: No - GASTROINTESTINAL Hx Diverticulitis: Yes Hx Gall Bladder Disease: Yes - GENITOURINARY/GYNECOLOGICAL Hx Genitourinary Disorders: Yes Other/Comment: hydrocelectomy - PSYCHIATRIC Hx Anxiety: Yes Hx Substance Use: No - SURGICAL HISTORY Hx Cholecystectomy: Yes - ANESTHESIA Hx Anesthesia: Yes Hx Anesthesia Reactions: No Hx Malignant Hyperthermia: No Meds Allergies/Adverse Reactions: Allergies Allergy/AdvReac Type Severity Reaction Status Date / Time No Known Allergies Allergy Verified 07/18/17 13:26 Physical Exam - Constitutional Appears: Non-toxic, No Acute Distress - Head Exam Head Exam: ATRAUMATIC, NORMOCEPHALIC - Eye Exam Eye Exam: EOMI, Normal appearance - ENT Exam ENT Exam: Mucous Membranes Moist - Respiratory Exam Respiratory Exam: NORMAL BREATHING PATTERN - Cardiovascular Exam Cardiovascular Exam: +S1, +S2 - GI/Abdominal Exam GI & Abdominal Exam: Normal Bowel Sounds, Soft - Neurological Exam Neurological exam: Alert, Oriented x3 - Psychiatric Exam Psychiatric exam: Normal Affect, Normal Mood - Skin Skin Exam: Dry, Intact, Warm Results - Vital Signs Recent Vital Signs: Last Vital Signs Temp 98.6 F 07/18/17 13:24 Pulse 79 07/18/17 13:24 Resp 18 07/18/17 13:24 BP 116/80 07/18/17 13:24 Pulse Ox 100 07/18/17 15:31 - Labs Result Diagrams: 07/18/17 14:17 07/18/17 14:17 Labs: Laboratory Results - last 24 hr 07/18/17 07/18/17 07/18/17 14:17 14:17 14:17 WBC 6.6 RBC 4.26 L Hgb 12.4 Hct 36.9 MCV 86.7 MCH 29.1 MCHC 33.6 RDW 14.6 H Plt Count 510 H D MPV 7.5 Neut % (Auto) 57.1 Lymph % (Auto) 26.8 Tift % (Auto) 11.7 H Eos % (Auto) 3.2 Baso % (Auto) 1.2 Neut # (Auto) 3.7 Lymph # (Auto) 1.8 Tift # (Auto) 0.8 Eos # (Auto) 0.2 Baso # (Auto) 0.1 PT 13.7 H INR 1.3 APTT 29 Sodium 137 Potassium 4.6 Chloride 95 L Carbon Dioxide 29 Anion Gap 17 BUN 20 Creatinine 1.2 Est GFR ( Amer) > 60 Est GFR (Non-Af Amer) > 60 Random Glucose 104 Calcium 9.1 Total Bilirubin 0.5 AST 19 ALT 16 L D Alkaline Phosphatase 107 Total Protein 8.2 Albumin 3.6 Globulin 4.7 H Albumin/Globulin Ratio 0.8 L Assessment & Plan - Assessment and Plan (Free Text) Assessment: 51M with surgical site infection IV abx F/U Cultures F/U CT scan Remove Midline aneudy IVF Diet pending CT studies D/W Dr. Ivonne Aragon PGY2
[2017-07-18 15:49] LABS: URINE BILIRUBIN NEGATIVE (NEGATIVE); URINE BLOOD NEGATIVE (NEGATIVE); URINE CLARITY Clear (Clear); URINE COLOR Yellow (YELLOW); URINE GLUCOSE (UA) NORMAL (Normal); URINE LEUKOCYTE ESTERASE NEG Leu/uL (Negative); URINE PROTEIN NEGATIVE (NEGATIVE); URINE UROBILINOGEN NORMAL mg/dL (0.2-1.0)
[2017-07-18] MEDS: Sodium Chloride 0.9% 1,000 ML IV SCH ×2 (16:08→22:04)
--- NOTE | 2017-07-18 16:58 | CT ---
PROCEDURE: CT scan abdomen pelvis dated 07/18/2017 HISTORY: Abdominal pain and infected wound, s.p hernia repair COMPARISON: Comparison made with CT scan 07/05/2017 TECHNIQUE: Contiguous axial images of the abdomen and pelvis performed following oral contrast material. Additional 2D sagittal and coronal reformats generated. Radiation dose: Total exam DLP = 904.99 mGy-cm. This CT exam was performed using one or more of the following dose reduction techniques: Automated exposure control, adjustment of the mA and/or kV according to patient size, and/or use of iterative reconstruction technique. . FINDINGS: LOWER THORAX: Lung bases clear. No infiltrate effusion or basilar pneumothorax. There is small hiatal hernia. LIVER: Liver is mildly enlarged measuring nearly 20 cm in CC dimension. No obvious hepatic mass collection or calcification. GALLBLADDER AND BILE DUCTS: Cholecystectomy PANCREAS: Pancreas appears grossly unremarkable without masses collections or calcifications. SPLEEN: Spleen mildly enlarged measuring over 14 cm in AP dimension. ADRENALS: There are no adrenal lesions e. KIDNEYS AND URETERS: Small cysts upper and anterior lower pole right kidney again noted. BLADDER: Grossly unremarkable. Urinary bladder appears incompletely distended which presumably accounts slight thick-walled appearance. Muscular hypertrophy may contribute. REPRODUCTIVE: Unremarkable. APPENDIX: Not identified BOWEL: Evaluation of the bowel is limited due to incomplete opacification. The stomach is distended with the liquid contrast material and air. There are a few mildly distended thick-walled loops of small bowel within the mid anterior upper and mid abdomen which, 1 of which exhibits peripheral suture material consistent with anastomosis. . There may be some adherence of a few of these loops of small bowel to the posterior margin anterior abdominal wall related to recent postsurgical sequela/ scarring granulation tissue. No evidence of acute mechanical small bowel obstruction at this time. Apparent postoperative anastomotic changes at the level of the cecum, distal transverse colon and sigmoid colon. Clinic correlation surgical history. Diverticulosis without radiographic evidence acute diverticulitis. PERITONEUM: Interval decrease in size previously noted large anterior peritoneal abscess collection containing bubbles of air. LYMPH NODES: Unremarkable. No enlarged lymph nodes. VASCULATURE: Unremarkable. No aortic aneurysm. BONES: No fracture or destructive lesion. OTHER FINDINGS: None. IMPRESSION: Interval decrease in size large anterior peritoneal collection consistent with improving abscess. The central portion of this some residual collection contains heterogeneous material and bubbles of air of small bowel. Several loops of small bowel may be adherent to the posterior margin of this large improving abscess.
[2017-07-18 17:17] VITALS: RESP 20
[2017-07-18] MEDS: Piperacillin/Tazobact 3.375 GM in Sodium Chloride 100 ML IVPB SCH (18:33)
[2017-07-19] MEDS: Piperacillin/Tazobact 3.375 GM in Sodium Chloride 100 ML IVPB SCH ×2 (00:02→06:03)
[2017-07-19] MEDS: Sodium Chloride 0.9% 1,000 ML IV SCH ×5 (01:14→19:30)
[2017-07-19 07:38] LABS: BASO # 0.1 K/uL (0.0-0.2); BASO % 1.4 % (0.0-2.0); EOS # 0.2 K/uL (0.0-0.7); EOS % 4.2 % (0.0-4.0); HEMOGLOBIN 11.4 g/dL (12.0-18.0); LYMPH # 1.7 K/uL (1.0-4.3); LYMPH % 31.1 % (20.0-40.0); MEAN CELL VOLUME 85.7 fL (80.0-94.0); MEAN CORPUSCULAR HEMOGLOBIN 29.6 pg (27.0-31.0); MEAN CORPUSCULAR HGB CONC 34.5 g/dL (33.0-37.0); MEAN PLATELET VOLUME 7.7 fL (7.2-11.7); MONO # 0.7 K/uL (0.0-0.8); MONO % 12.6 % (0.0-10.0); NEUT # 2.7 K/uL (1.8-7.0); NEUT % 50.7 % (50.0-75.0); NRBC % 0.1 % (0.0-2.0); RBC 3.85 Mil/uL (4.40-5.90); RED CELL DISTRIBUTION WIDTH 14.5 % (11.5-14.5); WHITE BLOOD COUNT 5.4 K/uL (4.8-10.8)
[2017-07-19 07:44] LABS: INR 1.3; PROTHROMBIN TIME 14.5 SECONDS (9.7-12.2)
[2017-07-19 07:47] LABS: BLOOD UREA NITROGEN 16 mg/dL (9-20); CALCIUM 8.5 mg/dl (8.6-10.4); GFR AFRICAN-AMERICAN > 60; GFR NON-AFRICAN AMERICAN > 60
--- NOTE | 2017-07-19 09:29 | CP.PCM.PN ---
Subjective - Date & Time of Evaluation Date of Evaluation: 07/19/17 Time of Evaluation: 08:00 - Subjective Subjective: General Surgery Progress Note for Dr. Coronado This 51M was seen and evaluated this Am at bedside no acute events overnight. Patients dressing was taken down this AM durring rounds and aneudy were removed. He denies any abodminal pain, SOB, Chest pain. No new complaints at this time, however vocally frustrated with his clinical course. Objective - Vital Signs/Intake and Output Vital Signs (last 24 hours): Temp Pulse Resp BP Pulse Ox 97.8 F 59 L 20 105/70 97 07/19/17 07:51 07/19/17 07:51 07/19/17 07:51 07/19/17 07:51 07/19/17 07:51 Intake and Output: 07/19/17 07/19/17 06:59 18:59 Intake Total 2175 Output Total 600 Balance 1575 - Medications Medications: Current Medications Heparin Sodium (Porcine) (Heparin) 5,000 units SC Q8 [facility] Last Admin: 07/19/17 06:10 Dose: 5,000 units Hydromorphone HCl (Dilaudid) 0.5 mg IVP Q4H PRN PRN Reason: Pain, severe (8-10) Sodium Chloride (Sodium Chloride 0.9%) 1,000 mls @ 145 mls/hr IV .Q6H54M [facility] Last Admin: 07/19/17 05:33 Dose: Not Given Piperacillin Sod/Tazobactam (Sod 3.375 gm/ Sodium Chloride) 100 mls @ 200 mls/ hr IVPB Q6H [id number] PRN Reason: Protocol Last Admin: 07/19/17 06:03 Dose: 200 mls/hr Pneumococcal Polyvalent Vaccine (Pneumovax 23 Vaccine) 0.5 ml IM .ONCE ONE Stop: 07/21/17 10:01 - Labs Labs: 07/19/17 07:20 07/19/17 07:20 PT 14.5 SECONDS (9.7-12.2) H 07/19/17 07:20 INR 1.3 07/19/17 07:20 APTT 29 SECONDS (21-34) 07/19/17 07:20 - Constitutional Appears: Non-toxic, No Acute Distress - Head Exam Head Exam: ATRAUMATIC, NORMOCEPHALIC - Eye Exam Eye Exam: EOMI - ENT Exam ENT Exam: Mucous Membranes Moist - Respiratory Exam Respiratory Exam: NORMAL BREATHING PATTERN - Cardiovascular Exam Cardiovascular Exam: +S1, +S2 - GI/Abdominal Exam GI & Abdominal Exam: Soft. absent: Guarding, Rigid, Tenderness - Neurological Exam Neurological Exam: Alert, Awake - Psychiatric Exam Psychiatric exam: Normal Affect, Normal Mood - Skin Skin Exam: Dry, Intact Assessment and Plan - Assessment and Plan (Free Text) Assessment: 51M with a surgical site infection IV abx F/U Cultures Removed Midline aneudy IVF D/W Dr. Ivonne Aragon PGY2
--- NOTE | 2017-07-19 10:16 | CP.PCM.CON ---
History of Present Illness - History of Present Illness History of Present Illness: 51M s/p Ventral hernia repair on 06/13 who was readmitted for an infected mesh on 07/06 he was taken to the OR and the MESH was removed and retention sutures were placed. He was placed on IV and then PO antibiotics and his wound was healing well upon discharge Since that time he complains of drainage from his abdominal wound that is purulent. Denies vomiting, diarrhea, chest pain, or shortness of breath ID consulted for antibiotic management CT shows decrease in inta abd abscess / collection PMH: HTN, diverticulitis, hypothyroidism, anxiety, kidney stones, CKD Surg Hx:Infected mesh removal, Incisional hernia 06/13/17 at [facility], [place], right hydrocelectomy in February 2017 at [facility], [place], partial colectomy for diverticulitis in May 2015, cholecyctectomy Home Meds: Telmisartan/Hydrochlorothiazide 1 tab daily PO Social Hx: Denies use of tobacco, alcohol, drugs (indicated prior use of tobacco with cessation earlier this year) FMH: Denies Allgeries: NKDA, shellfish (produces rash) Review of Systems - Review of Systems All systems: reviewed and no additional remarkable complaints except - Constitutional Constitutional: As Per HPI - EENT Eyes: absent: As Per HPI, Blind Spots, Blurred Vision, Change in Vision, Decreased Night Vision, Diplopia, Discharge, Dry Eye, Exophthalmos, Floaters, Irritation, Itchy Eyes, Loss of Peripheral Vision, Pain, Photophobia, Requires Corrective Lenses, Sees Flashes, Spots in Vision, Tunnel Vision, Other Visual Disturbances, Loss of Vision, Other Ears: absent: As Per HPI, Decreased Hearing, Ear Discharge, Ear Pain, Tinnitus, Abnormal Hearing, Disequilibrium, Dizziness, Other Nose/Mouth/Throat: absent: As Per HPI, Epistaxis, Nasal Congestion, Nasal Discharge, Nasal Obstruction, Nasal Trauma, Nose Pain, Post Nasal Drip, Sinus Pain, Sinus Pressure, Bleeding Gums, Change in Voice, Dental Pain, Dry Mouth, Dysphagia, Halitosis, Hoarsness, Lip Swelling, Mouth Lesions, Mouth Pain, Odynophagia, Sore Throat, Throat Swelling, Tongue Swelling, Facial Pain, Neck Pain, Neck Mass, Other - Respiratory Respiratory: absent: As Per HPI, Cough, Dyspnea, Hemoptysis, Dyspnea on Exertion , Wheezing, Snoring, Stridor, Pain on Inspiration, Chest Congestion, Excessive Mucous Production, Change in Mucous Color, Pain with Coughing, Other - Gastrointestinal Gastrointestinal: As Per HPI, Abdominal Pain - Genitourinary Genitourinary: absent: As Per HPI, Change in Urinary Stream, Difficulty Urinating, Dysuria, Flank Pain, Hematuria, Pyuria, Nocturia, Urinary Incontinence, Urinary Frequency, Urinary Hesitance, Urinary Urgency, Voiding Freq/Small Amts, Freq UTI, Hx Renal/Bladder Calculi, Hx /Renal Surgery, Bladder Distension, Other - Musculoskeletal Musculoskeletal: absent: As Per HPI, Abnormal Gait, Arthralgias, Atrophy, Back Pain, Deformity, Joint Swelling, Limited Range of Motion, Loss of Height, Muscle Cramps, Muscle Weakness, Myalgias, Neck Pain, Numbness, Radiating Pain into Limb, Stiffness, Tingling, Other - Integumentary Integumentary: As Per HPI - Neurological Neurological: absent: As Per HPI, Abnormal Gait, Abnormal Hearing, Abnormal Movements, Abnormal Speech, Behavioral Changes, Burning Sensations, Confusion, Convulsions, Disequilibrium, Dizziness, Numbness, Focal Weakness, Frequent Falls , Headaches, Lack of Coordination, Loss of Vision, Memory Loss, Paresthesias, Radicular Pain, Restless Legs, Sensory Deficit, Syncope, Tingling, Tremor, Vertigo, Weakness, Other Visual Disturbances, Other - Psychiatric Psychiatric: absent: As Per HPI, Abnormal Sleep Pattern, Anhedonia, Anxiety, Auditory Hallucinations, Behavioral Changes, Change in Appetite, Change in Libido, Confusion, Depression, Difficulty Concentrating, Hallucinations, Homicidal Ideation, Hopelessness, Irritability, Memory Loss, Mood Swings, Panic Attacks, Paranoia, Suicidal Ideation, Visual Hallucinations, Tactile Hallucinations, Other - Endocrine Endocrine: absent: As Per HPI, Change in Body Appearance, Change in Libido, Cold Intolorance, Deepening of Voice, Excessive Sweating, Fatigue, Flushing, Heat Intolorance, Increase in Ring/Shoe/Hat Size, Palpitations, Polydipsia, Polyphagia, Polyuria, Other - Hematologic/Lymphatic Hematologic: absent: As Per HPI, Easy Bleeding, Easy Bruising, Lymphadenopathy, Other Past Patient History - Infectious Disease Hx of Infectious Diseases: None - Past Medical History & Family History Past Medical History?: Yes - Past Social History Smoking Status: Never Smoked - CARDIAC Hx Cardiac Disorders: Yes Hx Hypertension: Yes - PULMONARY Hx Respiratory Disorders: No - NEUROLOGICAL Hx Neurological Disorder: No - HEENT Hx HEENT Problems: No - RENAL Hx Chronic Kidney Disease: Yes Hx Kidney Stones: Yes (PASSED ON OWN) - ENDOCRINE/METABOLIC Hx Endocrine Disorders: Yes Hx Hypothyroidism: Yes (no longer needs meds) - HEMATOLOGICAL/ONCOLOGICAL Hx Blood Disorders: No - INTEGUMENTARY Hx Dermatological Problems: No - MUSCULOSKELETAL/RHEUMATOLOGICAL Hx Musculoskeletal Disorders: No Hx Falls: No - GASTROINTESTINAL Hx Gastrointestinal Disorders: Yes Hx Diverticulitis: Yes Hx Gall Bladder Disease: Yes - GENITOURINARY/GYNECOLOGICAL Hx Genitourinary Disorders: Yes Other/Comment: hydrocelectomy - PSYCHIATRIC Hx Psychophysiologic Disorder: Yes Hx Anxiety: Yes Hx Substance Use: No - SURGICAL HISTORY Hx Surgeries: Yes Hx Cholecystectomy: Yes - ANESTHESIA Hx Anesthesia: Yes Hx Anesthesia Reactions: No Hx Malignant Hyperthermia: No Has any member of the family had a problem w/ anesthesia?: No Meds Allergies/Adverse Reactions: Allergies Allergy/AdvReac Type Severity Reaction Status Date / Time No Known Allergies Allergy Verified 07/18/17 13:26 - Medications Medications: Current Medications Heparin Sodium (Porcine) (Heparin) 5,000 units SC Q8 [facility] Last Admin: 07/19/17 06:10 Dose: 5,000 units Hydromorphone HCl (Dilaudid) 0.5 mg IVP Q4H PRN PRN Reason: Pain, severe (8-10) Sodium Chloride (Sodium Chloride 0.9%) 1,000 mls @ 145 mls/hr IV .Q6H54M [facility] Last Admin: 07/19/17 09:32 Dose: 145 mls/hr Piperacillin Sod/Tazobactam (Sod 3.375 gm/ Sodium Chloride) 100 mls @ 200 mls/ hr IVPB Q6H [facility] PRN Reason: Protocol Last Admin: 07/19/17 06:03 Dose: 200 mls/hr Pneumococcal Polyvalent Vaccine (Pneumovax 23 Vaccine) 0.5 ml IM .ONCE ONE Stop: 07/21/17 10:01 Physical Exam - Constitutional Appears: Non-toxic, Chronically Ill - Head Exam Head Exam: NORMOCEPHALIC - Eye Exam Eye Exam: PERRL Pupil Exam: NORMAL ACCOMODATION - ENT Exam ENT Exam: Mucous Membranes Moist - Neck Exam Neck exam: Negative for: Lymphadenopathy - Respiratory Exam Respiratory Exam: Clear to Auscultation Bilateral - Cardiovascular Exam Cardiovascular Exam: REGULAR RHYTHM - GI/Abdominal Exam GI & Abdominal Exam: Diminished Bowel Sounds, Guarding, Soft. absent: Rigid Additional comments: midline wound with purulent drainage - Rectal Exam Rectal Exam: Deferred - Exam Exam: NORMAL INSPECTION - Extremities Exam Extremities exam: Negative for: pedal edema - Back Exam Back exam: absent: CVA tenderness (L), CVA tenderness (R) - Neurological Exam Neurological exam: Alert, CN II-XII Intact, Oriented x3, Reflexes Normal - Psychiatric Exam Psychiatric exam: Normal Mood - Skin Skin Exam: Dry Results - Vital Signs Recent Vital Signs: Last Vital Signs Temp 97.8 F 07/19/17 07:51 Pulse 59 L 07/19/17 07:51 Resp 20 07/19/17 07:51 BP 105/70 07/19/17 07:51 Pulse Ox 97 07/19/17 07:51 - Labs Result Diagrams: 07/19/17 07:20 07/19/17 07:20 Labs: Laboratory Results - last 24 hr 07/18/17 07/18/17 07/18/17 14:17 14:17 14:17 WBC 6.6 RBC 4.26 L Hgb 12.4 Hct 36.9 MCV 86.7 MCH 29.1 MCHC 33.6 RDW 14.6 H Plt Count 510 H D MPV 7.5 Neut % (Auto) 57.1 Lymph % (Auto) 26.8 [place] % (Auto) 11.7 H Eos % (Auto) 3.2 Baso % (Auto) 1.2 Neut # (Auto) 3.7 Lymph # (Auto) 1.8 [place] # (Auto) 0.8 Eos # (Auto) 0.2 Baso # (Auto) 0.1 PT 13.7 H INR 1.3 APTT 29 Sodium 137 Potassium 4.6 Chloride 95 L Carbon Dioxide 29 Anion Gap 17 BUN 20 Creatinine 1.2 Est GFR ( Amer) > 60 Est GFR (Non-Af Amer) > 60 Random Glucose 104 Calcium 9.1 Total Bilirubin 0.5 AST 19 ALT 16 L D Alkaline Phosphatase 107 Total Protein 8.2 Albumin 3.6 Globulin 4.7 H Albumin/Globulin Ratio 0.8 L Urine Color Urine Clarity Urine pH Ur Specific [place] Urine Protein Urine Glucose (UA) Urine Ketones Urine Blood Urine Nitrate Urine Bilirubin Urine Urobilinogen Ur Leukocyte Esterase Urine WBC (Auto) Urine RBC (Auto) 07/18/17 07/19/17 07/19/17 15:39 07:20 07:20 WBC 5.4 RBC 3.85 L Hgb 11.4 L Hct 33.0 L MCV 85.7 MCH 29.6 MCHC 34.5 RDW 14.5 Plt Count 413 H MPV 7.7 Neut % (Auto) 50.7 Lymph % (Auto) 31.1 [place] % (Auto) 12.6 H Eos % (Auto) 4.2 H Baso % (Auto) 1.4 Neut # (Auto) 2.7 Lymph # (Auto) 1.7 [place] # (Auto) 0.7 Eos # (Auto) 0.2 Baso # (Auto) 0.1 PT 14.5 H INR 1.3 APTT 29 Sodium Potassium Chloride Carbon Dioxide Anion Gap BUN Creatinine Est GFR ( Amer) Est GFR (Non-Af Amer) Random Glucose Calcium Total Bilirubin AST ALT Alkaline Phosphatase Total Protein Albumin Globulin Albumin/Globulin Ratio Urine Color Yellow Urine Clarity Clear Urine pH 5.0 Ur Specific [place] 1.012 Urine Protein Negative Urine Glucose (UA) Normal Urine Ketones Negative Urine Blood Negative Urine Nitrate Negative Urine Bilirubin Negative Urine Urobilinogen Normal Ur Leukocyte Esterase Neg Urine WBC (Auto) 1 Urine RBC (Auto) < 1 07/19/17 07:20 WBC RBC Hgb Hct MCV MCH MCHC RDW Plt Count MPV Neut % (Auto) Lymph % (Auto) [place] % (Auto) Eos % (Auto) Baso % (Auto) Neut # (Auto) Lymph # (Auto) [place] # (Auto) Eos # (Auto) Baso # (Auto) PT INR APTT Sodium 138 Potassium 4.6 Chloride 101 Carbon Dioxide 28 Anion Gap 13 BUN 16 Creatinine 1.2 Est GFR ( Amer) > 60 Est GFR (Non-Af Amer) > 60 Random Glucose 98 Calcium 8.5 L Total Bilirubin AST ALT Alkaline Phosphatase Total Protein Albumin Globulin Albumin/Globulin Ratio Urine Color Urine Clarity Urine pH Ur Specific [place] Urine Protein Urine Glucose (UA) Urine Ketones Urine Blood Urine Nitrate Urine Bilirubin Urine Urobilinogen Ur Leukocyte Esterase Urine WBC (Auto) Urine RBC (Auto) Assessment & Plan - Assessment and Plan (Free Text) Assessment: failed out pt rx may need another washout/ drainage cont iv antibiotics
[2017-07-19] MEDS: Meropenem 1 GM in Sodium Chloride 0.9% 100 ML IVPB SCH ×2 (14:16→21:20)
[2017-07-20] MEDS: Vancomycin 1 gm/NS 200 ml 1 GM/200 ML BAG IVPB SCH ×3 (00:25→23:42)
[2017-07-20] MEDS: Sodium Chloride 0.9% 1,000 ML IV SCH ×4 (02:54→22:43)
[2017-07-20] MEDS: Meropenem 1 GM in Sodium Chloride 0.9% 100 ML IVPB SCH ×3 (05:26→22:00)
--- NOTE | 2017-07-20 08:55 | CP.PCM.PN ---
Subjective - Date & Time of Evaluation Date of Evaluation: 07/20/17 Time of Evaluation: 08:54 - Subjective Subjective: no growth yet will repeat culture large purulent drainage ct improved major issue is wound care Objective - Vital Signs/Intake and Output Vital Signs (last 24 hours): Temp Pulse Resp BP Pulse Ox 98.4 F 77 20 105/67 98 07/19/17 23:33 07/19/17 23:33 07/19/17 23:33 07/19/17 23:33 07/19/17 23:33 Intake and Output: 07/20/17 07/20/17 06:59 18:59 Intake Total 1160 Balance 1160 - Medications Medications: Current Medications Heparin Sodium (Porcine) (Heparin) 5,000 units SC Q8 [facility] Last Admin: 07/20/17 05:31 Dose: 5,000 units Hydromorphone HCl (Dilaudid) 0.5 mg IVP Q4H PRN PRN Reason: Pain, severe (8-10) Sodium Chloride (Sodium Chloride 0.9%) 1,000 mls @ 145 mls/hr IV .Q6H54M [facility] Last Admin: 07/20/17 02:54 Dose: Not Given Vancomycin/Sodium Chloride (Vancomycin 1 Gm/Ns 200 Ml) 1 gm in 200 mls @ 166.6 mls/hr IVPB Q12H [facility] PRN Reason: Protocol Stop: 07/24/17 12:01 Last Admin: 07/20/17 00:25 Dose: 166.6 mls/hr Meropenem 1 gm/ Sodium (Chloride) 100 mls @ 100 mls/hr IVPB Q8H [facility] PRN Reason: Protocol Last Admin: 07/20/17 05:26 Dose: 100 mls/hr Pneumococcal Polyvalent Vaccine (Pneumovax 23 Vaccine) 0.5 ml IM .ONCE ONE Stop: 07/21/17 10:01 - Labs Labs: 07/19/17 07:20 07/19/17 07:20 PT 14.5 SECONDS (9.7-12.2) H 07/19/17 07:20 INR 1.3 07/19/17 07:20 APTT 29 SECONDS (21-34) 07/19/17 07:20
--- NOTE | 2017-07-20 17:56 | CP.PCM.PN ---
Subjective - Date & Time of Evaluation Date of Evaluation: 07/20/17 Time of Evaluation: 08:00 - Subjective Subjective: c/o discomfort no fever + drainage may need OR cont iv rx mycamine added Objective - Vital Signs/Intake and Output Vital Signs (last 24 hours): Temp Pulse Resp BP Pulse Ox 98.5 F 80 20 125/78 98 07/20/17 16:00 07/20/17 16:00 07/20/17 16:00 07/20/17 16:00 07/20/17 16:00 Intake and Output: 07/20/17 07/20/17 06:59 18:59 Intake Total 2195 Output Total 450 Balance 1745 - Medications Medications: Current Medications Heparin Sodium (Porcine) (Heparin) 5,000 units SC Q8 [facility] Last Admin: 07/20/17 14:05 Dose: Not Given Hydromorphone HCl (Dilaudid) 0.5 mg IVP Q4H PRN PRN Reason: Pain, severe (8-10) Sodium Chloride (Sodium Chloride 0.9%) 1,000 mls @ 145 mls/hr IV .Q6H54M [facility] Last Admin: 07/20/17 10:12 Dose: Not Given Vancomycin/Sodium Chloride (Vancomycin 1 Gm/Ns 200 Ml) 1 gm in 200 mls @ 166.6 mls/hr IVPB Q12H [facility] PRN Reason: Protocol Stop: 07/24/17 12:01 Last Admin: 07/20/17 12:01 Dose: 166.6 mls/hr Meropenem 1 gm/ Sodium (Chloride) 100 mls @ 100 mls/hr IVPB Q8H [facility] PRN Reason: Protocol Last Admin: 07/20/17 14:05 Dose: 100 mls/hr Micafungin Sodium 100 mg/ (Sodium Chloride) 100 mls @ 100 mls/hr IV Q24H [facility] PRN Reason: Protocol Pneumococcal Polyvalent Vaccine (Pneumovax 23 Vaccine) 0.5 ml IM .ONCE ONE Stop: 07/21/17 10:01 - Labs Labs: 07/19/17 07:20 07/19/17 07:20 PT 14.5 SECONDS (9.7-12.2) H 07/19/17 07:20 INR 1.3 07/19/17 07:20 APTT 29 SECONDS (21-34) 07/19/17 07:20 - Constitutional Appears: Non-toxic - Head Exam Head Exam: NORMOCEPHALIC - Eye Exam Eye Exam: absent: Scleral icterus - ENT Exam ENT Exam: Mucous Membranes Dry - Neck Exam Neck Exam: absent: Lymphadenopathy - Respiratory Exam Respiratory Exam: Decreased Breath Sounds - Cardiovascular Exam Cardiovascular Exam: REGULAR RHYTHM - GI/Abdominal Exam GI & Abdominal Exam: Distended Additional comments: + retention sutures wound drainage - Rectal Exam Rectal Exam: Deferred - Exam Exam: NORMAL INSPECTION Assessment and Plan - Assessment and Plan (Free Text) Plan: add Mycamine cont iv antibiotics
[2017-07-20] MEDS: Micafungin 100 MG in Sodium Chloride 0.9% 100 ML IV SCH (19:00)
[2017-07-21] MEDS: Meropenem 1 GM in Sodium Chloride 0.9% 100 ML IVPB SCH ×3 (05:13→21:32)
[2017-07-21] MEDS: Sodium Chloride 0.9% 1,000 ML IV SCH ×3 (07:18→19:11)
[2017-07-21] MEDS ORDERED: Pneumococcal 23-Valent Vaccine IM ONE (10:00)
[2017-07-21] MEDS: Vancomycin 1 gm/NS 200 ml 1 GM/200 ML BAG IVPB SCH ×2 (12:08→23:24)
--- NOTE | 2017-07-21 13:13 | CP.PCM.PN ---
Subjective - Date & Time of Evaluation Date of Evaluation: 07/21/17 Time of Evaluation: 13:12 - Subjective Subjective: culture showed chloe stasrted on anti fungal agents no fever, mesh out, drainage persisting no immediate plans for ant surgery Objective - Vital Signs/Intake and Output Vital Signs (last 24 hours): Temp Pulse Resp BP Pulse Ox 98.9 F 69 20 142/92 H 95 07/21/17 08:21 07/21/17 08:21 07/21/17 08:21 07/21/17 08:21 07/21/17 08:21 Intake and Output: 07/21/17 07/21/17 06:59 18:59 Intake Total 440 590 Balance 440 590 - Medications Medications: Current Medications Heparin Sodium (Porcine) (Heparin) 5,000 units SC Q8 [facility] Last Admin: 07/21/17 05:15 Dose: Not Given Hydromorphone HCl (Dilaudid) 0.5 mg IVP Q4H PRN PRN Reason: Pain, severe (8-10) Sodium Chloride (Sodium Chloride 0.9%) 1,000 mls @ 145 mls/hr IV .Q6H54M [facility] Last Admin: 07/21/17 07:18 Dose: Not Given Vancomycin/Sodium Chloride (Vancomycin 1 Gm/Ns 200 Ml) 1 gm in 200 mls @ 166.6 mls/hr IVPB Q12H [facility] PRN Reason: Protocol Stop: 07/24/17 12:01 Last Admin: 07/21/17 12:08 Dose: 166.6 mls/hr Meropenem 1 gm/ Sodium (Chloride) 100 mls @ 100 mls/hr IVPB Q8H [facility] PRN Reason: Protocol Last Admin: 07/21/17 05:13 Dose: 100 mls/hr Micafungin Sodium 100 mg/ (Sodium Chloride) 100 mls @ 100 mls/hr IV Q24H [facility] PRN Reason: Protocol Last Admin: 07/20/17 19:00 Dose: 100 mls/hr - Labs Labs: 07/19/17 07:20 07/19/17 07:20 PT 14.5 SECONDS (9.7-12.2) H 07/19/17 07:20 INR 1.3 07/19/17 07:20 APTT 29 SECONDS (21-34) 07/19/17 07:20
[2017-07-21] MEDS: HYDROmorphone 0.5 mg/0.5 ml ISec IVP PRN ×2 (19:00→23:24)
[2017-07-21] MEDS: Micafungin 100 MG in Sodium Chloride 0.9% 100 ML IV SCH (19:01)
--- NOTE | 2017-07-21 19:16 | CP.PCM.PN ---
Subjective - Date & Time of Evaluation Date of Evaluation: 07/21/17 Time of Evaluation: 09:00 - Subjective Subjective: no fever mesh is out IV rx in progress cont same Objective - Vital Signs/Intake and Output Vital Signs (last 24 hours): Temp Pulse Resp BP Pulse Ox 98.3 F 65 20 121/74 98 07/21/17 16:00 07/21/17 16:00 07/21/17 16:00 07/21/17 16:00 07/21/17 16:00 Intake and Output: 07/21/17 07/22/17 18:59 06:59 Intake Total 890 Output Total 700 Balance 190 - Medications Medications: Current Medications Heparin Sodium (Porcine) (Heparin) 5,000 units SC Q8 [facility] Last Admin: 07/21/17 14:33 Dose: Not Given Hydromorphone HCl (Dilaudid) 0.5 mg IVP Q4H PRN PRN Reason: Pain, severe (8-10) Last Admin: 07/21/17 19:00 Dose: 0.5 mg Sodium Chloride (Sodium Chloride 0.9%) 1,000 mls @ 145 mls/hr IV .Q6H54M [facility] Last Admin: 07/21/17 19:11 Dose: Not Given Vancomycin/Sodium Chloride (Vancomycin 1 Gm/Ns 200 Ml) 1 gm in 200 mls @ 166.6 mls/hr IVPB Q12H [facility] PRN Reason: Protocol Stop: 07/24/17 12:01 Last Admin: 07/21/17 12:08 Dose: 166.6 mls/hr Meropenem 1 gm/ Sodium (Chloride) 100 mls @ 100 mls/hr IVPB Q8H [facility] PRN Reason: Protocol Last Admin: 07/21/17 14:29 Dose: 100 mls/hr Micafungin Sodium 100 mg/ (Sodium Chloride) 100 mls @ 100 mls/hr IV Q24H [facility] PRN Reason: Protocol Last Admin: 07/21/17 19:01 Dose: 100 mls/hr - Labs Labs: 07/19/17 07:20 07/19/17 07:20 PT 14.5 SECONDS (9.7-12.2) H 07/19/17 07:20 INR 1.3 07/19/17 07:20 APTT 29 SECONDS (21-34) 07/19/17 07:20 - Constitutional Appears: Non-toxic, Chronically Ill - Head Exam Head Exam: NORMOCEPHALIC - Eye Exam Eye Exam: PERRL - ENT Exam ENT Exam: Mucous Membranes Dry - Neck Exam Neck Exam: absent: Lymphadenopathy - Respiratory Exam Respiratory Exam: Decreased Breath Sounds - Cardiovascular Exam Cardiovascular Exam: REGULAR RHYTHM - GI/Abdominal Exam GI & Abdominal Exam: Distended, Tenderness, Diminished Bowel Sounds. absent: Mass Additional comments: midline wound + - Rectal Exam Rectal Exam: Deferred - Exam Exam: NORMAL INSPECTION - Back Exam Back Exam: absent: CVA tenderness (L), CVA tenderness (R) Assessment and Plan - Assessment and Plan (Free Text) Plan: cont iv rx and wound care
[2017-07-22] MEDS: Sodium Chloride 0.9% 1,000 ML IV SCH ×4 (02:48→22:31)
[2017-07-22] MEDS: HYDROmorphone 0.5 mg/0.5 ml ISec IVP PRN ×5 (04:29→21:00)
[2017-07-22] MEDS: Meropenem 1 GM in Sodium Chloride 0.9% 100 ML IVPB SCH ×3 (05:33→21:19)
[2017-07-22] MEDS: Vancomycin 1 gm/NS 200 ml 1 GM/200 ML BAG IVPB SCH (11:24)
--- NOTE | 2017-07-22 18:45 | CP.PCM.PN ---
Subjective - Date & Time of Evaluation Date of Evaluation: 07/22/17 Time of Evaluation: 10:00 - Subjective Subjective: IV RX IN PROGRESS WOUND HAS DRAINAGE Objective - Vital Signs/Intake and Output Vital Signs (last 24 hours): Temp Pulse Resp BP Pulse Ox 98.6 F 64 20 121/77 97 07/22/17 16:00 07/22/17 16:00 07/22/17 16:00 07/22/17 16:00 07/22/17 16:00 Intake and Output: 07/22/17 07/22/17 06:59 18:59 Intake Total 550 1350 Output Total 600 800 Balance -50 550 - Medications Medications: Current Medications Heparin Sodium (Porcine) (Heparin) 5,000 units SC Q8 [facility] Last Admin: 07/22/17 14:04 Dose: Not Given Hydromorphone HCl (Dilaudid) 0.5 mg IVP Q4H PRN PRN Reason: Pain, severe (8-10) Last Admin: 07/22/17 16:59 Dose: 0.5 mg Sodium Chloride (Sodium Chloride 0.9%) 1,000 mls @ 145 mls/hr IV .Q6H54M [facility] Last Admin: 07/22/17 16:04 Dose: Not Given Vancomycin/Sodium Chloride (Vancomycin 1 Gm/Ns 200 Ml) 1 gm in 200 mls @ 166.6 mls/hr IVPB Q12H [facility] PRN Reason: Protocol Stop: 07/24/17 12:01 Last Admin: 07/22/17 11:24 Dose: 166.6 mls/hr Meropenem 1 gm/ Sodium (Chloride) 100 mls @ 100 mls/hr IVPB Q8H [facility] PRN Reason: Protocol Last Admin: 07/22/17 14:00 Dose: 100 mls/hr Micafungin Sodium 100 mg/ (Sodium Chloride) 100 mls @ 100 mls/hr IV Q24H [facility] PRN Reason: Protocol Last Admin: 07/21/17 19:01 Dose: 100 mls/hr - Labs Labs: 07/19/17 07:20 07/19/17 07:20 PT 14.5 SECONDS (9.7-12.2) H 07/19/17 07:20 INR 1.3 07/19/17 07:20 APTT 29 SECONDS (21-34) 07/19/17 07:20 - Constitutional Appears: Non-toxic, Chronically Ill - Head Exam Head Exam: NORMOCEPHALIC - Eye Exam Eye Exam: PERRL - ENT Exam ENT Exam: Mucous Membranes Dry - Neck Exam Neck Exam: absent: Lymphadenopathy - Respiratory Exam Respiratory Exam: Decreased Breath Sounds - Cardiovascular Exam Cardiovascular Exam: REGULAR RHYTHM - GI/Abdominal Exam GI & Abdominal Exam: Distended, Soft - Rectal Exam Rectal Exam: Deferred - Exam Exam: NORMAL INSPECTION - Extremities Exam Extremities Exam: absent: Pedal Edema - Back Exam Back Exam: absent: CVA tenderness (L), CVA tenderness (R) - Neurological Exam Neurological Exam: Alert, Awake, Oriented x3 - Psychiatric Exam Psychiatric exam: Normal Mood - Skin Skin Exam: Dry Assessment and Plan (1) Postoperative wound abscess Status: Acute (2) S/P hernia repair Status: Acute (3) Intra-abdominal abscess Status: Acute - Assessment and Plan (Free Text) Assessment: IV RX IN PROGRESS CONT WOUND CARE
[2017-07-22] MEDS: Micafungin 100 MG in Sodium Chloride 0.9% 100 ML IV SCH (19:12)
[2017-07-23] MEDS: Vancomycin 1 gm/NS 200 ml 1 GM/200 ML BAG IVPB SCH ×3 (00:13→23:30)
[2017-07-23] MEDS: HYDROmorphone 0.5 mg/0.5 ml ISec IVP PRN ×6 (01:05→22:30)
[2017-07-23] MEDS: Meropenem 1 GM in Sodium Chloride 0.9% 100 ML IVPB SCH ×3 (05:00→21:49)
[2017-07-23] MEDS: Sodium Chloride 0.9% 1,000 ML IV SCH ×2 (06:11→13:00)
--- NOTE | 2017-07-23 08:58 | CP.PCM.PN ---
Subjective - Date & Time of Evaluation Date of Evaluation: 07/23/17 Time of Evaluation: 08:57 - Subjective Subjective: condition dstable and drainage persistent but less fungal infection continue present rx improving but slowly Objective - Vital Signs/Intake and Output Vital Signs (last 24 hours): Temp Pulse Resp BP Pulse Ox 98.5 F 68 20 113/73 98 07/23/17 07:48 07/23/17 07:48 07/23/17 07:48 07/23/17 07:48 07/23/17 07:48 Intake and Output: 07/23/17 07/23/17 06:59 18:59 Intake Total 1420 Output Total 1050 Balance 370 - Medications Medications: Current Medications Heparin Sodium (Porcine) (Heparin) 5,000 units SC Q8 [facility] Last Admin: 07/23/17 06:10 Dose: Not Given Hydromorphone HCl (Dilaudid) 0.5 mg IVP Q4H PRN PRN Reason: Pain, severe (8-10) Last Admin: 07/23/17 06:55 Dose: 0.5 mg Sodium Chloride (Sodium Chloride 0.9%) 1,000 mls @ 145 mls/hr IV .Q6H54M [facility] Last Admin: 07/23/17 06:11 Dose: Not Given Vancomycin/Sodium Chloride (Vancomycin 1 Gm/Ns 200 Ml) 1 gm in 200 mls @ 166.6 mls/hr IVPB Q12H [facility] PRN Reason: Protocol Stop: 07/24/17 12:01 Last Admin: 07/23/17 00:13 Dose: 166.6 mls/hr Meropenem 1 gm/ Sodium (Chloride) 100 mls @ 100 mls/hr IVPB Q8H [facility] PRN Reason: Protocol Last Admin: 07/23/17 05:00 Dose: 100 mls/hr Micafungin Sodium 100 mg/ (Sodium Chloride) 100 mls @ 100 mls/hr IV Q24H [facility] PRN Reason: Protocol Last Admin: 07/22/17 19:12 Dose: 100 mls/hr - Labs Labs: 07/19/17 07:20 07/19/17 07:20 PT 14.5 SECONDS (9.7-12.2) H 07/19/17 07:20 INR 1.3 07/19/17 07:20 APTT 29 SECONDS (21-34) 07/19/17 07:20
[2017-07-23] MEDS: Micafungin 100 MG in Sodium Chloride 0.9% 100 ML IV SCH (18:05)
[2017-07-24] MEDS: HYDROmorphone 0.5 mg/0.5 ml ISec IVP PRN ×5 (02:37→21:26)
[2017-07-24] MEDS: Meropenem 1 GM in Sodium Chloride 0.9% 100 ML IVPB SCH ×3 (05:38→21:27)
--- NOTE | 2017-07-24 08:41 | CP.PCM.PN ---
Subjective - Date & Time of Evaluation Date of Evaluation: 07/24/17 Time of Evaluation: 08:38 - Subjective Subjective: SURGERY NOTE FOR DR. MATOS 51M seen and examined at bedside. Patient state pain is well controlled with medication, denies nausea or vomiting, denies fevers or chills, Patient is tolerating diet. Objective - Vital Signs/Intake and Output Vital Signs (last 24 hours): Temp Pulse Resp BP Pulse Ox 98.2 F 66 20 121/81 96 07/24/17 08:33 07/24/17 08:33 07/24/17 08:33 07/24/17 08:33 07/24/17 08:33 Intake and Output: 07/24/17 07/24/17 06:59 18:59 Intake Total 1220 Balance 1220 - Medications Medications: Current Medications Hydromorphone HCl (Dilaudid) 0.5 mg IVP Q4H PRN PRN Reason: Pain, severe (8-10) Last Admin: 07/24/17 02:37 Dose: 0.5 mg Vancomycin/Sodium Chloride (Vancomycin 1 Gm/Ns 200 Ml) 1 gm in 200 mls @ 166.6 mls/hr IVPB Q12H JUJU PRN Reason: Protocol Stop: 07/24/17 12:01 Last Admin: 07/23/17 23:30 Dose: 166.6 mls/hr Meropenem 1 gm/ Sodium (Chloride) 100 mls @ 100 mls/hr IVPB Q8H JUJU PRN Reason: Protocol Last Admin: 07/24/17 05:38 Dose: 100 mls/hr Micafungin Sodium 100 mg/ (Sodium Chloride) 100 mls @ 100 mls/hr IV Q24H JUJU PRN Reason: Protocol Last Admin: 07/23/17 18:05 Dose: 100 mls/hr - Labs Labs: 07/19/17 07:20 07/19/17 07:20 PT 14.5 SECONDS (9.7-12.2) H 07/19/17 07:20 INR 1.3 07/19/17 07:20 APTT 29 SECONDS (21-34) 07/19/17 07:20 - Constitutional Appears: Well, Non-toxic, No Acute Distress - Respiratory Exam Respiratory Exam: Clear to Ausculation Bilateral, NORMAL BREATHING PATTERN - Cardiovascular Exam Cardiovascular Exam: REGULAR RHYTHM, +S1, +S2 - GI/Abdominal Exam GI & Abdominal Exam: Soft. absent: Distended, Firm, Guarding, Rigid, Tenderness , Rebound Additional comments: retention sutures in place inferior pole of incision as small wound which is improving and draining small material - Extremities Exam Extremities Exam: absent: Pedal Edema, Tenderness - Neurological Exam Neurological Exam: Alert, Awake - Skin Skin Exam: Dry, Intact, Normal Color, Warm Assessment and Plan - Assessment and Plan (Free Text) Assessment: 51M with surgical wound infection site Plan: - continue antiobiotics - possible remove some retention sutures - possible wound vac depending on status of wound Further recs discuss with Dr. Ivonne Caballero, PGY2
[2017-07-24] MEDS: Vancomycin 1 gm/NS 200 ml 1 GM/200 ML BAG IVPB SCH (11:22)
[2017-07-24 12:04] LABS: BASO # 0.1 K/uL (0.0-0.2); BASO % 2.3 % (0.0-2.0); EOS # 0.2 K/uL (0.0-0.7); EOS % 4.3 % (0.0-4.0); HEMOGLOBIN 12.1 g/dL (12.0-18.0); LYMPH # 1.4 K/uL (1.0-4.3); LYMPH % 33.4 % (20.0-40.0); MEAN CELL VOLUME 84.7 fL (80.0-94.0); MEAN CORPUSCULAR HEMOGLOBIN 28.6 pg (27.0-31.0); MEAN CORPUSCULAR HGB CONC 33.8 g/dL (33.0-37.0); MEAN PLATELET VOLUME 7.5 fL (7.2-11.7); MONO # 0.4 K/uL (0.0-0.8); MONO % 9.4 % (0.0-10.0); NEUT # 2.2 K/uL (1.8-7.0); NEUT % 50.6 % (50.0-75.0); NRBC % 0.2 % (0.0-2.0); RBC 4.23 Mil/uL (4.40-5.90); RED CELL DISTRIBUTION WIDTH 14.5 % (11.5-14.5); WHITE BLOOD COUNT 4.3 K/uL (4.8-10.8)
[2017-07-24 12:22] LABS: BLOOD UREA NITROGEN 11 mg/dL (9-20); CALCIUM 9.1 mg/dl (8.6-10.4); GFR AFRICAN-AMERICAN > 60; GFR NON-AFRICAN AMERICAN > 60
--- NOTE | 2017-07-24 15:31 | CP.PCM.PN ---
Subjective - Date & Time of Evaluation Date of Evaluation: 07/24/17 Time of Evaluation: 09:00 - Subjective Subjective: no fever no pain 'less drainage Objective - Vital Signs/Intake and Output Vital Signs (last 24 hours): Temp Pulse Resp BP Pulse Ox 98.2 F 66 20 121/81 96 07/24/17 08:33 07/24/17 08:33 07/24/17 08:33 07/24/17 08:33 07/24/17 08:33 Intake and Output: 07/24/17 07/24/17 06:59 18:59 Intake Total 1220 780 Balance 1220 780 - Medications Medications: Current Medications Hydromorphone HCl (Dilaudid) 0.5 mg IVP Q4H PRN PRN Reason: Pain, severe (8-10) Last Admin: 07/24/17 12:36 Dose: 0.5 mg Meropenem 1 gm/ Sodium (Chloride) 100 mls @ 100 mls/hr IVPB Q8H JUJU PRN Reason: Protocol Last Admin: 07/24/17 13:25 Dose: 100 mls/hr Micafungin Sodium 100 mg/ (Sodium Chloride) 100 mls @ 100 mls/hr IV Q24H JUJU PRN Reason: Protocol Last Admin: 07/23/17 18:05 Dose: 100 mls/hr Vancomycin/Sodium Chloride (Vancomycin 1 Gm/Ns 200 Ml) 1 gm in 200 mls @ 133 mls/hr IVPB Q12H JUJU PRN Reason: Protocol Stop: 07/30/17 00:01 - Labs Labs: 07/24/17 11:50 07/24/17 11:50 PT 14.5 SECONDS (9.7-12.2) H 07/19/17 07:20 INR 1.3 07/19/17 07:20 APTT 29 SECONDS (21-34) 07/19/17 07:20 - Constitutional Appears: Non-toxic, Chronically Ill - Head Exam Head Exam: NORMOCEPHALIC - Eye Exam Eye Exam: PERRL - ENT Exam ENT Exam: Mucous Membranes Dry - Neck Exam Neck Exam: absent: Lymphadenopathy - Respiratory Exam Respiratory Exam: Decreased Breath Sounds - Cardiovascular Exam Cardiovascular Exam: REGULAR RHYTHM - GI/Abdominal Exam GI & Abdominal Exam: Distended, Soft Assessment and Plan (1) Postoperative wound abscess Status: Acute (2) S/P hernia repair Status: Acute (3) Intra-abdominal abscess Status: Acute - Assessment and Plan (Free Text) Assessment: for possible wound vac iv rx reordered
[2017-07-24] MEDS: Micafungin 100 MG in Sodium Chloride 0.9% 100 ML IV SCH (18:23)
[2017-07-25] MEDS: Vancomycin 1 gm/NS 200 ml 1 GM/200 ML BAG IVPB SCH ×3 (00:34→12:10)
[2017-07-25] MEDS: Meropenem 1 GM in Sodium Chloride 0.9% 100 ML IVPB SCH ×3 (05:26→22:07)
[2017-07-25] MEDS: Oxycodone/Acetaminophen 5/325 mg Tab PO PRN ×2 (06:52→10:56)
--- NOTE | 2017-07-25 07:46 | CP.PCM.PN ---
Subjective - Date & Time of Evaluation Date of Evaluation: 07/25/17 Time of Evaluation: 07:45 - Subjective Subjective: Surgery No acute events. Denies fever, nausea, vomiting, diarrhea. Draining purulent fluids from wound. Objective - Vital Signs/Intake and Output Vital Signs (last 24 hours): Temp Pulse Resp BP Pulse Ox 98.6 F 65 20 138/85 98 07/24/17 23:34 07/24/17 23:34 07/24/17 23:34 07/24/17 23:34 07/24/17 23:34 Intake and Output: 07/25/17 07/25/17 06:59 18:59 Intake Total 1040 Balance 1040 - Medications Medications: Current Medications Hydromorphone HCl (Dilaudid) 0.5 mg IVP Q4H PRN PRN Reason: Pain, severe (8-10) Last Admin: 07/24/17 21:26 Dose: 0.5 mg Meropenem 1 gm/ Sodium (Chloride) 100 mls @ 100 mls/hr IVPB Q8H JUJU PRN Reason: Protocol Last Admin: 07/25/17 05:26 Dose: Not Given Micafungin Sodium 100 mg/ (Sodium Chloride) 100 mls @ 100 mls/hr IV Q24H JUJU PRN Reason: Protocol Last Admin: 07/24/17 18:23 Dose: 100 mls/hr Vancomycin/Sodium Chloride (Vancomycin 1 Gm/Ns 200 Ml) 1 gm in 200 mls @ 133 mls/hr IVPB Q12H JUJU PRN Reason: Protocol Stop: 07/30/17 00:01 Last Admin: 07/25/17 00:34 Dose: Not Given Oxycodone/Acetaminophen (Percocet 5/325 Mg Tab) 1 tab PO Q4H PRN PRN Reason: prn for pain Stop: 07/27/17 23:25 Last Admin: 07/25/17 06:52 Dose: 1 tab - Labs Labs: 07/24/17 11:50 07/24/17 11:50 PT 14.5 SECONDS (9.7-12.2) H 07/19/17 07:20 INR 1.3 07/19/17 07:20 APTT 29 SECONDS (21-34) 07/19/17 07:20 - Constitutional Appears: No Acute Distress - Head Exam Head Exam: ATRAUMATIC, NORMAL INSPECTION, NORMOCEPHALIC - Eye Exam Eye Exam: EOMI, Normal appearance, PERRL Pupil Exam: NORMAL ACCOMODATION, PERRL - ENT Exam ENT Exam: Mucous Membranes Moist, Normal Exam - Neck Exam Neck Exam: Full ROM, Normal Inspection. absent: Lymphadenopathy - Respiratory Exam Respiratory Exam: Clear to Ausculation Bilateral, NORMAL BREATHING PATTERN - Cardiovascular Exam Cardiovascular Exam: REGULAR RHYTHM, +S1, +S2. absent: Murmur - GI/Abdominal Exam GI & Abdominal Exam: Soft, Normal Bowel Sounds. absent: Distended, Firm, Guarding, Rigid, Tenderness Additional comments: dressing saturated with seropurulent fluids. - Extremities Exam Extremities Exam: Full ROM, Normal Capillary Refill, Normal Inspection. absent : Joint Swelling, Pedal Edema - Back Exam Back Exam: NORMAL INSPECTION - Neurological Exam Neurological Exam: Alert, Awake, CN II-XII Intact, Normal Gait, Oriented x3 - Psychiatric Exam Psychiatric exam: Normal Affect, Normal Mood - Skin Skin Exam: Erythema, Warm Assessment and Plan - Assessment and Plan (Free Text) Assessment: wound infection Wound cx : chloe -ABX and antifungal per ID -Regular diet -Removal of retention suture and wound vac placement - d/w Dr. Coronado
--- NOTE | 2017-07-25 11:44 | CP.PCM.PN ---
Subjective - Date & Time of Evaluation Date of Evaluation: 07/25/17 Time of Evaluation: 09:00 - Subjective Subjective: WOUND CARE IN PROGRESS FOR VAC PLACEMENT TODAY PICC IN PLACE CONT IV RX 2-3 WEEKS MORE Objective - Vital Signs/Intake and Output Vital Signs (last 24 hours): Temp Pulse Resp BP Pulse Ox 98.2 F 67 20 136/81 97 07/25/17 07:47 07/25/17 07:47 07/25/17 07:47 07/25/17 07:47 07/25/17 07:47 Intake and Output: 07/25/17 07/25/17 06:59 18:59 Intake Total 1040 Balance 1040 - Medications Medications: Current Medications Meropenem 1 gm/ Sodium (Chloride) 100 mls @ 100 mls/hr IVPB Q8H JUJU PRN Reason: Protocol Last Admin: 07/25/17 05:26 Dose: Not Given Micafungin Sodium 100 mg/ (Sodium Chloride) 100 mls @ 100 mls/hr IV Q24H JUJU PRN Reason: Protocol Last Admin: 07/24/17 18:23 Dose: 100 mls/hr Vancomycin/Sodium Chloride (Vancomycin 1 Gm/Ns 200 Ml) 1 gm in 200 mls @ 133 mls/hr IVPB Q12H JUJU PRN Reason: Protocol Stop: 07/30/17 00:01 Last Admin: 07/25/17 00:34 Dose: Not Given Oxycodone/Acetaminophen (Percocet 5/325 Mg Tab) 1 tab PO Q4H PRN PRN Reason: prn for pain Stop: 07/27/17 23:25 Last Admin: 07/25/17 10:56 Dose: 1 tab - Labs Labs: 07/24/17 11:50 07/24/17 11:50 PT 14.5 SECONDS (9.7-12.2) H 07/19/17 07:20 INR 1.3 07/19/17 07:20 APTT 29 SECONDS (21-34) 07/19/17 07:20 - Constitutional Appears: Non-toxic, Chronically Ill - Head Exam Head Exam: NORMOCEPHALIC - Eye Exam Eye Exam: PERRL - ENT Exam ENT Exam: Mucous Membranes Dry - Neck Exam Neck Exam: absent: Lymphadenopathy - Respiratory Exam Respiratory Exam: Decreased Breath Sounds - Cardiovascular Exam Cardiovascular Exam: REGULAR RHYTHM - GI/Abdominal Exam GI & Abdominal Exam: Distended - Rectal Exam Rectal Exam: Deferred - Exam Exam: NORMAL INSPECTION - Extremities Exam Extremities Exam: absent: Pedal Edema - Back Exam Back Exam: absent: CVA tenderness (L), CVA tenderness (R) Assessment and Plan (1) Postoperative wound abscess Status: Acute (2) S/P hernia repair Status: Acute (3) Intra-abdominal abscess Status: Acute
--- NOTE | 2017-07-25 11:51 | RAD ---
Chest x-ray single frontal view History: PICC line insertion. Comparison: 07/05/2017 Findings: Right PICC line with tip extending to the cavoatrial junction. No evidence of postprocedure pneumothorax. Mild venous congestion. Right hilar prominence. Mild cardiomegaly. Surgical clips in the right upper abdomen. Degenerative changes the spine. Impression: Right PICC line with tip extending to the cavoatrial junction. No evidence of postprocedure pneumothorax. Mild venous congestion. Right hilar prominence. Mild cardiomegaly.
[2017-07-25] MEDS: HYDROmorphone 0.5 mg/0.5 ml ISec IVP PRN ×2 (18:02→22:03)
[2017-07-25] MEDS: Micafungin 100 MG in Sodium Chloride 0.9% 100 ML IV SCH (19:23)
[2017-07-26] MEDS: Vancomycin 1 gm/NS 200 ml 1 GM/200 ML BAG IVPB SCH ×3 (00:04→23:59)
[2017-07-26] MEDS: HYDROmorphone 0.5 mg/0.5 ml ISec IVP PRN ×6 (02:05→22:31)
[2017-07-26] MEDS: Meropenem 1 GM in Sodium Chloride 0.9% 100 ML IVPB SCH ×3 (05:47→21:23)
--- NOTE | 2017-07-26 07:19 | CP.PCM.PN ---
Subjective - Date & Time of Evaluation Date of Evaluation: 07/26/17 Time of Evaluation: 07:17 - Subjective Subjective: General Surgery Progress Note for Dr. Coronado This 51M was seen and evaluated this AM at bedside no acute events overnight. Patient reports pain well controlled with pain medication. He is tolerating diet and ambulating. He is concerned that while the suction appears functional on his wound vac there is no output. Denies any fevers chills chest pain. Objective - Vital Signs/Intake and Output Vital Signs (last 24 hours): Temp Pulse Resp BP Pulse Ox 98.2 F 67 20 122/81 97 07/26/17 00:09 07/26/17 00:09 07/26/17 00:09 07/26/17 00:09 07/26/17 00:09 Intake and Output: 07/26/17 07/26/17 06:59 18:59 Intake Total 700 540 Output Total 0 1000 Balance 700 -460 - Medications Medications: Current Medications Hydromorphone HCl (Dilaudid) 0.5 mg IVP Q4H PRN PRN Reason: Pain, severe (8-10) Last Admin: 07/26/17 06:05 Dose: 0.5 mg Meropenem 1 gm/ Sodium (Chloride) 100 mls @ 100 mls/hr IVPB Q8H JUJU PRN Reason: Protocol Last Admin: 07/26/17 05:47 Dose: 100 mls/hr Micafungin Sodium 100 mg/ (Sodium Chloride) 100 mls @ 100 mls/hr IV Q24H JUJU PRN Reason: Protocol Last Admin: 07/25/17 19:23 Dose: 100 mls/hr Vancomycin/Sodium Chloride (Vancomycin 1 Gm/Ns 200 Ml) 1 gm in 200 mls @ 133 mls/hr IVPB Q12H JUJU PRN Reason: Protocol Stop: 07/30/17 00:01 Last Admin: 07/26/17 00:04 Dose: 133 mls/hr Ketorolac Tromethamine (Toradol) 30 mg IVP Q6 PRN PRN Reason: Pain, moderate (4-7) Oxycodone/Acetaminophen (Percocet 5/325 Mg Tab) 1 tab PO Q4H PRN PRN Reason: prn for pain Stop: 07/27/17 23:25 Last Admin: 07/25/17 10:56 Dose: 1 tab - Labs Labs: 07/24/17 11:50 07/24/17 11:50 PT 14.5 SECONDS (9.7-12.2) H 07/19/17 07:20 INR 1.3 07/19/17 07:20 APTT 29 SECONDS (21-34) 07/19/17 07:20 - Constitutional Appears: No Acute Distress - Head Exam Head Exam: ATRAUMATIC, NORMAL INSPECTION, NORMOCEPHALIC - Eye Exam Eye Exam: EOMI, Normal appearance, - ENT Exam ENT Exam: Mucous Membranes Moist, Normal Exam - Neck Exam Neck Exam: Full ROM, Normal Inspection. absent: Lymphadenopathy - Respiratory Exam Respiratory Exam: Clear to Ausculation Bilateral, NORMAL BREATHING PATTERN - Cardiovascular Exam Cardiovascular Exam: REGULAR RHYTHM, +S1, +S2. absent: Murmur - GI/Abdominal Exam GI & Abdominal Exam: Soft, Normal Bowel Sounds. absent: Distended, Firm, Guarding, Rigid, Tenderness Additional comments: Wound vac in place with no leaks detected - Extremities Exam Extremities Exam: Full ROM, Normal Capillary Refill, Normal Inspection. absent : Joint Swelling, Pedal Edema - Back Exam Back Exam: NORMAL INSPECTION - Neurological Exam Neurological Exam: Alert, Awake, CN II-XII Intact, Normal Gait, Oriented x3 - Psychiatric Exam Psychiatric exam: Normal Affect, Normal Mood - Skin Skin Exam: Erythema, Warm Assessment and Plan - Assessment and Plan (Free Text) Assessment: 51M with surgical site infection Vital signs stable Wound vac in place ID recommends 2-3weeks of IV ABX Ambulate Regular diet D/W Dr. Ivonne Aragon PGY2
--- NOTE | 2017-07-26 11:53 | CP.PCM.PN ---
Subjective - Date & Time of Evaluation Date of Evaluation: 07/26/17 Time of Evaluation: 09:00 - Subjective Subjective: vanco trough ordered Objective - Vital Signs/Intake and Output Vital Signs (last 24 hours): Temp Pulse Resp BP Pulse Ox 97.6 F 66 20 144/87 96 07/26/17 07:28 07/26/17 07:28 07/26/17 07:28 07/26/17 07:28 07/26/17 07:28 Intake and Output: 07/26/17 07/26/17 06:59 18:59 Intake Total 700 540 Output Total 0 1000 Balance 700 -460 - Medications Medications: Current Medications Hydromorphone HCl (Dilaudid) 0.5 mg IVP Q4H PRN PRN Reason: Pain, severe (8-10) Last Admin: 07/26/17 10:13 Dose: 0.5 mg Meropenem 1 gm/ Sodium (Chloride) 100 mls @ 100 mls/hr IVPB Q8H JUJU PRN Reason: Protocol Last Admin: 07/26/17 05:47 Dose: 100 mls/hr Micafungin Sodium 100 mg/ (Sodium Chloride) 100 mls @ 100 mls/hr IV Q24H JUJU PRN Reason: Protocol Last Admin: 07/25/17 19:23 Dose: 100 mls/hr Vancomycin/Sodium Chloride (Vancomycin 1 Gm/Ns 200 Ml) 1 gm in 200 mls @ 133 mls/hr IVPB Q12H JUJU PRN Reason: Protocol Stop: 07/30/17 00:01 Last Admin: 07/26/17 00:04 Dose: 133 mls/hr Ketorolac Tromethamine (Toradol) 30 mg IVP Q6 PRN PRN Reason: Pain, moderate (4-7) Oxycodone/Acetaminophen (Percocet 5/325 Mg Tab) 1 tab PO Q4H PRN PRN Reason: prn for pain Stop: 07/27/17 23:25 Last Admin: 07/25/17 10:56 Dose: 1 tab - Labs Labs: 07/24/17 11:50 07/24/17 11:50 PT 14.5 SECONDS (9.7-12.2) H 07/19/17 07:20 INR 1.3 07/19/17 07:20 APTT 29 SECONDS (21-34) 07/19/17 07:20 Assessment and Plan (1) Postoperative wound abscess Status: Acute (2) S/P hernia repair Status: Acute (3) Intra-abdominal abscess Status: Acute
[2017-07-26] MEDS: Micafungin 100 MG in Sodium Chloride 0.9% 100 ML IV SCH (19:00)
[2017-07-26] MEDS ORDERED: DiphenhydrAMINE 50 mg/ml Inj IVP STA (21:41)
[2017-07-27] MEDS: HYDROmorphone 0.5 mg/0.5 ml ISec IVP PRN ×6 (02:25→22:55)
[2017-07-27] MEDS: Meropenem 1 GM in Sodium Chloride 0.9% 100 ML IVPB SCH ×3 (05:43→21:43)
[2017-07-27] MEDS: Vancomycin 1 gm/NS 200 ml 1 GM/200 ML BAG IVPB SCH ×2 (11:01→23:31)
--- NOTE | 2017-07-27 12:12 | CP.PCM.PN ---
Subjective - Date & Time of Evaluation Date of Evaluation: 07/27/17 Time of Evaluation: 12:11 - Subjective Subjective: small amount of drainage in canister otherwsie stable will review re change of vac system Objective - Vital Signs/Intake and Output Vital Signs (last 24 hours): Temp Pulse Resp BP Pulse Ox 98.6 F 62 20 129/86 95 07/27/17 07:00 07/27/17 07:00 07/27/17 07:00 07/27/17 07:00 07/27/17 07:00 Intake and Output: 07/27/17 07/27/17 06:59 18:59 Intake Total 500 Output Total 950 Balance -450 - Medications Medications: Current Medications Hydromorphone HCl (Dilaudid) 0.5 mg IVP Q4H PRN PRN Reason: Pain, severe (8-10) Last Admin: 07/27/17 10:52 Dose: 0.5 mg Meropenem 1 gm/ Sodium (Chloride) 100 mls @ 100 mls/hr IVPB Q8H JUJU PRN Reason: Protocol Last Admin: 07/27/17 05:43 Dose: 100 mls/hr Micafungin Sodium 100 mg/ (Sodium Chloride) 100 mls @ 100 mls/hr IV Q24H JUJU PRN Reason: Protocol Last Admin: 07/26/17 19:00 Dose: 100 mls/hr Vancomycin/Sodium Chloride (Vancomycin 1 Gm/Ns 200 Ml) 1 gm in 200 mls @ 133 mls/hr IVPB Q12H JUJU PRN Reason: Protocol Stop: 07/30/17 00:01 Last Admin: 07/27/17 11:01 Dose: 133 mls/hr Ketorolac Tromethamine (Toradol) 30 mg IVP Q6 PRN PRN Reason: Pain, moderate (4-7) Oxycodone/Acetaminophen (Percocet 5/325 Mg Tab) 1 tab PO Q4H PRN PRN Reason: prn for pain Stop: 07/27/17 23:25 Last Admin: 07/25/17 10:56 Dose: 1 tab Zolpidem Tartrate (Ambien) 5 mg PO HS PRN PRN Reason: Insomnia Last Admin: 07/26/17 21:58 Dose: 5 mg - Labs Labs: 07/24/17 11:50 07/24/17 11:50 PT 14.5 SECONDS (9.7-12.2) H 07/19/17 07:20 INR 1.3 07/19/17 07:20 APTT 29 SECONDS (21-34) 07/19/17 07:20
[2017-07-27 16:16] VITALS: O2SAT 97
--- NOTE | 2017-07-27 16:52 | CP.PCM.PN ---
Subjective - Date & Time of Evaluation Date of Evaluation: 07/27/17 Time of Evaluation: 09:00 - Subjective Subjective: wound vac in place alert nad denies fever Objective - Vital Signs/Intake and Output Vital Signs (last 24 hours): Temp Pulse Resp BP Pulse Ox 97.5 F L 62 20 138/86 97 07/27/17 15:00 07/27/17 15:00 07/27/17 15:00 07/27/17 15:00 07/27/17 15:00 Intake and Output: 07/27/17 07/27/17 06:59 18:59 Intake Total 500 Output Total 950 Balance -450 - Medications Medications: Current Medications Hydromorphone HCl (Dilaudid) 0.5 mg IVP Q4H PRN PRN Reason: Pain, severe (8-10) Last Admin: 07/27/17 14:53 Dose: 0.5 mg Meropenem 1 gm/ Sodium (Chloride) 100 mls @ 100 mls/hr IVPB Q8H JUJU PRN Reason: Protocol Last Admin: 07/27/17 14:16 Dose: 100 mls/hr Micafungin Sodium 100 mg/ (Sodium Chloride) 100 mls @ 100 mls/hr IV Q24H JUJU PRN Reason: Protocol Last Admin: 07/26/17 19:00 Dose: 100 mls/hr Vancomycin/Sodium Chloride (Vancomycin 1 Gm/Ns 200 Ml) 1 gm in 200 mls @ 133 mls/hr IVPB Q12H JUJU PRN Reason: Protocol Stop: 07/30/17 00:01 Last Admin: 07/27/17 11:01 Dose: 133 mls/hr Ketorolac Tromethamine (Toradol) 30 mg IVP Q6 PRN PRN Reason: Pain, moderate (4-7) Oxycodone/Acetaminophen (Percocet 5/325 Mg Tab) 1 tab PO Q4H PRN PRN Reason: prn for pain Stop: 07/27/17 23:25 Last Admin: 07/25/17 10:56 Dose: 1 tab Zolpidem Tartrate (Ambien) 5 mg PO HS PRN PRN Reason: Insomnia Last Admin: 07/26/17 21:58 Dose: 5 mg - Labs Labs: 07/24/17 11:50 07/24/17 11:50 PT 14.5 SECONDS (9.7-12.2) H 07/19/17 07:20 INR 1.3 07/19/17 07:20 APTT 29 SECONDS (21-34) 07/19/17 07:20 - Constitutional Appears: Non-toxic, Chronically Ill - Head Exam Head Exam: NORMOCEPHALIC - Eye Exam Eye Exam: PERRL - ENT Exam ENT Exam: Mucous Membranes Dry - Neck Exam Neck Exam: absent: Lymphadenopathy - Respiratory Exam Respiratory Exam: Decreased Breath Sounds - Cardiovascular Exam Cardiovascular Exam: REGULAR RHYTHM - GI/Abdominal Exam GI & Abdominal Exam: Distended, Soft - Rectal Exam Rectal Exam: Deferred - Exam Exam: NORMAL INSPECTION - Extremities Exam Extremities Exam: absent: Pedal Edema - Back Exam Back Exam: absent: CVA tenderness (L), CVA tenderness (R) - Neurological Exam Neurological Exam: Alert, Awake Assessment and Plan (1) Postoperative wound abscess Status: Acute (2) S/P hernia repair Status: Acute (3) Intra-abdominal abscess Status: Acute - Assessment and Plan (Free Text) Assessment: cont iv rx and wound vac follow up as out pt
[2017-07-27] MEDS: Micafungin 100 MG in Sodium Chloride 0.9% 100 ML IV SCH (18:55)
[2017-07-28] MEDS: HYDROmorphone 0.5 mg/0.5 ml ISec IVP PRN ×4 (03:00→14:55)
[2017-07-28] MEDS: Meropenem 1 GM in Sodium Chloride 0.9% 100 ML IVPB SCH ×2 (05:56→14:02)
[2017-07-28 07:57] VITALS: BP 128/82; PULSE 65; TEMP 98.2
--- NOTE | 2017-07-28 08:06 | CP.PCM.PN ---
Subjective - Date & Time of Evaluation Date of Evaluation: 07/28/17 Time of Evaluation: 08:03 - Subjective Subjective: General Surgery Progress Note for Dr. Coronado This 51M was seen and evaluated this AM at bedside. He complains of pain that responds well to dilaudid, he reports he does not want percocet because it causes him constipation. He denies chest pain and sob, he is ambulating tolerating diet. Denies fevers or chills. He discussed plans for self vac changes at home along with possible combination of self ABX administration along with home nurse. Objective - Vital Signs/Intake and Output Vital Signs (last 24 hours): Temp Pulse Resp BP Pulse Ox 98.2 F 65 20 128/82 97 07/28/17 07:56 07/28/17 07:56 07/28/17 07:56 07/28/17 07:56 07/28/17 07:56 Intake and Output: 07/28/17 07/28/17 06:59 18:59 Intake Total 1460 Output Total 600 Balance 860 - Medications Medications: Current Medications Hydromorphone HCl (Dilaudid) 0.5 mg IVP Q4H PRN PRN Reason: Pain, severe (8-10) Last Admin: 07/28/17 07:04 Dose: 0.5 mg Meropenem 1 gm/ Sodium (Chloride) 100 mls @ 100 mls/hr IVPB Q8H JUJU PRN Reason: Protocol Last Admin: 07/28/17 05:56 Dose: 100 mls/hr Micafungin Sodium 100 mg/ (Sodium Chloride) 100 mls @ 100 mls/hr IV Q24H JUJU PRN Reason: Protocol Last Admin: 07/27/17 18:55 Dose: 100 mls/hr Vancomycin/Sodium Chloride (Vancomycin 1 Gm/Ns 200 Ml) 1 gm in 200 mls @ 133 mls/hr IVPB Q12H JUJU PRN Reason: Protocol Stop: 07/30/17 00:01 Last Admin: 07/27/17 23:31 Dose: 133 mls/hr Zolpidem Tartrate (Ambien) 5 mg PO HS PRN PRN Reason: Insomnia Last Admin: 07/27/17 23:00 Dose: 5 mg - Labs Labs: 07/24/17 11:50 07/24/17 11:50 PT 14.5 SECONDS (9.7-12.2) H 07/19/17 07:20 INR 1.3 07/19/17 07:20 APTT 29 SECONDS (21-34) 07/19/17 07:20 - Constitutional Appears: Non-toxic, No Acute Distress - Head Exam Head Exam: ATRAUMATIC, NORMOCEPHALIC - Eye Exam Eye Exam: EOMI, Normal appearance - Respiratory Exam Respiratory Exam: NORMAL BREATHING PATTERN - Cardiovascular Exam Cardiovascular Exam: +S1, +S2 - GI/Abdominal Exam GI & Abdominal Exam: Soft. absent: Distended, Firm, Guarding, Rigid, Tenderness - Neurological Exam Neurological Exam: Alert, Awake - Psychiatric Exam Psychiatric exam: Normal Affect, Normal Mood - Skin Skin Exam: Dry, Intact Assessment and Plan - Assessment and Plan (Free Text) Assessment: 51M with surgical site infection Vital signs stable Wound vac to be changed today with the assistance of the wound care nurse ID recommends 2-3weeks of IV ABX Ambulate Regular diet D/W Dr. Ivonne Aragon PGY2
[2017-07-28] MEDS: Vancomycin 1 gm/NS 200 ml 1 GM/200 ML BAG IVPB SCH (11:03)
--- NOTE | 2017-07-28 13:04 | CP.PCM.PN ---
Subjective - Date & Time of Evaluation Date of Evaluation: 07/28/17 Time of Evaluation: 13:02 - Subjective Subjective: [employer] REQUESTED BY CM TO CONFIRM ABX WITH ID FOR PT'S D/C. D/C ORDER ALREADY PLACED BY SURGICAL RESIDENTS, HOWEVER, PT WILL BE D/C HOME WITH IV INFUSION AND WOUND VAC. I DISCUSSED ABX WITH DR. ELENA. PER DR. ELENA, PT TO CONTINUE THE FOLLOWING: MEROPENEM 1 GM IV Q8 HOURS, MICAFUNGIN 100 MG IV Q DAILY, AND VANCOMYCIN 1 GM IV Q12 HOURS---ALL TO BE GIVEN X3 WEEKS (START ON 07/28/1806 ). WILL ALSO GIVE RX FOR VANCO TROUGH, CBC, CMP Q WEEK X3 WEEKS (TO START ON ). RX GIVEN TO CM BY THIS [employer]. CM WILL MAKE ALL HOME INFUSION ARRANGEMENTS. NO FURTHER ORDERS. Objective - Vital Signs/Intake and Output Vital Signs (last 24 hours): Temp Pulse Resp BP Pulse Ox 98.2 F 65 20 128/82 97 07/28/17 07:56 07/28/17 07:56 07/28/17 07:56 07/28/17 07:56 07/28/17 07:56 Intake and Output: 07/28/17 07/28/17 06:59 18:59 Intake Total 1460 Output Total 600 Balance 860 - Medications Medications: Current Medications Hydromorphone HCl (Dilaudid) 0.5 mg IVP Q4H PRN PRN Reason: Pain, severe (8-10) Last Admin: 07/28/17 10:57 Dose: 0.5 mg Meropenem 1 gm/ Sodium (Chloride) 100 mls @ 100 mls/hr IVPB Q8H JUJU PRN Reason: Protocol Last Admin: 07/28/17 05:56 Dose: 100 mls/hr Micafungin Sodium 100 mg/ (Sodium Chloride) 100 mls @ 100 mls/hr IV Q24H JUJU PRN Reason: Protocol Last Admin: 07/27/17 18:55 Dose: 100 mls/hr Vancomycin/Sodium Chloride (Vancomycin 1 Gm/Ns 200 Ml) 1 gm in 200 mls @ 133 mls/hr IVPB Q12H JUJU PRN Reason: Protocol Stop: 07/30/17 00:01 Last Admin: 07/28/17 11:03 Dose: 133 mls/hr Zolpidem Tartrate (Ambien) 5 mg PO HS PRN PRN Reason: Insomnia Last Admin: 07/27/17 23:00 Dose: 5 mg - Labs Labs: 07/24/17 11:50 07/24/17 11:50 PT 14.5 SECONDS (9.7-12.2) H 07/19/17 07:20 INR 1.3 07/19/17 07:20 APTT 29 SECONDS (21-34) 07/19/17 07:20
== END 2017-07-28 16:00 | disposition home health service (06) | DRG 862 ==
LOC: C.ER 13:16 → C.9E 13:58 → C.3T 15:52
PROVIDERS: ADMIT Surgery Vascular Surgery; ATTEND Surgery Vascular Surgery
PROC: 2W13X6Z Compression of Abdominal Wall using Pressure Dressing (ICD-10-PCS; principal; 2017-07-25)
PROC: 02HV33Z Insertion of Infusion Device into Superior Vena Cava, Percutaneous Approach (ICD-10-PCS; 2017-07-25)
DX: T81.4XXA Infection following a procedure, initial encounter (principal); K65.1 Peritoneal abscess; N18.9 Chronic kidney disease, unspecified; I12.9 Hypertensive chronic kidney disease with stage 1 through stage 4 chronic kidney disease, or unspecified chronic kidney disease; E03.9 Hypothyroidism, unspecified; Z90.49 Acquired absence of other specified parts of digestive tract; Z87.442 Personal history of urinary calculi; Z87.891 Personal history of nicotine dependence; Z91.013 Allergy to seafood